=== PATIENT | female | born 1940 | race Caucasian/White ===

== ENCOUNTER 2017-01-02 11:10 | Inpatient (IN) | payer MEDICARE ==
[2017-01-02 11:10] VITALS: BMI 28.3
[2017-01-02 12:59] LABS: BASO # 0.1 K/uL (0.0-0.2); BASO % 0.6 % (0.0-2.0); EOS # 0.1 K/uL (0.0-0.7); EOS % 1.3 % (0.0-4.0); HEMATOCRIT 33.5 % (34.0-47.0); LYMPH # 2.1 K/uL (1.0-4.3); LYMPH % 21.9 % (20.0-40.0); MEAN CORPUSCULAR HEMOGLOBIN 24.6 pg (27.0-31.0); MEAN CORPUSCULAR HGB CONC 31.8 g/dL (33.0-37.0); MEAN PLATELET VOLUME 8.7 fL (7.2-11.7); MONO # 0.9 K/uL (0.0-0.8); MONO % 9.4 % (0.0-10.0); RED CELL DISTRIBUTION WIDTH 16.7 % (11.5-14.5); WHITE BLOOD COUNT 9.8 K/uL (4.8-10.8)
--- NOTE | 2017-01-02 13:10 | RAD ---
HISTORY: chest pain COMPARISON: Chest x-ray performed 04/10/14 TECHNIQUE: Chest PA and lateral FINDINGS: Examination limited by habitus. LUNGS: Mild biapical pleural thickening. Mild bilateral lateral pleural thickening. No focal consolidation. Chronic appearing interstitial markings. Please note that chest x-ray has limited sensitivity for the detection of pulmonary masses. PLEURA: No significant pleural effusion identified. No definite pneumothorax . CARDIOVASCULAR: Heart size appears top normal. Atherosclerotic calcifications. OSSEOUS STRUCTURES: Mildly displaced right lateral 11th rib fracture. Osseous demineralization. Degenerative changes of the spine and shoulders. Acromioclavicular arthropathy. VISUALIZED UPPER ABDOMEN: Unremarkable. OTHER FINDINGS: None. IMPRESSION: Mildly displaced right lateral 11th rib fracture, appears acute. Correlate clinically. Additional findings as above.
[2017-01-02 13:11] LABS: MEAN CELL VOLUME 77.4 fL (81.0-99.0)
[2017-01-02 13:12] LABS: CHLORIDE 93 mmol/L (98-107); POTASSIUM 3.5 mmol/L (3.6-5.2); SODIUM 137 mmol/L (132-148)
[2017-01-02 13:14] LABS: ALKALINE PHOSPHATASE 276 U/L (38-126); AST/SGOT 66 U/L (14-36); BILIRUBIN,TOTAL 0.8 mg/dL (0.2-1.3); CARBON DIOXIDE 31 mmol/L (22-30); GFR AFRICAN-AMERICAN 48; TOTAL PROTEIN 7.8 g/dL (6.3-8.3)
[2017-01-02 13:15] LABS: ALT/SGPT 73 U/L (9-52); BLOOD UREA NITROGEN 23 mg/dL (7-17); CALCIUM 9.3 mg/dl (8.6-10.4); GLUCOSE,RANDOM 91 mg/dL (65-105)
--- NOTE | 2017-01-02 13:29 | C.PDOC ---
History Of Present Illness Patient is a 76 y/o female, whose PMHx includes diabetes, HTN, and chronic ear infections, that is brought to the ED by son for evaluation of multiple syncopal episodes over the last month. Patient was found unconscious on the kitchen floor by neighbor today. It is unclear how long the patient had been unconscious for. Patient complains of occasional chest pain but no chest pain at the moment. Patient also complains of pain to right upper jaw/TMJ, and pain to right ribs below breast s/p fall. Otherwise, denies any shortness of breath, fever, chills, or any other associated symptoms at this time. Time Seen by Provider: 01/02/17 12:17 Chief Complaint (Nursing): Syncope History Per: Patient History/Exam Limitations: no limitations Onset/Duration Of Symptoms: Days Current Symptoms Are (Timing): Still Present Fall Associated With With Symptoms: Yes Recent travel outside of the [place]: No Additional History Per: Family Past Medical History Reviewed: Historical Data, Nursing Documentation, Vital Signs Vital Signs: Last Vital Signs Temp Pulse 74 01/02/17 16:44 Resp 18 01/02/17 16:44 BP 108/75 01/02/17 16:44 Pulse Ox 95 01/02/17 18:56 - Medical History PMH: Arthritis, Asthma, Depression, Diabetes, Fractures (RT ARM), Gastritis, HTN , Kidney Stones (PASSED NO SURGERY), Chronic Kidney Disease, Sleep Apnea (C-PAP) Comment Only: Alzheimer's Disease (MEMORY LOSS) Surgical History: Tonsillectomy - [facility] Procedures CL FX REDUC-RADIUS/ULNA (03/27/14) INJECTION INTO JOINT (04/17/14) OP RED-INT FIX RAD/ULNA (04/17/14) OTHER JOINT MOBILIZATION (04/17/14) Family History: States: Unknown Family Hx, Hypertension - Social History Hx Tobacco Use: No Hx Alcohol Use: No Hx Substance Use: No - Immunization History Hx Tetanus Toxoid Vaccination: No Hx Influenza Vaccination: No Hx Pneumococcal Vaccination: No Review Of Systems Except As Marked, All Systems Reviewed And Found Negative. Constitutional: Negative for: Fever, Chills ENT: Positive for: Other (right jaw pain) Cardiovascular: Positive for: Other (right rib pain). Negative for: Chest Pain , Palpitations, Edema, Light Headedness Respiratory: Negative for: Cough, Shortness of Breath, Sputum, Wheezing Musculoskeletal: Negative for: Back Pain Neurological: Negative for: Weakness, Numbness, Headache, Dizziness Physical Exam - Physical Exam Appears: Non-toxic, Other (mildly uncomfortable) Skin: Normal Color, Warm, Dry Head: Atraumatic, Normacephalic, Other (Pt has difficulty fully opening mouth; tenderness and swelling to right TMJ) Eye(s): bilateral: Normal Inspection, EOMI Oral Mucosa: Moist Neck: Normal ROM, No Midline Cervical Tenderness, No Paracervical Tenderness, Supple Chest: Symmetrical, No Deformity, Tenderness (anterior lateral ribs below breast ) Cardiovascular: Rhythm Regular, No Murmur Respiratory: Other (bilateral basilar crackles, R > L) Gastrointestinal/Abdominal: Soft, No Tenderness Extremity: Normal ROM, No Pedal Edema, No Calf Tenderness, Capillary Refill (< 2 sec.), No Deformity Extremity: Bilateral: Normal Color And Temperature Pulses: Left Dorsalis Pedis: Normal, Right Dorsalis Pedis: Normal Neurological/Psych: Oriented x3 (awake, alert), Normal Speech, Normal Cognition ED Course And Treatment - Laboratory Results Result Diagrams: 01/02/17 12:46 01/02/17 12:46 ECG: Interpreted By Me ECG Rhythm: Sinus Rhythm ECG Interpretation: Abnormal Interpretation Of ECG: nsr, lad, non specific t wave abnormality O2 Sat by Pulse Oximetry: 95 (on RA) Pulse Ox Interpretation: Abnormal (mild hypoxia) - CT Scan/US Head CT Other Rad Studies (CT/US): Read By Radiologist, Radiology Report Reviewed CT/US Interpretation: FINDINGS: HEMORRHAGE: No intracranial hemorrhage. BRAIN : No mass effect or edema. Intracranial atherosclerotic calcifications. Scattered periventricular and subcortical white matter hypodensities, which are nonspecific, but often seen with chronic microvascular ischemic disease. Please note that MRI with diffusion imaging is more sensitive in the detection of acute ischemic event. VENTRICLES: No hydrocephalus. CALVARIUM: Unremarkable. PARANASAL SINUSES: Unremarkable as visualized. No significant inflammatory changes. MASTOID AIR CELLS: Right mastoid air cells appear clear. Status post left mastoidectomy. OTHER FINDINGS: None. IMPRESSION: No acute intracranial pathology identified. Toro status post left mastoidectomy. Please refer to CT orbits for more detailed discussion. Orbits CT Other Rad Studies (CT/US): Read By Radiologist, Radiology Report Reviewed CT/US Interpretation: Findings: The current study reveals no evidence of acute maxillofacial skeletal fractures. . . The visualized bony structures intact. The bony orbits are intact. On the globes are intact. Patient is status post bilateral cataract surgery. Small calcifications seen along the medial and lateral margins of the right and medial margin left globe at the insertion sites of the extraocular musculature. No retrobulbar are collections are hemorrhages. Optic nerves and extraocular musculature unremarkable. The frontal and sphenoid sinuses are slightly underpneumatized however the remaining visualized paranasal sinuses are well-developed. The paranasal sinuses are relatively well aerated with no fluid levels seen to suggest acute sinusitis. Minor mucosal thickening noted in the left chamber sphenoid sinus with minimal mucosal thickening in several ethmoid air cells. . The nasal bones and maxillary intact. The nasal spine of the maxilla also intact. Postoperative changes left middle ear canal and mastoid air complex. There has been partial resection of the the posterior and superior mastoid air cells which were or adjacent and making up the posterior and superior bony wall of the external auditory canal. Several residual left sided superior mastoid air cells are opacified which could be due to some granulation tissue scarring or. There appears to be some scarring/ granulation tissue lining the inner margin of the external auditory canal and covering the residual mastoid defect. . There is soft tissue also noted within the attic likely representing postoperative granulation tissue as well. The definitive bony dehiscence of the tegmen tympani. The drum spur as well as the ossicular chain have been removed. Thickening and presumed scarring of the left tympanic membrane on. Some residual scarring also lines the middle ear canal is well. Impression: No acute maxillofacial skeletal fractures. Stable postoperative resection changes left mastoid air complex as detailed above. Status post bilateral cataract surgery. Progress Note: Head CT, orbits/facial CT, EKG, CXR, and labs ordered and reviewed. Medical Decision Making Medical Decision Makin77 y/o female with htn dmdiscussed with Dr Hinson and Dr Armstrong, and multiple syncopal episodes over last month. will admit. Disposition Discussed With : Bola Hinson Doctor Will See Patient In The: Hospital - Disposition Disposition: HOSPITALIZED Disposition Time: 14:45 Condition: SERIOUS - Clinical Impression Clinical Impression: Syncope - PA / UNDERWATER ROBOTICIST / Resident Statement MD/DO has reviewed & agrees with the documentation as recorded. - Scribe Statement The provider has reviewed the documentation as recorded by the Roibe Reddy Pearson All medical record entries made by the Roibe were at my direction and personally dictated by me. I have reviewed the chart and agree that the record accurately reflects my personal performance of the history, physical exam, medical decision making, and the department course for this patient. I have also personally directed, reviewed, and agree with the discharge instructions and disposition. Decision To Admit - Pt Status Changed To: Hospital Disposition Of: Inpatient - Admit Certification Admit to Inpatient:: After my assessment, the patient will require hospitalization for at least two midnights. This is because of the severity of symptoms shown, intensity of services needed, and/or the medical risk in this patient being treated as an outpatient. - InPatient: Physician Admission Certification: I certify that this patient requires 2 or more midnights of care for the following reason:: pt needs cardiac workup for multiple syncopal episodes - . Bed Request Type: Telemetry Patient Diagnosis: Syncope
--- NOTE | 2017-01-02 13:59 | CT ---
PROCEDURE: CT HEAD WITHOUT CONTRAST. HISTORY: syncope COMPARISON: Noncontrast head CT performed 03/27/14 TECHNIQUE: Axial computed tomography images were obtained through the head/brain without intravenous contrast. Radiation dose: Total exam DLP = 981.84 mGy-cm. This CT exam was performed using one or more of the following dose reduction techniques: Automated exposure control, adjustment of the mA and/or kV according to patient size, and/or use of iterative reconstruction technique. FINDINGS: HEMORRHAGE: No intracranial hemorrhage. BRAIN: No mass effect or edema. Intracranial atherosclerotic calcifications. Scattered periventricular and subcortical white matter hypodensities, which are nonspecific, but often seen with chronic microvascular ischemic disease. Please note that MRI with diffusion imaging is more sensitive in the detection of acute ischemic event. VENTRICLES: No hydrocephalus. CALVARIUM: Unremarkable. PARANASAL SINUSES: Unremarkable as visualized. No significant inflammatory changes. MASTOID AIR CELLS: Right mastoid air cells appear clear. Status post left mastoidectomy. OTHER FINDINGS: None. IMPRESSION: No acute intracranial pathology identified. Toro status post left mastoidectomy. Please refer to CT orbits for more detailed discussion.
--- NOTE | 2017-01-02 14:08 | CT ---
PROCEDURE: CT scan orbits without contrast. . HISTORY: Syncope with right facial pain COMPARISON: Correlation made with concurrent CT scan brain and prior CT scan brain and cervical spine 03/27/2014. TECHNIQUE: Total exam DLP = 834.46 mGy-cm. This CT exam was performed using one or more of the following dose reduction techniques: Automated exposure control, adjustment of the mA and/or kV according to patient size, and/or use of iterative reconstruction technique. Findings: The current study reveals no evidence of acute maxillofacial skeletal fractures. . . The visualized bony structures intact. The bony orbits are intact. On the globes are intact. Patient is status post bilateral cataract surgery. Small calcifications seen along the medial and lateral margins of the right and medial margin left globe at the insertion sites of the extraocular musculature. No retrobulbar are collections are hemorrhages. Optic nerves and extraocular musculature unremarkable. The frontal and sphenoid sinuses are slightly underpneumatized however the remaining visualized paranasal sinuses are well-developed. The paranasal sinuses are relatively well aerated with no fluid levels seen to suggest acute sinusitis. Minor mucosal thickening noted in the left chamber sphenoid sinus with minimal mucosal thickening in several ethmoid air cells. . The nasal bones and maxillary intact. The nasal spine of the maxilla also intact. Postoperative changes left middle ear canal and mastoid air complex. There has been partial resection of the the posterior and superior mastoid air cells which were or adjacent and making up the posterior and superior bony wall of the external auditory canal. Several residual left sided superior mastoid air cells are opacified which could be due to some granulation tissue scarring or. There appears to be some scarring/ granulation tissue lining the inner margin of the external auditory canal and covering the residual mastoid defect. . There is soft tissue also noted within the attic likely representing postoperative granulation tissue as well. The definitive bony dehiscence of the tegmen tympani. The drum spur as well as the ossicular chain have been removed. Thickening and presumed scarring of the left tympanic membrane on. Some residual scarring also lines the middle ear canal is well Impression: No acute maxillofacial skeletal fractures. Stable postoperative resection changes left mastoid air complex as detailed above. Status post bilateral cataract surgery.
[2017-01-02 16:47] LABS: RBC URINE < 1 /hpf (0-3); URINE BILIRUBIN NEGATIVE (NEGATIVE); URINE BLOOD NEGATIVE (NEGATIVE); URINE COLOR Yellow (YELLOW); URINE GLUCOSE (UA) NORMAL (Normal); URINE KETONE NEGATIVE (NEGATIVE); URINE LEUKOCYTE ESTERASE TRACE Leu/uL (Negative); URINE PROTEIN 1+ mg/dL (NEGATIVE); URINE UROBILINOGEN NORMAL mg/dL (0.2-1.0); WBC URINE 10 /hpf (0-5)
--- NOTE | 2017-01-02 16:48 | RAD ---
Indication: s/p fall, hip pain Bilateral hips with pelvis Comparison: Pelvis radiograph performed 03/26/14 Findings: Degenerative changes of the lower lumbar spine. Osseous demineralization limits evaluation for acute fracture lines. Bilateral joint space narrowing of the hip joints. No acute displaced fracture or dislocation identified. Sacroiliac joints appear intact. Mild constipation. Soft tissues appear unremarkable. No evidence of radiopaque foreign body. Pelvic calcifications, likely phleboliths. Impression: Osseous demineralization. Degenerative changes. No acute displaced fracture or dislocation evident. If high clinical index of suspicion, suggest cross-sectional imaging for further evaluation. Otherwise, if symptoms persist or if there is continued clinical concern, x-ray follow-up in 7-10 days should be considered.
--- NOTE | 2017-01-02 17:37 | CP.PCM.HP ---
<Kim Lozada - Last Filed: 01/02/17 18:34> History of Present Illness - History of Present Illness History of Present Illness: CC: Syncope Patient is a 76 year old female with past medical history of hypertension, hyperlipidemia, diabetes mellitus, and recurrent otitis media presenting to the ED with syncope. Patient states she has had 6 syncopal episodes in the past month, with most recent episode last night. Patient states each syncopal episode is preceded by diaphoresis, nausea, and dizziness, having to hold on to chair/counter before falling to ground. Patient can recall dizziness and nausea but does not remember falling to the ground. Patient is unsure if she lost consciousness during episodes and does not know how long she was on the ground. She states no one witnessed her 6 falls, but neighbor and/or brother has found her and awakened her on each occasion. Patient admits her neighbor found her on the floor in vomitus and urine. Patient denies history of seizures. Family reports patient has been forgetful in the past. She commonly misplaces her belongings and has left the stove on. She also notes history of multiple "mini-strokes" which started at age 17. She also admits to potential GI bleed as she had EGD and colonoscopy at [facility] with Dr. Andres Holland last week. Patient reports she underwent procedures to work-up black stools x 1 week prior and has had dysphagia to solids, losing 25 pounds in past month. She also notes a vague history of liver disease and states she could potentially require liver transplant in the future. Patient denies headache, fever, chills, visual changes, chest pain, palpitations, shortness of breath, cough, abdominal pain, nausea/vomiting, diarrhea/constipation, hematuria , lower extremity swelling, numbness, and tingling. 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), depression, cataracts FamHx: Father - prostate ca, DM, HTN, CAD, Mother - unknown, when pt was young; sisters - DM, SLE, brother - esophageal ca Meds: Ursodiol 500mg QID, Metformin 500mg, Januvia 100mg, Clopidogrel 75mg, Rosuvastatin 10mg, Valsartan/HCTZ 80/12.5, Mirtazapine 15mg, Escitalopram 20mg, Donepezil 10mg, Dexilant 30mg Allergies: NKDA PSHx: tonsillectomy, fx reduction radius/ulna (03/27/14), mastoidectomy x 2, bilateral catarct Hospitalizations: denies other than for scheduled surgeries Social: retired, lives alone in [facility] apartment (with elevator) but "leaves door open for neighbor", denies tobacco, alcohol, recreational drug use Present on Admission - Present on Admission Any Indicators Present on Admission: No History of DVT/PE: No History of Uncontrolled Diabetes: No Urinary Catheter: No Decubitus Ulcer Present: No Review of Systems - Constitutional Constitutional: Fatigue, Lethargy, Weight Loss, Weakness. absent: Chills, Fever , Headache - EENT Eyes: absent: Blurred Vision, Change in Vision Ears: Decreased Hearing, Other (decreased hearing to left ear secondary to mastoidectomy ). absent: Tinnitus Nose/Mouth/Throat: Dysphagia (dysphagia to solids ). absent: Nasal Congestion - Cardiovascular Cardiovascular: Syncope. absent: Chest Pain, Diaphoresis, Dyspnea, Pain Radiating to Arm/Neck/Jaw, Leg Edema, Lightheadedness, Orthopnea, Rapid Heart Rate - Respiratory Respiratory: absent: Cough, Dyspnea, Wheezing, Chest Congestion - Gastrointestinal Gastrointestinal: Dysphagia, Hematochezia, Melena. absent: Abdominal Pain, Diarrhea, Fecal Incontinence, Hematemesis, Nausea, Vomiting - Genitourinary Genitourinary: Difficulty Urinating, Urinary Incontinence - Musculoskeletal Additional comments: hip pain and right rib pain - Integumentary Integumentary: absent: Changing Lesions, New Lesions - Neurological Neurological: Dizziness, Frequent Falls, Memory Loss, Syncope. absent: Numbness , Tingling, Weakness - Psychiatric Psychiatric: Anxiety, Depression - Endocrine Additional Comments: history of diabetes Past Patient History - Past Medical History & Family History Past Medical History?: Yes - Past Social History Smoking Status: Light Smoker < 10 Cigarettes Daily - CARDIAC Hx Hypertension: Yes - PULMONARY Hx Asthma: Yes Hx Sleep Apnea: Yes (C-PAP) - NEUROLOGICAL Hx Alzheimer's Disease: (MEMORY LOSS) - HEENT Hx HEENT Problems: Yes Hx Cataracts: Yes - RENAL Hx Chronic Kidney Disease: Yes Hx Kidney Stones: Yes (PASSED NO SURGERY) - ENDOCRINE/METABOLIC Hx Endocrine Disorders: Yes Hx Diabetes Mellitus Type 2: Yes - MUSCULOSKELETAL/RHEUMATOLOGICAL Hx Arthritis: Yes Hx Fractures: Yes (RT ARM) - GASTROINTESTINAL Hx Gastritis: Yes - GENITOURINARY/GYNECOLOGICAL Hx Genitourinary Disorders: Yes (HX.STONES) Hx Bladder Stone: Yes - PSYCHIATRIC Hx Depression: Yes Hx Substance Use: No - SURGICAL HISTORY Hx Tonsillectomy: Yes - ANESTHESIA Hx Anesthesia: Yes Hx Anesthesia Reactions: No Hx Malignant Hyperthermia: No Meds Allergies/Adverse Reactions: Allergies Allergy/AdvReac Type Severity Reaction Status Date / Time No Known Allergies Allergy Verified 01/02/17 11:34 Physical Exam - Constitutional Appears: Non-toxic, No Acute Distress - Head Exam Head Exam: NORMAL INSPECTION, NORMOCEPHALIC. absent: ATRAUMATIC Additional comments: no contusions or ecchymosis noted to right cheek - Eye Exam Eye Exam: EOMI, PERRL - ENT Exam ENT Exam: Mucous Membranes Moist - Neck Exam Neck exam: Positive for: Full Rom, Normal Inspection - Respiratory Exam Respiratory Exam: Clear to Auscultation Bilateral, NORMAL BREATHING PATTERN. absent: Rales, Rhonchi, Wheezes - Cardiovascular Exam Cardiovascular Exam: +S1, +S2. absent: Bradycardia, Tachycardia, Diastolic murmur, Systolic Murmur - GI/Abdominal Exam GI & Abdominal Exam: Normal Bowel Sounds, Soft, Tenderness. absent: Distended, Firm, Guarding, Mass Additional comments: right upper quadrant abdominal pain to palpation - Rectal Exam Rectal Exam: absent: Bloody Stool - Extremities Exam Extremities exam: Positive for: normal inspection, pedal pulses present. Negative for: pedal edema, tenderness - Back Exam Additional comments: tenderness to right 11th rib - Neurological Exam Neurological exam: Alert, Oriented x3 Additional comments: Stength 5/5 to upper and lower extremity cranial nerves grossly intact sensation intact EOMI, Pupils equal and reactive to light bilaterally negative Babinksi sign finger to nose test intact - Psychiatric Exam Psychiatric exam: Normal Affect, Normal Mood - Skin Skin Exam: Intact, Normal Color Results - Vital Signs Recent Vital Signs: Last Vital Signs Temp Pulse 74 01/02/17 16:44 Resp 18 01/02/17 16:44 BP 108/75 01/02/17 16:44 Pulse Ox 95 01/02/17 16:56 - Labs Result Diagrams: 01/02/17 12:46 01/02/17 12:46 Labs: Laboratory Results - last 24 hr 01/02/17 01/02/17 01/02/17 16:38 16:38 16:44 Magnesium 2.0 Ammonia Urine Color Yellow Urine Clarity Clear Urine pH 6.0 Ur Specific Golden 1.008 Urine Protein 1+ H Urine Glucose (UA) Normal Urine Ketones Negative Urine Blood Negative Urine Nitrate Negative Urine Bilirubin Negative Urine Urobilinogen Normal Ur Leukocyte Esterase Trace Urine WBC (Auto) 10 H Urine RBC (Auto) < 1 Ur Squamous Epith Cells 5 Urine Opiates Screen Negative Urine Methadone Screen Negative Ur Barbiturates Screen Negative Ur Phencyclidine Scrn Negative Ur Amphetamines Screen Negative U Benzodiazepines Scrn Negative U Oth Cocaine Metabols Negative U Cannabinoids Screen Negative 01/02/17 16:44 Magnesium Ammonia < 9 L Urine Color Urine Clarity Urine pH Ur Specific Golden Urine Protein Urine Glucose (UA) Urine Ketones Urine Blood Urine Nitrate Urine Bilirubin Urine Urobilinogen Ur Leukocyte Esterase Urine WBC (Auto) Urine RBC (Auto) Ur Squamous Epith Cells Urine Opiates Screen Urine Methadone Screen Ur Barbiturates Screen Ur Phencyclidine Scrn Ur Amphetamines Screen U Benzodiazepines Scrn U Oth Cocaine Metabols U Cannabinoids Screen Assessment & Plan - Assessment and Plan (Free Text) Assessment: Syncope Cardiogenic vs. Neurogenic vs. Polypharmacy vs. Anemia vs. Hypoglycemia vs. Infection Cardiogenic Troponin I <0.0120 f/u MAG panel and serial EKGs Patient had Shira Scan stress test in [address] Lopez which appears to have been normal Negative for orthostatics Blood pressure stable at 108/75 Hold home anti-hypertensive agent and diuretic - Valsartan 80 mg po daily and Hydrochlorothiazide 12.5 mg po daily f/u Echocardiogram f/u Carotid Doppler Consider Cardiology Consult, Dr. Lopez, pending results Neurogenic Head CT: No acute intracranial pathology identified Consider seizure as patient had loss of urine and vomitus -procalcitonin ordered stat f/u HIV, B12, Folate, RPR Neurology Consulted, Dr. Lopez, help appreciated Seizure precautions, Aspiration precautions, Fall precautions Polypharmacy Hold antihypertensive agents as above Hold hypoglycemic agents - Metformin 500 mg po daily and Januvia 100 mg po daily Hold Mirtazapine 15 mg po HS Microcytic Anemia Hemoglobin/Hematocrit 10.7/33.5 MCV 77.4 Admits to dark stools f/u Iron studies - Iron, TIBC, % Saturation, Ferritin, Haptoglobin, Reticulocyte count f/u FOBT GI consulted, Dr. Peña, help appreciated Recent colonoscopy for colonic polyps but needs repeat as patient could not tolerate prep due to emesis Patient had recent EGD. Will reach out to Dr. Andres Holland at [place] for report. Hypoglycemia currently not hypoglycemic Hold hypoglycemic agents Accuchecks f/u hemoglobin a1c Possible Infection No leukocytosis CXR: no acute pulmonary disease UA: negative, follow-up culture f/u Procalcitonin Right Rib Fracture Pain medications limited as we are not aware of what type of liver disease patient has Ice packs to rib On Normal Saline IV @75cc CXR: Mildly displaced lateral 11th rib fracture, appears acute. f/u Hip X-ray Consult Orthopedic Surgeon, Dr. Awad, help appreciated. Liver Disease Patient follows with GI, Dr. Holland. Transaminitis - AST/ALT: 66/73 Alkaline Phosphatase 276 Ammonia <9L f/u Hepatitis Panel f/u HIV Monitor PAULA BUN/CR 23/1.3 GFR 40 On normal saline IV @75cc Monitor Dysphagia patient not tolerating solids bedside swallow evaluation Clear Liquid Diet History of Dementia Continue on home medication Aricept 10 mg po HS Prophylaxis VTE CI due to GI bleed GI: continue home medication Dexilant 30 mg po daily SCDs PT/OT evaluation - Date & Time Date: 01/02/17 Time: 17:48 <Zoila Ruby V - Last Filed: 01/02/17 23:33> Results - Vital Signs Recent Vital Signs: Last Vital Signs Temp 98.1 F 01/02/17 22:08 Pulse 80 01/02/17 22:08 Resp 17 01/02/17 22:08 BP 96/52 L 01/02/17 22:08 Pulse Ox 96 01/02/17 22:08 - Labs Result Diagrams: 01/02/17 12:46 01/02/17 12:46 Labs: Laboratory Results - last 24 hr 01/02/17 01/02/17 01/02/17 16:38 16:38 16:44 Magnesium 2.0 Iron TIBC % Saturation Ammonia Total Creatine Kinase CK-MB (Mass) Troponin I, Quant NT-Pro-B Natriuret Pep Triglycerides Cholesterol LDL Cholesterol Direct HDL Cholesterol Lipase Prolactin 17.7 Urine Color Yellow Urine Clarity Clear Urine pH 6.0 Ur Specific Golden 1.008 Urine Protein 1+ H Urine Glucose (UA) Normal Urine Ketones Negative Urine Blood Negative Urine Nitrate Negative Urine Bilirubin Negative Urine Urobilinogen Normal Ur Leukocyte Esterase Trace Urine WBC (Auto) 10 H Urine RBC (Auto) < 1 Ur Squamous Epith Cells 5 Urine Opiates Screen Negative Urine Methadone Screen Negative Ur Barbiturates Screen Negative Ur Phencyclidine Scrn Negative Ur Amphetamines Screen Negative U Benzodiazepines Scrn Negative U Oth Cocaine Metabols Negative U Cannabinoids Screen Negative RPR 01/02/17 01/02/17 01/02/17 16:44 19:11 19:11 Magnesium Iron 67 TIBC 308 % Saturation 22 Ammonia < 9 L Total Creatine Kinase 49 CK-MB (Mass) 0.30 Troponin I, Quant < 0.0120 NT-Pro-B Natriuret Pep 105 Triglycerides 132 Cholesterol 146 LDL Cholesterol Direct 69 HDL Cholesterol 35 Lipase 118 Prolactin Urine Color Urine Clarity Urine pH Ur Specific Golden Urine Protein Urine Glucose (UA) Urine Ketones Urine Blood Urine Nitrate Urine Bilirubin Urine Urobilinogen Ur Leukocyte Esterase Urine WBC (Auto) Urine RBC (Auto) Ur Squamous Epith Cells Urine Opiates Screen Urine Methadone Screen Ur Barbiturates Screen Ur Phencyclidine Scrn Ur Amphetamines Screen U Benzodiazepines Scrn U Oth Cocaine Metabols U Cannabinoids Screen RPR 01/02/17 19:11 Magnesium Iron TIBC % Saturation Ammonia Total Creatine Kinase CK-MB (Mass) Troponin I, Quant NT-Pro-B Natriuret Pep Triglycerides Cholesterol LDL Cholesterol Direct HDL Cholesterol Lipase Prolactin Urine Color Urine Clarity Urine pH Ur Specific Golden Urine Protein Urine Glucose (UA) Urine Ketones Urine Blood Urine Nitrate Urine Bilirubin Urine Urobilinogen Ur Leukocyte Esterase Urine WBC (Auto) Urine RBC (Auto) Ur Squamous Epith Cells Urine Opiates Screen Urine Methadone Screen Ur Barbiturates Screen Ur Phencyclidine Scrn Ur Amphetamines Screen U Benzodiazepines Scrn U Oth Cocaine Metabols U Cannabinoids Screen RPR Nonreactive Attending/Attestation - Attestation I have personally seen and examined this patient.: Yes I have fully participated in the care of the patient.: Yes I have reviewed all pertinent clinical information: Yes Notes (Text): Patient seen, examined and case discussed with day-time resident. Patient seen on 01/02/17 in [facility] 6 in the ED with patient's son and daughter-in law at bedside. Patient is awake, alert, and pleasant gentle lady. Patient comes in to ED follow-ing syncopal episode wherein a neigbhor found her in her vomit and associated urinary incontinence. This is not witnessed. Patient reports prior to episode autonomic symptoms of dizziness and nausea. Patient also reports this is her 6th episode over the course of the home, but what brought her to come in was the associated rib pain. Patient reports she has had similar syncopal episodes at home, but are unwitnessed, unknown time of LOC, but she is arousable when found by neighbors and relatives. Patient lives in apartment on 7th floor, elevator, and is considered independent and at times forgetful per discussion with family. Patient takes medications including arb/ thiazide diuretic, metformin/januvia, remeron/lexapro, plavix, donezpil around 10am in the morning everyday all the medications at the the same, and not spaced apart and she gives herself her medications, and utlizes a pill box. Patient reports she has had a history of ministroke when she was 17 but none since. 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 Patient is also undergoing a GI workup. Patient is seen by [facility], located at [facility]. Patient reports a unintentional weight loss 25lbs (175-->150lbs) wherein she reports preference for liquids and reports when she tries solids she feels like it gets stuck in her mouth. Patient reports she has had an EGD recently but cannot recall the findings. Patient also completed suboptimial colonoscopy last week for history of colonic polyp requiring surviellance and also rectal bleeding. Patient was due for repeat colonoscopy since she did not adequate take the bowel prep due to nausea. Patient also reports a history of cirrhosis, wherein she was told she is recommended for a liver transplant but not any time soon. Denies hx of alcohol, medications, etc Per review of EMR, patient has been on this medication regimen was at least two years, and has had a lexiscan stress with Dr. Lopez in 2014 which was normal. Family at bedside is surprised at many of the details presented at bedside. Patient is full code at this time. No prior documented history pertaining to end of life care. Will need to follow-up with patient's primary Dr. Armstrong regarding 1) recent changes to medications, 2) recent findings given GI workup. Assessment/Plan 1) Syncope * Multiple to consider: polypharmacy, hypotension, neurocardiogenic, possible seizure, dehydration/malnutrition, gi bleed? * Ct head and CT orbits completed by ED; reviewed * Reviewed medication list: held blood pressure medication given alkalosis likely secondary to diuretic, held metformin/januvia given questionable hx of cirrhosis, continue donezpil and continue lexapro, and continue plavix * Fluid loss: patient has diarrhea symptoms associated with bowel prep recent due to colonscopy last week * Rectal bleeding: patient has hx of rectal bleeding this past week and being monitor for colonic polyp outpatient workup with Dr. Andres Holland, GI-->will need to follow-up and consulted GI help appreciated; anemia workup including iron studies, ferritin, occult blood, HIV, Hepatitis * possible seizure? consult neurology help appreciated; prolactin normal * Malnutrition: patient dependent on solids--f/u dietary referral and calorie counts * hx of cirrhosis?: ordered for ammonia which is normal, anemia workup including iron studies, ferritin, occult bood, HIV, Hepatitis * PT/OT eval * Fall risk protocol * Seizure precautions * pending cpk for consideration of rhabdomylosis * will follow-up ROMIs, EKG, and echo prior to consulting cardiology * Accuechecks given history of diabetes 2) Rib fracture * orthopedics consult 3) Prophylactic care * hold VTE ppx given GI bleed * Protonix 40mg IV daily * Fall risk * Seizure precautions * Dietary referral * PT/OT eval
[2017-01-02] MEDS ORDERED: Potassium Chloride 20 mEq ER Tab PO ONE (19:00)
[2017-01-02 19:32] LABS: CHOLESTEROL 146 mg/dL (0-199)
[2017-01-02 19:34] LABS: IRON 67 ug/dL (37-170)
--- NOTE | 2017-01-02 20:01 | CP.PCM.CON ---
History of Present Illness - History of Present Illness History of Present Illness: Mrs. Barbour is a 76-year-old woman with a past medical history of cirrhosis, hypertension, dyslipidemia, diabetes and previous stroke (many years ago), who has been having frequent episodes of loss of consciousness after becoming diaphoretic, dizzy and nauseous. The most recent episode was yesterday and resulted in a fractured rib. She had an episode about 1 year ago that had led to right arm fracture. The patient was found yesterday with urinary incontinence of vomiting after she had possibly syncopized. She denies visual changes, headache, nausea, abdominal pain, weakness, sensory changes or other associated symptoms. She denies having palpitations or fluttering heart beats. She did not have any other complaints. Review of Systems - Review of Systems All systems: reviewed and no additional remarkable complaints except Past Patient History - Past Medical History & Family History Past Medical History?: Yes - Past Social History Smoking Status: Light Smoker < 10 Cigarettes Daily - CARDIAC Hx Hypertension: Yes - PULMONARY Hx Asthma: Yes Hx Sleep Apnea: Yes (C-PAP) - NEUROLOGICAL Hx Alzheimer's Disease: (MEMORY LOSS) - HEENT Hx HEENT Problems: Yes Hx Cataracts: Yes - RENAL Hx Chronic Kidney Disease: Yes Hx Kidney Stones: Yes (PASSED NO SURGERY) - ENDOCRINE/METABOLIC Hx Endocrine Disorders: Yes Hx Diabetes Mellitus Type 2: Yes - MUSCULOSKELETAL/RHEUMATOLOGICAL Hx Arthritis: Yes Hx Fractures: Yes (RT ARM) - GASTROINTESTINAL Hx Gastritis: Yes - GENITOURINARY/GYNECOLOGICAL Hx Genitourinary Disorders: Yes (HX.STONES) Hx Bladder Stone: Yes - PSYCHIATRIC Hx Depression: Yes Hx Substance Use: No - SURGICAL HISTORY Hx Tonsillectomy: Yes - ANESTHESIA Hx Anesthesia: Yes Hx Anesthesia Reactions: No Hx Malignant Hyperthermia: No Meds Allergies/Adverse Reactions: Allergies Allergy/AdvReac Type Severity Reaction Status Date / Time No Known Allergies Allergy Verified 01/02/17 11:34 - Medications Medications: Current Medications Clopidogrel Bisulfate (Plavix) 75 mg PO DAILY [facility] Donepezil HCl (Aricept) 10 mg PO HS [facility] Escitalopram Oxalate (Lexapro) 20 mg PO DAILY [facility] Home Med (Dexlansoprazole [Dexilant]) 30 mg PO DAILY [facility] Home Med (Ursodiol [[place]]) 500 mg PO QID [facility] Sodium Chloride (Sodium Chloride 0.9%) 1,000 mls @ 75 mls/hr IV .[id number] [facility] Physical Exam - Constitutional Appears: Well - Head Exam Head Exam: ATRAUMATIC, NORMAL INSPECTION, NORMOCEPHALIC - Eye Exam Eye Exam: EOMI, Normal appearance, PERRL - ENT Exam ENT Exam: Mucous Membranes Moist, Normal Exam - Respiratory Exam Respiratory Exam: Clear to Auscultation Bilateral, NORMAL BREATHING PATTERN - Cardiovascular Exam Cardiovascular Exam: REGULAR RHYTHM, +S1, +S2 - GI/Abdominal Exam GI & Abdominal Exam: Normal Bowel Sounds, Soft. absent: Tenderness - Neurological Exam Neurological exam: Alert, CN II-XII Intact, Normal Gait, Oriented x3, Reflexes Normal - Expanded Neurological Exam Expanded Patient oriented to: person, place, time Cranial nerves: EOM's Intact: Normal, Facial Palsey w/Forehead Movement: Abnormal Left, Facial Sensation: Normal, Gag Reflex: Normal Ataxia: No Cerebellar Function: Finger to Nose: Normal, Heel to Toro: Normal, Romberg: Normal Upper motor neuron: Babinski Sign: Normal, Flo Neglect: Normal, Pronator Drift : Normal, Sensory Extinction: Normal Sensory exam: Lower Extremity 2 Point Discrimination: Normal, Lower Extremity Light Touch: Normal, Lower Extremity Pin Prick: Normal, Lower Extremity Temperature: Normal, Upper Extremity 2 Point Discrimination: Normal, Upper Extremity Light Touch: Normal, Upper Extremity Pin Prick: Normal, Upper Extremity Temperature: Normal Neuro motor strength exam: Left Upper Extremity: 5, Right Upper Extremity: 5, Left Lower Extremity: 5, Right Lower Extremity: 5 DTR: Achilles Tendon Left: 2+, Achilles Tendon Right: 2+, Bicep Left: 2+, Bicep Right: 2+, Brachioradialis Left: 2+, Brachioradialis Right: 2+, Patellar Left: 2 +, Patellar Right: 2+, Tricep Left: 2+, Tricep Right: 2+ - Psychiatric Exam Psychiatric exam: Normal Affect, Normal Mood - Skin Skin Exam: Dry, Intact, Normal Color, Warm Results - Vital Signs Recent Vital Signs: Last Vital Signs Temp Pulse 74 01/02/17 16:44 Resp 18 01/02/17 16:44 BP 108/75 01/02/17 16:44 Pulse Ox 95 01/02/17 18:57 - Labs Result Diagrams: 01/02/17 12:46 01/02/17 12:46 Labs: Laboratory Results - last 24 hr 01/02/17 01/02/17 01/02/17 16:38 16:38 16:44 Magnesium 2.0 Iron TIBC % Saturation Ammonia Total Creatine Kinase CK-MB (Mass) Troponin I, Quant NT-Pro-B Natriuret Pep Triglycerides Cholesterol LDL Cholesterol Direct HDL Cholesterol Lipase Prolactin 17.7 Urine Color Yellow Urine Clarity Clear Urine pH 6.0 Ur Specific [place] 1.008 Urine Protein 1+ H Urine Glucose (UA) Normal Urine Ketones Negative Urine Blood Negative Urine Nitrate Negative Urine Bilirubin Negative Urine Urobilinogen Normal Ur Leukocyte Esterase Trace Urine WBC (Auto) 10 H Urine RBC (Auto) < 1 Ur Squamous Epith Cells 5 Urine Opiates Screen Negative Urine Methadone Screen Negative Ur Barbiturates Screen Negative Ur Phencyclidine Scrn Negative Ur Amphetamines Screen Negative U Benzodiazepines Scrn Negative U Oth Cocaine Metabols Negative U Cannabinoids Screen Negative 01/02/17 01/02/17 01/02/17 16:44 19:11 19:11 Magnesium Iron 67 TIBC 308 % Saturation 22 Ammonia < 9 L Total Creatine Kinase 49 CK-MB (Mass) 0.30 Troponin I, Quant < 0.0120 NT-Pro-B Natriuret Pep 105 Triglycerides 132 Cholesterol 146 LDL Cholesterol Direct 69 HDL Cholesterol 35 Lipase 118 Prolactin Urine Color Urine Clarity Urine pH Ur Specific [place] Urine Protein Urine Glucose (UA) Urine Ketones Urine Blood Urine Nitrate Urine Bilirubin Urine Urobilinogen Ur Leukocyte Esterase Urine WBC (Auto) Urine RBC (Auto) Ur Squamous Epith Cells Urine Opiates Screen Urine Methadone Screen Ur Barbiturates Screen Ur Phencyclidine Scrn Ur Amphetamines Screen U Benzodiazepines Scrn U Oth Cocaine Metabols U Cannabinoids Screen - Imaging and Cardiology CT scan - head Status: Image reviewed by me, Report reviewed by me (No acute findings on CT head.) Assessment & Plan (1) Syncope Assessment and Plan: In this case, the differential includes neurocardiogenic syncope, seizure, hypoperfusion due to polypharmacy and hypotension. I recommend obtaining an MRI of the brain and MRA of the head/neck without contrast. An EEG would also be recommended (awake and drowsy). Echocardiogram with bubble study should be done. May start aspirin 81 mg daily, obtain a lipid panel and check hemoglobin A1C. PT/OT eval and treatment if needed. Thank you for this consultation. Status: Acute Priority: High
[2017-01-02] MEDS ORDERED: Potassium Chloride 20 mEq/15 ml LIQ UD ONE (20:26)
[2017-01-02] MEDS ORDERED: Sodium Chloride 0.9% 1,000 ML ONE (20:26)
[2017-01-02] MEDS: Sodium Chloride 0.9% 1,000 ML IV SCH (20:31)
[2017-01-03 07:43] LABS: INR 1.1
[2017-01-03 07:44] LABS: BASO # 0.1 K/uL (0.0-0.2); BASO % 0.5 % (0.0-2.0); EOS # 0.2 K/uL (0.0-0.7); EOS % 1.9 % (0.0-4.0); HEMATOCRIT 32.2 % (34.0-47.0); LYMPH # 2.4 K/uL (1.0-4.3); LYMPH % 25.7 % (20.0-40.0); MEAN CELL VOLUME 77.4 fL (81.0-99.0); MEAN CORPUSCULAR HGB CONC 32.3 g/dL (33.0-37.0); MEAN PLATELET VOLUME 8.5 fL (7.2-11.7); MONO # 0.9 K/uL (0.0-0.8); MONO % 9.7 % (0.0-10.0); RED CELL DISTRIBUTION WIDTH 16.5 % (11.5-14.5); WHITE BLOOD COUNT 9.4 K/uL (4.8-10.8)
[2017-01-03 07:56] LABS: CHLORIDE 98 mmol/L (98-107); SODIUM 139 mmol/L (132-148)
[2017-01-03 07:58] LABS: GFR AFRICAN-AMERICAN > 60
[2017-01-03 07:59] LABS: ALKALINE PHOSPHATASE 250 U/L (38-126); ALT/SGPT 51 U/L (9-52); AST/SGOT 50 U/L (14-36); BILIRUBIN,TOTAL 0.7 mg/dL (0.2-1.3); BLOOD UREA NITROGEN 15 mg/dL (7-17); CALCIUM 8.7 mg/dl (8.6-10.4); CARBON DIOXIDE 30 mmol/L (22-30); GLUCOSE,RANDOM 91 mg/dL (65-105); TOTAL PROTEIN 6.9 g/dL (6.3-8.3)
[2017-01-03 09:07] LABS: FOLATE 9.3 ng/mL
--- NOTE | 2017-01-03 11:52 | CP.PCM.PN ---
<Kim Lozada - Last Filed: 01/03/17 19:36> Subjective - Date & Time of Evaluation Date of Evaluation: 01/03/17 Time of Evaluation: 11:51 - Subjective Subjective: Patient seen and examined at bedside. Patient states she feels well and denies shortness of breath, palpitations, abdominal pain, nausea, vomiting, diarrhea and constipation. She reports pain to her right ribcage exacerbated with deep breathing. She was encouraged to continue using inspiratory spirometer. Objective - Vital Signs/Intake and Output Vital Signs (last 24 hours): Temp Pulse Resp BP Pulse Ox 98.6 F 69 18 101/63 94 L 01/03/17 01:05 01/03/17 01:30 01/03/17 01:05 01/03/17 01:01/03/17 01:05 - Medications Medications: Current Medications Clopidogrel Bisulfate (Plavix) 75 mg PO DAILY [facility] Last Admin: 01/03/17 11:20 Dose: 75 mg Donepezil HCl (Aricept) 10 mg PO HS [facility] Last Admin: 01/02/17 22:08 Dose: 10 mg Escitalopram Oxalate (Lexapro) 20 mg PO DAILY [facility] Last Admin: 01/03/17 11:20 Dose: 20 mg Famotidine (Pepcid) 20 mg PO DAILY [facility] Last Admin: 01/03/17 11:20 Dose: 20 mg Sodium Chloride (Sodium Chloride 0.9%) 1,000 mls @ 75 mls/hr IV .[id number] [facility] Last Admin: 01/02/17 20:31 Dose: 75 mls/hr Ursodiol (Actigall) 300 mg PO BID [facility] Last Admin: 01/03/17 11:20 Dose: 300 mg - Labs Labs: 01/03/17 07:24 01/03/17 07:24 PT 12.3 SECONDS (9.7-12.2) H 01/03/17 07:24 INR 1.1 01/03/17 07:24 APTT 30 SECONDS (21-34) 01/03/17 07:24 - Constitutional Appears: Non-toxic, No Acute Distress - Head Exam Head Exam: ATRAUMATIC, NORMAL INSPECTION, NORMOCEPHALIC - Eye Exam Eye Exam: EOMI, Normal appearance, PERRL - ENT Exam ENT Exam: Mucous Membranes Moist - Neck Exam Neck Exam: Full ROM, Normal Inspection - Respiratory Exam Respiratory Exam: Clear to Ausculation Bilateral, NORMAL BREATHING PATTERN. absent: Rales, Rhonchi, Wheezes - Cardiovascular Exam Cardiovascular Exam: +S1, +S2. absent: Tachycardia - GI/Abdominal Exam GI & Abdominal Exam: Soft, Normal Bowel Sounds - Extremities Exam Extremities Exam: Full ROM, Normal Inspection - Neurological Exam Neurological Exam: Alert, Awake, Oriented x3 Neuro motor strength exam: Left Upper Extremity: 5, Right Upper Extremity: 5, Left Lower Extremity: 5, Right Lower Extremity: 5 - Psychiatric Exam Psychiatric exam: Normal Affect, Normal Mood - Skin Skin Exam: Intact, Normal Color Assessment and Plan - Assessment and Plan (Free Text) Assessment: Syncope Cardiogenic vs. Neurogenic vs. Polypharmacy vs. Anemia vs. Hypoglycemia vs. Infection Cardiogenic Troponin I <0.0120, MAG Panel negative x 3 EKG: NSR at rate of 74, left axis deviation Patient had Shira Scan stress test in [address] Lopez which appears to have been normal. Dr. Lopez to examine patient tomorrow. Negative for orthostatics Blood pressure stable at 120/76 Hold home anti-hypertensive agent and diuretic - Valsartan 80 mg po daily and Hydrochlorothiazide 12.5 mg po daily f/u Echocardiogram f/u Carotid Doppler Neurogenic Head CT: No acute intracranial pathology identified Consider seizure as patient had loss of urine and vomitus prolactin 17.7 HIV - negative, B12 419, Folate 9.3, RPR - nonreactive Neurology Consulted, Dr. Lopez, help appreciated Seizure precautions, Aspiration precautions, Fall precautions Polypharmacy Hold antihypertensive agents as above Hold hypoglycemic agents - Metformin 500 mg po daily and Januvia 100 mg po daily Hold Mirtazapine 15 mg po HS Microcytic Anemia Hemoglobin/Hematocrit 10.4/32.2 MCV 77.4 Admits to dark stools f/u Iron studies - Iron 67, TIBC 308, % Saturation 22, Ferritin 85.7, Haptoglobin, Reticulocyte count 1.3 FOBT - negative GI consulted, Dr. Peña, help appreciated -No overt GI bleed. Patient to follow- up as outpatient on 01/16. Recommend continuing PPI. Recent colonoscopy for colonic polyps but needs repeat as patient could not tolerate prep due to emesis Patient had recent EGD. Will reach out to Dr. Andres Holland at [facility] for report. Hypoglycemia Sugar 96 with hypoglycemic agents held currently not hypoglycemic Hold hypoglycemic agents Accuchecks f/u hemoglobin a1c Possible Infection No leukocytosis CXR: no acute pulmonary disease UA: negative, follow-up culture f/u Procalcitonin Right Rib Fracture Pain medications limited as we are not aware of what type of liver disease patient has Ice packs to rib Encouraged to use incentive spirometer On Normal Saline IV @75cc CXR: Mildly displaced lateral 11th rib fracture, appears acute. Hip X-ray: No acute displaced fracture or dislocation evident. Ribs with Chest X-Ray: Displaced rib fracture at the lateral right lower chest, possibly the right lateral 9th rib. No evidence of pneumothorax. Consult Orthopedic Surgeon, Dr. Awad, help appreciated. Liver Disease Patient follows with GI, Dr. Holland. Transaminitis - AST/ALT: 50/51 , improving Alkaline Phosphatase 276 Ammonia <9L f/u GGT and Abdominal US Hepatitis Panel - negative HIV negative Monitor PAULA Improving BUN/CR 15/1.0 On normal saline IV @75cc Monitor Dysphagia patient not tolerating solids bedside swallow evaluation Clear Liquid Diet History of Dementia Continue on home medication Aricept 10 mg po HS Prophylaxis VTE CI due to GI bleed GI: continue home medication Dexilant 30 mg po daily SCDs PT/OT evaluation <Zoila Ruby V - Last Filed: 04/14/17 01:02> Objective - Vital Signs/Intake and Output Vital Signs (last 24 hours): Temp Pulse Resp BP Pulse Ox 98.9 F 78 20 130/76 100 01/08/17 13:42 01/08/17 13:42 01/08/17 13:42 01/08/17 13:42 01/08/17 13:42 - Labs Labs: 01/08/17 07:16 01/08/17 07:16 PT 12.3 SECONDS (9.7-12.2) H 01/03/17 07:24 INR 1.1 01/03/17 07:24 APTT 30 SECONDS (21-34) 01/03/17 07:24 Attending/Attestation - Attestation I have personally seen and examined this patient.: Yes I have fully participated in the care of the patient.: Yes I have reviewed all pertinent clinical information, including history, physical exam and plan: Yes
--- NOTE | 2017-01-03 13:39 | CP.PCM.CON ---
<Graciela Gonzales - Last Filed: 01/03/17 13:50> History of Present Illness - History of Present Illness History of Present Illness: Gastroenterology Fellow/PGY4 Consult Note 76 year old female with history of Hypertension, Hyperlipidemia, Diabetes, TIA/ CVA, recurrent syncopal episodes and falls presenting after fall. Patient describes blackouts with falling nine times in the last month. She describes having blurry vision and funny feeling in her head followed by blacking out. She awoke on the floor with note of urine incontinence and food vomitus. Denies lightheadedness, dizziness, chest pain, shortness of breath, headache, nausea, vomiting, hematemesis, coffee ground emesis, abdominal pain, hematochezia, melena. One month ago, she notes resolution of dark stools and dysphagia to solids with associated 17 pound unintentional weight loss managed by her Social Psychologist, Dr. Holland.Endorsed incomplete colonoscopy 12/21/16 due to poor prep and EGD 12/31/16. She has a follow up appointment 01/16/17 to reschedule colonoscopy. [id number] cancer; denies colon cancer, stomach cancer Social-denies tobacco, alcohol, illicit drug use Surgery-ulna/radius reduction, tonsillectomy, mastoidectomy, B/L cataract removal Review of Systems - Review of Systems Review of Systems: a 12-point review of systems negative except for as above Past Patient History - Past Medical History & Family History Past Medical History?: Yes - Past Social History Smoking Status: Former Smoker - CARDIAC Hx Cardiac Disorders: Yes Hx Hypercholesterolemia: Yes Hx Hypertension: Yes - PULMONARY Hx Respiratory Disorders: Yes Hx Asthma: Yes Hx Sleep Apnea: Yes (C-PAP) Other/Comment: Claimed she does not use C-PAP anymore "I don't need it anymore" - NEUROLOGICAL Hx Neurological Disorder: Yes Hx Alzheimer's Disease: (MEMORY LOSS) Other/Comment: Claimed mind is clear now "I was given medication"my mind is clear now" - HEENT Hx HEENT Problems: Yes Hx Cataracts: Yes - RENAL Hx Chronic Kidney Disease: Yes Hx Kidney Stones: Yes (PASSED NO SURGERY) - ENDOCRINE/METABOLIC Hx Endocrine Disorders: Yes Hx Diabetes Mellitus Type 2: Yes - HEMATOLOGICAL/ONCOLOGICAL Hx Blood Disorders: Yes Hx Anemia: Yes - INTEGUMENTARY Hx Dermatological Problems: No - MUSCULOSKELETAL/RHEUMATOLOGICAL Hx Musculoskeletal Disorders: Yes Hx Arthritis: Yes Hx Falls: Yes Hx Fractures: Yes (RT ARM/L arm) - GASTROINTESTINAL Hx Gastritis: Yes - GENITOURINARY/GYNECOLOGICAL Hx Genitourinary Disorders: Yes (HX.STONES) Hx Bladder Stone: Yes - PSYCHIATRIC Hx Psychophysiologic Disorder: Yes Hx Depression: Yes Hx Substance Use: No - SURGICAL HISTORY Hx Surgeries: Yes Hx Orthopedic Surgery: Yes (Both arms -after the fall around 2 years ago) Hx Tonsillectomy: Yes - ANESTHESIA Hx Anesthesia: Yes Hx Anesthesia Reactions: No Hx Malignant Hyperthermia: No Has any member of the family had a problem w/ anesthesia?: No Meds Allergies/Adverse Reactions: Allergies Allergy/AdvReac Type Severity Reaction Status Date / Time No Known Allergies Allergy Verified 01/02/17 11:34 - Medications Medications: Current Medications Clopidogrel Bisulfate (Plavix) 75 mg PO DAILY [facility] Last Admin: 01/03/17 11:20 Dose: 75 mg Donepezil HCl (Aricept) 10 mg PO HS [facility] Last Admin: 01/02/17 22:08 Dose: 10 mg Escitalopram Oxalate (Lexapro) 20 mg PO DAILY [facility] Last Admin: 01/03/17 11:20 Dose: 20 mg Famotidine (Pepcid) 20 mg PO DAILY [facility] Last Admin: 01/03/17 11:20 Dose: 20 mg Sodium Chloride (Sodium Chloride 0.9%) 1,000 mls @ 75 mls/hr IV .[id number] [facility] Last Admin: 01/02/17 20:31 Dose: 75 mls/hr Ursodiol (Actigall) 300 mg PO BID [facility] Last Admin: 01/03/17 11:20 Dose: 300 mg Physical Exam - Constitutional Appears: Non-toxic, No Acute Distress - Head Exam Head Exam: ATRAUMATIC, NORMOCEPHALIC - Eye Exam Eye Exam: EOMI, PERRL Pupil Exam: PERRL. absent: Miosis, Mydriatic - ENT Exam ENT Exam: Mucous Membranes Moist, Normal Oropharynx - Neck Exam Neck exam: Positive for: Full Rom, Normal Inspection - Respiratory Exam Respiratory Exam: Clear to Auscultation Bilateral. absent: Rales, Rhonchi, Wheezes - Cardiovascular Exam Cardiovascular Exam: RRR, +S1, +S2. absent: Gallop, Rubs - GI/Abdominal Exam GI & Abdominal Exam: Normal Bowel Sounds, Soft. absent: Distended, Firm, Guarding, Organomegaly, Rebound, Rigid, Tenderness - Extremities Exam Extremities exam: Positive for: full ROM, normal inspection. Negative for: pedal edema - Neurological Exam Neurological exam: Alert, Oriented x3 - Psychiatric Exam Psychiatric exam: Normal Affect, Normal Mood - Skin Skin Exam: Dry, Intact, Normal Color, Warm Results - Vital Signs Recent Vital Signs: Last Vital Signs Temp 98.6 F 01/03/17 01:05 Pulse 69 01/03/17 01:30 Resp 18 01/03/17 01:05 BP 101/63 01/03/17 01:05 Pulse Ox 94 L 01/03/17 01:05 - Labs Result Diagrams: 01/03/17 07:24 01/03/17 07:24 Labs: Laboratory Results - last 24 hr 01/02/17 01/02/17 01/02/17 16:38 16:38 16:44 WBC RBC Hgb Hct MCV MCH MCHC RDW Plt Count MPV Neut % (Auto) Lymph % (Auto) Nicholas % (Auto) Eos % (Auto) Baso % (Auto) Neut # Lymph # Nicholas # Eos # Baso # Retic Count PT INR APTT Sodium Potassium Chloride Carbon Dioxide Anion Gap BUN Creatinine Est GFR ( Amer) Est GFR (Non-Af Amer) POC Glucose (mg/dL) Random Glucose Hemoglobin A1c Calcium Magnesium 2.0 Iron TIBC % Saturation Ferritin Total Bilirubin AST ALT Alkaline Phosphatase Ammonia Total Creatine Kinase CK-MB (Mass) Troponin I, Quant NT-Pro-B Natriuret Pep Total Protein Albumin Globulin Albumin/Globulin Ratio Triglycerides Cholesterol LDL Cholesterol Direct HDL Cholesterol Lipase Vitamin B12 Folate Prolactin 17.7 Urine Color Yellow Urine Clarity Clear Urine pH 6.0 Ur Specific Dawes 1.008 Urine Protein 1+ H Urine Glucose (UA) Normal Urine Ketones Negative Urine Blood Negative Urine Nitrate Negative Urine Bilirubin Negative Urine Urobilinogen Normal Ur Leukocyte Esterase Trace Urine WBC (Auto) 10 H Urine RBC (Auto) < 1 Ur Squamous Epith Cells 5 Urine Opiates Screen Negative Urine Methadone Screen Negative Ur Barbiturates Screen Negative Ur Phencyclidine Scrn Negative Ur Amphetamines Screen Negative U Benzodiazepines Scrn Negative U Oth Cocaine Metabols Negative U Cannabinoids Screen Negative RPR Hepatitis A IgM Ab Hep Bs Antigen Hep B Core IgM Ab Hepatitis C Antibody HIV 1&2 Antibody Screen 01/02/17 01/02/17 01/02/17 16:44 19:11 19:11 WBC RBC Hgb Hct MCV MCH MCHC RDW Plt Count MPV Neut % (Auto) Lymph % (Auto) Nicholas % (Auto) Eos % (Auto) Baso % (Auto) Neut # Lymph # Nicholas # Eos # Baso # Retic Count PT INR APTT Sodium Potassium Chloride Carbon Dioxide Anion Gap BUN Creatinine Est GFR ( Amer) Est GFR (Non-Af Amer) POC Glucose (mg/dL) Random Glucose Hemoglobin A1c Calcium Magnesium Iron 67 TIBC 308 % Saturation 22 Ferritin Total Bilirubin AST ALT Alkaline Phosphatase Ammonia < 9 L Total Creatine Kinase 49 CK-MB (Mass) 0.30 Troponin I, Quant < 0.0120 NT-Pro-B Natriuret Pep 105 Total Protein Albumin Globulin Albumin/Globulin Ratio Triglycerides 132 Cholesterol 146 LDL Cholesterol Direct 69 HDL Cholesterol 35 Lipase 118 Vitamin B12 Folate Prolactin Urine Color Urine Clarity Urine pH Ur Specific Dawes Urine Protein Urine Glucose (UA) Urine Ketones Urine Blood Urine Nitrate Urine Bilirubin Urine Urobilinogen Ur Leukocyte Esterase Urine WBC (Auto) Urine RBC (Auto) Ur Squamous Epith Cells Urine Opiates Screen Urine Methadone Screen Ur Barbiturates Screen Ur Phencyclidine Scrn Ur Amphetamines Screen U Benzodiazepines Scrn U Oth Cocaine Metabols U Cannabinoids Screen RPR Hepatitis A IgM Ab Hep Bs Antigen Hep B Core IgM Ab Hepatitis C Antibody HIV 1&2 Antibody Screen 01/02/17 01/02/17 01/02/17 19:11 19:11 19:11 WBC RBC Hgb Hct MCV MCH MCHC RDW Plt Count MPV Neut % (Auto) Lymph % (Auto) Nicholas % (Auto) Eos % (Auto) Baso % (Auto) Neut # Lymph # Nicholas # Eos # Baso # Retic Count PT INR APTT Sodium Potassium Chloride Carbon Dioxide Anion Gap BUN Creatinine Est GFR ( Amer) Est GFR (Non-Af Amer) POC Glucose (mg/dL) Random Glucose Hemoglobin A1c Calcium Magnesium Iron TIBC % Saturation Ferritin Total Bilirubin AST ALT Alkaline Phosphatase Ammonia Total Creatine Kinase CK-MB (Mass) Troponin I, Quant NT-Pro-B Natriuret Pep Total Protein Albumin Globulin Albumin/Globulin Ratio Triglycerides Cholesterol LDL Cholesterol Direct HDL Cholesterol Lipase Vitamin B12 Folate Prolactin Urine Color Urine Clarity Urine pH Ur Specific Dawes Urine Protein Urine Glucose (UA) Urine Ketones Urine Blood Urine Nitrate Urine Bilirubin Urine Urobilinogen Ur Leukocyte Esterase Urine WBC (Auto) Urine RBC (Auto) Ur Squamous Epith Cells Urine Opiates Screen Urine Methadone Screen Ur Barbiturates Screen Ur Phencyclidine Scrn Ur Amphetamines Screen U Benzodiazepines Scrn U Oth Cocaine Metabols U Cannabinoids Screen RPR Nonreactive Hepatitis A IgM Ab Negative Hep Bs Antigen Negative Hep B Core IgM Ab Negative Hepatitis C Antibody Negative HIV 1&2 Antibody Screen Negative 01/02/17 01/03/17 01/03/17 19:24 00:25 06:06 WBC RBC Hgb Hct MCV MCH MCHC RDW Plt Count MPV Neut % (Auto) Lymph % (Auto) Nicholas % (Auto) Eos % (Auto) Baso % (Auto) Neut # Lymph # Nicholas # Eos # Baso # Retic Count PT INR APTT Sodium Potassium Chloride Carbon Dioxide Anion Gap BUN Creatinine Est GFR ( Amer) Est GFR (Non-Af Amer) POC Glucose (mg/dL) 93 Random Glucose Hemoglobin A1c 6.1 Calcium Magnesium Iron TIBC % Saturation Ferritin Total Bilirubin AST ALT Alkaline Phosphatase Ammonia Total Creatine Kinase 35 CK-MB (Mass) < 0.22 Troponin I, Quant < 0.0120 NT-Pro-B Natriuret Pep Total Protein Albumin Globulin Albumin/Globulin Ratio Triglycerides Cholesterol LDL Cholesterol Direct HDL Cholesterol Lipase Vitamin B12 Folate Prolactin Urine Color Urine Clarity Urine pH Ur Specific Dawes Urine Protein Urine Glucose (UA) Urine Ketones Urine Blood Urine Nitrate Urine Bilirubin Urine Urobilinogen Ur Leukocyte Esterase Urine WBC (Auto) Urine RBC (Auto) Ur Squamous Epith Cells Urine Opiates Screen Urine Methadone Screen Ur Barbiturates Screen Ur Phencyclidine Scrn Ur Amphetamines Screen U Benzodiazepines Scrn U Oth Cocaine Metabols U Cannabinoids Screen RPR Hepatitis A IgM Ab Hep Bs Antigen Hep B Core IgM Ab Hepatitis C Antibody HIV 1&2 Antibody Screen 01/03/17 01/03/17 01/03/17 07:24 07:24 07:24 WBC 9.4 RBC 4.16 Hgb 10.4 L Hct 32.2 L MCV 77.4 L MCH 25.0 L MCHC 32.3 L RDW 16.5 H Plt Count 343 MPV 8.5 Neut % (Auto) 62.2 Lymph % (Auto) 25.7 Nicholas % (Auto) 9.7 Eos % (Auto) 1.9 Baso % (Auto) 0.5 Neut # 5.9 Lymph # 2.4 Nicholas # 0.9 H Eos # 0.2 Baso # 0.1 Retic Count PT 12.3 H INR 1.1 APTT 30 Sodium 139 Potassium 4.0 Chloride 98 Carbon Dioxide 30 Anion Gap 15 BUN 15 Creatinine 1.0 Est GFR ( Amer) > 60 Est GFR (Non-Af Amer) 54 POC Glucose (mg/dL) Random Glucose 91 Hemoglobin A1c Calcium 8.7 Magnesium 2.0 Iron TIBC % Saturation Ferritin 85.7 Total Bilirubin 0.7 AST 50 H D ALT 51 Alkaline Phosphatase 250 H Ammonia Total Creatine Kinase CK-MB (Mass) Troponin I, Quant NT-Pro-B Natriuret Pep Total Protein 6.9 Albumin 3.3 L Globulin 3.5 Albumin/Globulin Ratio 1.0 Triglycerides Cholesterol LDL Cholesterol Direct HDL Cholesterol Lipase Vitamin B12 419 Folate 9.3 Prolactin Urine Color Urine Clarity Urine pH Ur Specific Dawes Urine Protein Urine Glucose (UA) Urine Ketones Urine Blood Urine Nitrate Urine Bilirubin Urine Urobilinogen Ur Leukocyte Esterase Urine WBC (Auto) Urine RBC (Auto) Ur Squamous Epith Cells Urine Opiates Screen Urine Methadone Screen Ur Barbiturates Screen Ur Phencyclidine Scrn Ur Amphetamines Screen U Benzodiazepines Scrn U Oth Cocaine Metabols U Cannabinoids Screen RPR Hepatitis A IgM Ab Hep Bs Antigen Hep B Core IgM Ab Hepatitis C Antibody HIV 1&2 Antibody Screen 01/03/17 01/03/17 01/03/17 07:24 07:24 11:51 WBC RBC Hgb Hct MCV MCH MCHC RDW Plt Count MPV Neut % (Auto) Lymph % (Auto) Nicholas % (Auto) Eos % (Auto) Baso % (Auto) Neut # Lymph # Nicholas # Eos # Baso # Retic Count 1.3 PT INR APTT Sodium Potassium Chloride Carbon Dioxide Anion Gap BUN Creatinine Est GFR ( Amer) Est GFR (Non-Af Amer) POC Glucose (mg/dL) 91 Random Glucose Hemoglobin A1c Calcium Magnesium Iron TIBC 285 % Saturation 12 L Ferritin Total Bilirubin AST ALT Alkaline Phosphatase Ammonia Total Creatine Kinase CK-MB (Mass) Troponin I, Quant NT-Pro-B Natriuret Pep Total Protein Albumin Globulin Albumin/Globulin Ratio Triglycerides Cholesterol LDL Cholesterol Direct HDL Cholesterol Lipase Vitamin B12 Folate Prolactin Urine Color Urine Clarity Urine pH Ur Specific Dawes Urine Protein Urine Glucose (UA) Urine Ketones Urine Blood Urine Nitrate Urine Bilirubin Urine Urobilinogen Ur Leukocyte Esterase Urine WBC (Auto) Urine RBC (Auto) Ur Squamous Epith Cells Urine Opiates Screen Urine Methadone Screen Ur Barbiturates Screen Ur Phencyclidine Scrn Ur Amphetamines Screen U Benzodiazepines Scrn U Oth Cocaine Metabols U Cannabinoids Screen RPR Hepatitis A IgM Ab Hep Bs Antigen Hep B Core IgM Ab Hepatitis C Antibody HIV 1&2 Antibody Screen Assessment & Plan - Assessment and Plan (Free Text) Assessment: 76 year old female with history of Hypertension, Hyperlipidemia, Diabetes, TIA/ CVA, recurrent syncopal episodes and falls presenting after fall. GI consultation for GI bleed and microcytic anemia. Endorsed incomplete colonoscopy 12/21/16 due to poor prep and EGD 12/31/16. She has a follow up appointment 01/16/17 to reschedule colonoscopy. Plan: >one month ago-dark stools, dysphagia to solids,17 pound unintentional weight loss -outpatient EGD/colonoscopy 12/2016 >managed by her Social Psychologist, Dr. Holland >no present dysphagia or dark stools >H/H stable >continue PPI >neurology managing syncope >no signs of cirrhosis- normal Platelets, albumin, INR >likely history of steatosis >LFTs improving- in setting of syncope, hypotension, rib fracture >pending Ultrasound, GGT >keep established follow up appointment 01/16/17 with established Social Psychologist, Dr. Holland to reschedule colonoscopy and further care <[facility] - Last Filed: 01/03/17 15:25> Meds - Medications Medications: Current Medications Clopidogrel Bisulfate (Plavix) 75 mg PO DAILY [facility] Last Admin: 01/03/17 11:20 Dose: 75 mg Donepezil HCl (Aricept) 10 mg PO HS [facility] Last Admin: 01/02/17 22:08 Dose: 10 mg Escitalopram Oxalate (Lexapro) 20 mg PO DAILY [facility] Last Admin: 01/03/17 11:20 Dose: 20 mg Famotidine (Pepcid) 20 mg PO DAILY [facility] Last Admin: 01/03/17 11:20 Dose: 20 mg Sodium Chloride (Sodium Chloride 0.9%) 1,000 mls @ 75 mls/hr IV .[id number] [facility] Last Admin: 01/02/17 20:31 Dose: 75 mls/hr Ursodiol (Actigall) 300 mg PO BID [facility] Last Admin: 01/03/17 11:20 Dose: 300 mg Results - Vital Signs Recent Vital Signs: Last Vital Signs Temp 98.6 F 01/03/17 01:05 Pulse 69 01/03/17 01:30 Resp 18 01/03/17 01:05 BP 101/63 01/03/17 01:05 Pulse Ox 94 L 01/03/17 01:05 - Labs Result Diagrams: 01/03/17 07:24 01/03/17 07:24 Labs: Laboratory Results - last 24 hr 01/02/17 01/02/17 01/02/17 16:38 16:38 16:44 WBC RBC Hgb Hct MCV MCH MCHC RDW Plt Count MPV Neut % (Auto) Lymph % (Auto) Nicholas % (Auto) Eos % (Auto) Baso % (Auto) Neut # Lymph # Nicholas # Eos # Baso # Retic Count PT INR APTT Sodium Potassium Chloride Carbon Dioxide Anion Gap BUN Creatinine Est GFR ( Amer) Est GFR (Non-Af Amer) POC Glucose (mg/dL) Random Glucose Hemoglobin A1c Calcium Magnesium 2.0 Iron TIBC % Saturation Ferritin Total Bilirubin AST ALT Alkaline Phosphatase Ammonia Total Creatine Kinase CK-MB (Mass) Troponin I, Quant NT-Pro-B Natriuret Pep Total Protein Albumin Globulin Albumin/Globulin Ratio Triglycerides Cholesterol LDL Cholesterol Direct HDL Cholesterol Lipase Vitamin B12 Folate Prolactin 17.7 Urine Color Yellow Urine Clarity Clear Urine pH 6.0 Ur Specific Dawes 1.008 Urine Protein 1+ H Urine Glucose (UA) Normal Urine Ketones Negative Urine Blood Negative Urine Nitrate Negative Urine Bilirubin Negative Urine Urobilinogen Normal Ur Leukocyte Esterase Trace Urine WBC (Auto) 10 H Urine RBC (Auto) < 1 Ur Squamous Epith Cells 5 Urine Opiates Screen Negative Urine Methadone Screen Negative Ur Barbiturates Screen Negative Ur Phencyclidine Scrn Negative Ur Amphetamines Screen Negative U Benzodiazepines Scrn Negative U Oth Cocaine Metabols Negative U Cannabinoids Screen Negative RPR Hepatitis A IgM Ab Hep Bs Antigen Hep B Core IgM Ab Hepatitis C Antibody HIV 1&2 Antibody Screen 01/02/17 01/02/17 01/02/17 16:44 19:11 19:11 WBC RBC Hgb Hct MCV MCH MCHC RDW Plt Count MPV Neut % (Auto) Lymph % (Auto) Nicholas % (Auto) Eos % (Auto) Baso % (Auto) Neut # Lymph # Nicholas # Eos # Baso # Retic Count PT INR APTT Sodium Potassium Chloride Carbon Dioxide Anion Gap BUN Creatinine Est GFR ( Amer) Est GFR (Non-Af Amer) POC Glucose (mg/dL) Random Glucose Hemoglobin A1c Calcium Magnesium Iron 67 TIBC 308 % Saturation 22 Ferritin Total Bilirubin AST ALT Alkaline Phosphatase Ammonia < 9 L Total Creatine Kinase 49 CK-MB (Mass) 0.30 Troponin I, Quant < 0.0120 NT-Pro-B Natriuret Pep 105 Total Protein Albumin Globulin Albumin/Globulin Ratio Triglycerides 132 Cholesterol 146 LDL Cholesterol Direct 69 HDL Cholesterol 35 Lipase 118 Vitamin B12 Folate Prolactin Urine Color Urine Clarity Urine pH Ur Specific Dawes Urine Protein Urine Glucose (UA) Urine Ketones Urine Blood Urine Nitrate Urine Bilirubin Urine Urobilinogen Ur Leukocyte Esterase Urine WBC (Auto) Urine RBC (Auto) Ur Squamous Epith Cells Urine Opiates Screen Urine Methadone Screen Ur Barbiturates Screen Ur Phencyclidine Scrn Ur Amphetamines Screen U Benzodiazepines Scrn U Oth Cocaine Metabols U Cannabinoids Screen RPR Hepatitis A IgM Ab Hep Bs Antigen Hep B Core IgM Ab Hepatitis C Antibody HIV 1&2 Antibody Screen 01/02/17 01/02/17 01/02/17 19:11 19:11 19:11 WBC RBC Hgb Hct MCV MCH MCHC RDW Plt Count MPV Neut % (Auto) Lymph % (Auto) Nicholas % (Auto) Eos % (Auto) Baso % (Auto) Neut # Lymph # Nicholas # Eos # Baso # Retic Count PT INR APTT Sodium Potassium Chloride Carbon Dioxide Anion Gap BUN Creatinine Est GFR ( Amer) Est GFR (Non-Af Amer) POC Glucose (mg/dL) Random Glucose Hemoglobin A1c Calcium Magnesium Iron TIBC % Saturation Ferritin Total Bilirubin AST ALT Alkaline Phosphatase Ammonia Total Creatine Kinase CK-MB (Mass) Troponin I, Quant NT-Pro-B Natriuret Pep Total Protein Albumin Globulin Albumin/Globulin Ratio Triglycerides Cholesterol LDL Cholesterol Direct HDL Cholesterol Lipase Vitamin B12 Folate Prolactin Urine Color Urine Clarity Urine pH Ur Specific Dawes Urine Protein Urine Glucose (UA) Urine Ketones Urine Blood Urine Nitrate Urine Bilirubin Urine Urobilinogen Ur Leukocyte Esterase Urine WBC (Auto) Urine RBC (Auto) Ur Squamous Epith Cells Urine Opiates Screen Urine Methadone Screen Ur Barbiturates Screen Ur Phencyclidine Scrn Ur Amphetamines Screen U Benzodiazepines Scrn U Oth Cocaine Metabols U Cannabinoids Screen RPR Nonreactive Hepatitis A IgM Ab Negative Hep Bs Antigen Negative Hep B Core IgM Ab Negative Hepatitis C Antibody Negative HIV 1&2 Antibody Screen Negative 01/02/17 01/03/17 01/03/17 19:24 00:25 06:06 WBC RBC Hgb Hct MCV MCH MCHC RDW Plt Count MPV Neut % (Auto) Lymph % (Auto) Nicholas % (Auto) Eos % (Auto) Baso % (Auto) Neut # Lymph # Nicholas # Eos # Baso # Retic Count PT INR APTT Sodium Potassium Chloride Carbon Dioxide Anion Gap BUN Creatinine Est GFR ( Amer) Est GFR (Non-Af Amer) POC Glucose (mg/dL) 93 Random Glucose Hemoglobin A1c 6.1 Calcium Magnesium Iron TIBC % Saturation Ferritin Total Bilirubin AST ALT Alkaline Phosphatase Ammonia Total Creatine Kinase 35 CK-MB (Mass) < 0.22 Troponin I, Quant < 0.0120 NT-Pro-B Natriuret Pep Total Protein Albumin Globulin Albumin/Globulin Ratio Triglycerides Cholesterol LDL Cholesterol Direct HDL Cholesterol Lipase Vitamin B12 Folate Prolactin Urine Color Urine Clarity Urine pH Ur Specific Dawes Urine Protein Urine Glucose (UA) Urine Ketones Urine Blood Urine Nitrate Urine Bilirubin Urine Urobilinogen Ur Leukocyte Esterase Urine WBC (Auto) Urine RBC (Auto) Ur Squamous Epith Cells Urine Opiates Screen Urine Methadone Screen Ur Barbiturates Screen Ur Phencyclidine Scrn Ur Amphetamines Screen U Benzodiazepines Scrn U Oth Cocaine Metabols U Cannabinoids Screen RPR Hepatitis A IgM Ab Hep Bs Antigen Hep B Core IgM Ab Hepatitis C Antibody HIV 1&2 Antibody Screen 01/03/17 01/03/17 01/03/17 07:24 07:24 07:24 WBC 9.4 RBC 4.16 Hgb 10.4 L Hct 32.2 L MCV 77.4 L MCH 25.0 L MCHC 32.3 L RDW 16.5 H Plt Count 343 MPV 8.5 Neut % (Auto) 62.2 Lymph % (Auto) 25.7 Nicholas % (Auto) 9.7 Eos % (Auto) 1.9 Baso % (Auto) 0.5 Neut # 5.9 Lymph # 2.4 Nicholas # 0.9 H Eos # 0.2 Baso # 0.1 Retic Count PT 12.3 H INR 1.1 APTT 30 Sodium 139 Potassium 4.0 Chloride 98 Carbon Dioxide 30 Anion Gap 15 BUN 15 Creatinine 1.0 Est GFR ( Amer) > 60 Est GFR (Non-Af Amer) 54 POC Glucose (mg/dL) Random Glucose 91 Hemoglobin A1c Calcium 8.7 Magnesium 2.0 Iron TIBC % Saturation Ferritin 85.7 Total Bilirubin 0.7 AST 50 H D ALT 51 Alkaline Phosphatase 250 H Ammonia Total Creatine Kinase CK-MB (Mass) Troponin I, Quant NT-Pro-B Natriuret Pep Total Protein 6.9 Albumin 3.3 L Globulin 3.5 Albumin/Globulin Ratio 1.0 Triglycerides Cholesterol LDL Cholesterol Direct HDL Cholesterol Lipase Vitamin B12 419 Folate 9.3 Prolactin Urine Color Urine Clarity Urine pH Ur Specific Dawes Urine Protein Urine Glucose (UA) Urine Ketones Urine Blood Urine Nitrate Urine Bilirubin Urine Urobilinogen Ur Leukocyte Esterase Urine WBC (Auto) Urine RBC (Auto) Ur Squamous Epith Cells Urine Opiates Screen Urine Methadone Screen Ur Barbiturates Screen Ur Phencyclidine Scrn Ur Amphetamines Screen U Benzodiazepines Scrn U Oth Cocaine Metabols U Cannabinoids Screen RPR Hepatitis A IgM Ab Hep Bs Antigen Hep B Core IgM Ab Hepatitis C Antibody HIV 1&2 Antibody Screen 01/03/17 01/03/17 01/03/17 07:24 07:24 11:51 WBC RBC Hgb Hct MCV MCH MCHC RDW Plt Count MPV Neut % (Auto) Lymph % (Auto) Nicholas % (Auto) Eos % (Auto) Baso % (Auto) Neut # Lymph # Nicholas # Eos # Baso # Retic Count 1.3 PT INR APTT Sodium Potassium Chloride Carbon Dioxide Anion Gap BUN Creatinine Est GFR ( Amer) Est GFR (Non-Af Amer) POC Glucose (mg/dL) 91 Random Glucose Hemoglobin A1c Calcium Magnesium Iron TIBC 285 % Saturation 12 L Ferritin Total Bilirubin AST ALT Alkaline Phosphatase Ammonia Total Creatine Kinase CK-MB (Mass) Troponin I, Quant NT-Pro-B Natriuret Pep Total Protein Albumin Globulin Albumin/Globulin Ratio Triglycerides Cholesterol LDL Cholesterol Direct HDL Cholesterol Lipase Vitamin B12 Folate Prolactin Urine Color Urine Clarity Urine pH Ur Specific Dawes Urine Protein Urine Glucose (UA) Urine Ketones Urine Blood Urine Nitrate Urine Bilirubin Urine Urobilinogen Ur Leukocyte Esterase Urine WBC (Auto) Urine RBC (Auto) Ur Squamous Epith Cells Urine Opiates Screen Urine Methadone Screen Ur Barbiturates Screen Ur Phencyclidine Scrn Ur Amphetamines Screen U Benzodiazepines Scrn U Oth Cocaine Metabols U Cannabinoids Screen RPR Hepatitis A IgM Ab Hep Bs Antigen Hep B Core IgM Ab Hepatitis C Antibody HIV 1&2 Antibody Screen Attending/Attestation - Attestation I have personally seen and examined this patient.: Yes I have fully participated in the care of the patient.: Yes I have reviewed all pertinent clinical information: Yes Notes (Text): 01/03/17 15:17 Patient seen and examined at bedside with GI fellow. This is a 76 year old female with history of Hypertension, Hyperlipidemia, Diabetes, TIA/CVA, with recurrent falls admitted with microcytic anemia with recent EGD/ colonoscopy in December with outside GI. No overt GI bleeding. Can follow with outside physician as scheduled on 01/16. Continue PPI. Neurology and cardiology work up as primary team
--- NOTE | 2017-01-03 14:27 | CP.PCM.CON ---
History of Present Illness - History of Present Illness History of Present Illness: 76F complains of right sided rib/chest wall pain after falling yesterday. She complains of severe pain with coughing. She says that she has "passed out" 6 times in the last month, last time with loss of bowel and bladder. She also admits to pain on the outside of her left thigh after she woke up. She denies any pain on the right leg, and no pain on either arm. Denies numbness/tingling. Denies any shortness of breath, cough, or sputum. Denies any shoulder pain. Denies numbness/tingling. Denies pain with ambulation. Denies bruising or discoloration. Review of Systems - Review of Systems All systems: reviewed and no additional remarkable complaints except - Constitutional Constitutional: Weight Loss - Respiratory Respiratory: As Per HPI - Gastrointestinal Additional comments: denies n/v - Musculoskeletal Musculoskeletal: As Per HPI - Integumentary Integumentary: As Per HPI - Hematologic/Lymphatic Hematologic: absent: As Per HPI, Easy Bleeding, Easy Bruising, Lymphadenopathy, Other Past Patient History - Past Medical History & Family History Past Medical History?: Yes Past Family History: Reviewed and not pertinent - Past Social History Smoking Status: Former Smoker - CARDIAC Hx Cardiac Disorders: Yes Hx Hypercholesterolemia: Yes Hx Hypertension: Yes - PULMONARY Hx Respiratory Disorders: Yes Hx Asthma: Yes Hx Sleep Apnea: Yes (C-PAP) Other/Comment: Claimed she does not use C-PAP anymore "I don't need it anymore" - NEUROLOGICAL Hx Neurological Disorder: Yes Hx Alzheimer's Disease: (MEMORY LOSS) Other/Comment: Claimed mind is clear now "I was given medication"my mind is clear now" - HEENT Hx HEENT Problems: Yes Hx Cataracts: Yes - RENAL Hx Chronic Kidney Disease: Yes Hx Kidney Stones: Yes (PASSED NO SURGERY) - ENDOCRINE/METABOLIC Hx Endocrine Disorders: Yes Hx Diabetes Mellitus Type 2: Yes - HEMATOLOGICAL/ONCOLOGICAL Hx Blood Disorders: Yes Hx Anemia: Yes - INTEGUMENTARY Hx Dermatological Problems: No - MUSCULOSKELETAL/RHEUMATOLOGICAL Hx Musculoskeletal Disorders: Yes Hx Arthritis: Yes Hx Falls: Yes Hx Fractures: Yes (RT ARM/L arm) - GASTROINTESTINAL Hx Gastritis: Yes - GENITOURINARY/GYNECOLOGICAL Hx Genitourinary Disorders: Yes (HX.STONES) Hx Bladder Stone: Yes - PSYCHIATRIC Hx Psychophysiologic Disorder: Yes Hx Depression: Yes Hx Substance Use: No - SURGICAL HISTORY Hx Surgeries: Yes Hx Orthopedic Surgery: Yes (Both arms -after the fall around 2 years ago) Hx Tonsillectomy: Yes - ANESTHESIA Hx Anesthesia: Yes Hx Anesthesia Reactions: No Hx Malignant Hyperthermia: No Has any member of the family had a problem w/ anesthesia?: No Meds Allergies/Adverse Reactions: Allergies Allergy/AdvReac Type Severity Reaction Status Date / Time No Known Allergies Allergy Verified 01/02/17 11:34 - Medications Medications: Current Medications Clopidogrel Bisulfate (Plavix) 75 mg PO DAILY [facility] Last Admin: 01/03/17 11:20 Dose: 75 mg Donepezil HCl (Aricept) 10 mg PO HS [facility] Last Admin: 01/02/17 22:08 Dose: 10 mg Escitalopram Oxalate (Lexapro) 20 mg PO DAILY [facility] Last Admin: 01/03/17 11:20 Dose: 20 mg Famotidine (Pepcid) 20 mg PO DAILY [facility] Last Admin: 01/03/17 11:20 Dose: 20 mg Sodium Chloride (Sodium Chloride 0.9%) 1,000 mls @ 75 mls/hr IV .[id number] [facility] Last Admin: 01/02/17 20:31 Dose: 75 mls/hr Ursodiol (Actigall) 300 mg PO BID [facility] Last Admin: 01/03/17 11:20 Dose: 300 mg Physical Exam - Constitutional Appears: Well, No Acute Distress - Head Exam Head Exam: ATRAUMATIC - ENT Exam ENT Exam: Mucous Membranes Moist - Respiratory Exam Respiratory Exam: NORMAL BREATHING PATTERN Additional comments: TTP to anterior right lower ribs, continues laterally no swelling/discoloration noted no tenderness to left side of ribs no sternal tenderness no thoracic spine tenderness - Extremities Exam Additional comments: LLE: +DP/PT pulses minimal tenderness to mid lateral thigh Full ROM hip actively without pain calves sfot NT neg homans sensation intact no swelling/deformity/discoloration BUE/RLE: no swelling/deformity/discoloration full active ROM without pain NVID sensation intact +radial pulse - Expanded Lower Extremities Exam Left Hip exam: full ROM, tenderness, normal inspection Knee exam: full ROM, normal inspection Ankle exam: FULL ROM, NORMAL INSPECTION Neuro vacular tendon exam: no vascular compromise - Neurological Exam Neurological exam: Alert, Oriented x3 - Psychiatric Exam Psychiatric exam: Normal Affect, Normal Mood - Skin Skin Exam: Dry, Intact, Normal Color, Warm Results - Vital Signs Recent Vital Signs: Last Vital Signs Temp 98.6 F 01/03/17 01:05 Pulse 69 01/03/17 01:30 Resp 18 01/03/17 01:05 BP 101/63 01/03/17 01:05 Pulse Ox 94 L 01/03/17 01:05 - Labs Result Diagrams: 01/03/17 07:24 01/03/17 07:24 Labs: Laboratory Results - last 24 hr 01/02/17 01/02/17 01/02/17 16:38 16:38 16:44 WBC RBC Hgb Hct MCV MCH MCHC RDW Plt Count MPV Neut % (Auto) Lymph % (Auto) [place] % (Auto) Eos % (Auto) Baso % (Auto) Neut # Lymph # Noble # Eos # Baso # Retic Count PT INR APTT Sodium Potassium Chloride Carbon Dioxide Anion Gap BUN Creatinine Est GFR ( Amer) Est GFR (Non-Af Amer) POC Glucose (mg/dL) Random Glucose Hemoglobin A1c Calcium Magnesium 2.0 Iron TIBC % Saturation Ferritin Total Bilirubin AST ALT Alkaline Phosphatase Ammonia Total Creatine Kinase CK-MB (Mass) Troponin I, Quant NT-Pro-B Natriuret Pep Total Protein Albumin Globulin Albumin/Globulin Ratio Triglycerides Cholesterol LDL Cholesterol Direct HDL Cholesterol Lipase Vitamin B12 Folate Prolactin 17.7 Urine Color Yellow Urine Clarity Clear Urine pH 6.0 Ur Specific [place] 1.008 Urine Protein 1+ H Urine Glucose (UA) Normal Urine Ketones Negative Urine Blood Negative Urine Nitrate Negative Urine Bilirubin Negative Urine Urobilinogen Normal Ur Leukocyte Esterase Trace Urine WBC (Auto) 10 H Urine RBC (Auto) < 1 Ur Squamous Epith Cells 5 Urine Opiates Screen Negative Urine Methadone Screen Negative Ur Barbiturates Screen Negative Ur Phencyclidine Scrn Negative Ur Amphetamines Screen Negative U Benzodiazepines Scrn Negative U Oth Cocaine Metabols Negative U Cannabinoids Screen Negative RPR Hepatitis A IgM Ab Hep Bs Antigen Hep B Core IgM Ab Hepatitis C Antibody HIV 1&2 Antibody Screen 01/02/17 01/02/17 01/02/17 16:44 19:11 19:11 WBC RBC Hgb Hct MCV MCH MCHC RDW Plt Count MPV Neut % (Auto) Lymph % (Auto) Noble % (Auto) Eos % (Auto) Baso % (Auto) Neut # Lymph # Noble # Eos # Baso # Retic Count PT INR APTT Sodium Potassium Chloride Carbon Dioxide Anion Gap BUN Creatinine Est GFR ( Amer) Est GFR (Non-Af Amer) POC Glucose (mg/dL) Random Glucose Hemoglobin A1c Calcium Magnesium Iron 67 TIBC 308 % Saturation 22 Ferritin Total Bilirubin AST ALT Alkaline Phosphatase Ammonia < 9 L Total Creatine Kinase 49 CK-MB (Mass) 0.30 Troponin I, Quant < 0.0120 NT-Pro-B Natriuret Pep 105 Total Protein Albumin Globulin Albumin/Globulin Ratio Triglycerides 132 Cholesterol 146 LDL Cholesterol Direct 69 HDL Cholesterol 35 Lipase 118 Vitamin B12 Folate Prolactin Urine Color Urine Clarity Urine pH Ur Specific [place] Urine Protein Urine Glucose (UA) Urine Ketones Urine Blood Urine Nitrate Urine Bilirubin Urine Urobilinogen Ur Leukocyte Esterase Urine WBC (Auto) Urine RBC (Auto) Ur Squamous Epith Cells Urine Opiates Screen Urine Methadone Screen Ur Barbiturates Screen Ur Phencyclidine Scrn Ur Amphetamines Screen U Benzodiazepines Scrn U Oth Cocaine Metabols U Cannabinoids Screen RPR Hepatitis A IgM Ab Hep Bs Antigen Hep B Core IgM Ab Hepatitis C Antibody HIV 1&2 Antibody Screen 01/02/17 01/02/17 01/02/17 19:11 19:11 19:11 WBC RBC Hgb Hct MCV MCH MCHC RDW Plt Count MPV Neut % (Auto) Lymph % (Auto) Noble % (Auto) Eos % (Auto) Baso % (Auto) Neut # Lymph # [place] # Eos # Baso # Retic Count PT INR APTT Sodium Potassium Chloride Carbon Dioxide Anion Gap BUN Creatinine Est GFR ( Amer) Est GFR (Non-Af Amer) POC Glucose (mg/dL) Random Glucose Hemoglobin A1c Calcium Magnesium Iron TIBC % Saturation Ferritin Total Bilirubin AST ALT Alkaline Phosphatase Ammonia Total Creatine Kinase CK-MB (Mass) Troponin I, Quant NT-Pro-B Natriuret Pep Total Protein Albumin Globulin Albumin/Globulin Ratio Triglycerides Cholesterol LDL Cholesterol Direct HDL Cholesterol Lipase Vitamin B12 Folate Prolactin Urine Color Urine Clarity Urine pH Ur Specific [place] Urine Protein Urine Glucose (UA) Urine Ketones Urine Blood Urine Nitrate Urine Bilirubin Urine Urobilinogen Ur Leukocyte Esterase Urine WBC (Auto) Urine RBC (Auto) Ur Squamous Epith Cells Urine Opiates Screen Urine Methadone Screen Ur Barbiturates Screen Ur Phencyclidine Scrn Ur Amphetamines Screen U Benzodiazepines Scrn U Oth Cocaine Metabols U Cannabinoids Screen RPR Nonreactive Hepatitis A IgM Ab Negative Hep Bs Antigen Negative Hep B Core IgM Ab Negative Hepatitis C Antibody Negative HIV 1&2 Antibody Screen Negative 01/02/17 01/03/17 01/03/17 19:24 00:25 06:06 WBC RBC Hgb Hct MCV MCH MCHC RDW Plt Count MPV Neut % (Auto) Lymph % (Auto) [place] % (Auto) Eos % (Auto) Baso % (Auto) Neut # Lymph # [place] # Eos # Baso # Retic Count PT INR APTT Sodium Potassium Chloride Carbon Dioxide Anion Gap BUN Creatinine Est GFR ( Amer) Est GFR (Non-Af Amer) POC Glucose (mg/dL) 93 Random Glucose Hemoglobin A1c 6.1 Calcium Magnesium Iron TIBC % Saturation Ferritin Total Bilirubin AST ALT Alkaline Phosphatase Ammonia Total Creatine Kinase 35 CK-MB (Mass) < 0.22 Troponin I, Quant < 0.0120 NT-Pro-B Natriuret Pep Total Protein Albumin Globulin Albumin/Globulin Ratio Triglycerides Cholesterol LDL Cholesterol Direct HDL Cholesterol Lipase Vitamin B12 Folate Prolactin Urine Color Urine Clarity Urine pH Ur Specific [place] Urine Protein Urine Glucose (UA) Urine Ketones Urine Blood Urine Nitrate Urine Bilirubin Urine Urobilinogen Ur Leukocyte Esterase Urine WBC (Auto) Urine RBC (Auto) Ur Squamous Epith Cells Urine Opiates Screen Urine Methadone Screen Ur Barbiturates Screen Ur Phencyclidine Scrn Ur Amphetamines Screen U Benzodiazepines Scrn U Oth Cocaine Metabols U Cannabinoids Screen RPR Hepatitis A IgM Ab Hep Bs Antigen Hep B Core IgM Ab Hepatitis C Antibody HIV 1&2 Antibody Screen 01/03/17 01/03/17 01/03/17 07:24 07:24 07:24 WBC 9.4 RBC 4.16 Hgb 10.4 L Hct 32.2 L MCV 77.4 L MCH 25.0 L MCHC 32.3 L RDW 16.5 H Plt Count 343 MPV 8.5 Neut % (Auto) 62.2 Lymph % (Auto) 25.7 Noble % (Auto) 9.7 Eos % (Auto) 1.9 Baso % (Auto) 0.5 Neut # 5.9 Lymph # 2.4 Noble # 0.9 H Eos # 0.2 Baso # 0.1 Retic Count PT 12.3 H INR 1.1 APTT 30 Sodium 139 Potassium 4.0 Chloride 98 Carbon Dioxide 30 Anion Gap 15 BUN 15 Creatinine 1.0 Est GFR ( Amer) > 60 Est GFR (Non-Af Amer) 54 POC Glucose (mg/dL) Random Glucose 91 Hemoglobin A1c Calcium 8.7 Magnesium 2.0 Iron TIBC % Saturation Ferritin 85.7 Total Bilirubin 0.7 AST 50 H D ALT 51 Alkaline Phosphatase 250 H Ammonia Total Creatine Kinase CK-MB (Mass) Troponin I, Quant NT-Pro-B Natriuret Pep Total Protein 6.9 Albumin 3.3 L Globulin 3.5 Albumin/Globulin Ratio 1.0 Triglycerides Cholesterol LDL Cholesterol Direct HDL Cholesterol Lipase Vitamin B12 419 Folate 9.3 Prolactin Urine Color Urine Clarity Urine pH Ur Specific [place] Urine Protein Urine Glucose (UA) Urine Ketones Urine Blood Urine Nitrate Urine Bilirubin Urine Urobilinogen Ur Leukocyte Esterase Urine WBC (Auto) Urine RBC (Auto) Ur Squamous Epith Cells Urine Opiates Screen Urine Methadone Screen Ur Barbiturates Screen Ur Phencyclidine Scrn Ur Amphetamines Screen U Benzodiazepines Scrn U Oth Cocaine Metabols U Cannabinoids Screen RPR Hepatitis A IgM Ab Hep Bs Antigen Hep B Core IgM Ab Hepatitis C Antibody HIV 1&2 Antibody Screen 01/03/17 01/03/17 01/03/17 07:24 07:24 11:51 WBC RBC Hgb Hct MCV MCH MCHC RDW Plt Count MPV Neut % (Auto) Lymph % (Auto) [place] % (Auto) Eos % (Auto) Baso % (Auto) Neut # Lymph # [place] # Eos # Baso # Retic Count 1.3 PT INR APTT Sodium Potassium Chloride Carbon Dioxide Anion Gap BUN Creatinine Est GFR ( Amer) Est GFR (Non-Af Amer) POC Glucose (mg/dL) 91 Random Glucose Hemoglobin A1c Calcium Magnesium Iron TIBC 285 % Saturation 12 L Ferritin Total Bilirubin AST ALT Alkaline Phosphatase Ammonia Total Creatine Kinase CK-MB (Mass) Troponin I, Quant NT-Pro-B Natriuret Pep Total Protein Albumin Globulin Albumin/Globulin Ratio Triglycerides Cholesterol LDL Cholesterol Direct HDL Cholesterol Lipase Vitamin B12 Folate Prolactin Urine Color Urine Clarity Urine pH Ur Specific [place] Urine Protein Urine Glucose (UA) Urine Ketones Urine Blood Urine Nitrate Urine Bilirubin Urine Urobilinogen Ur Leukocyte Esterase Urine WBC (Auto) Urine RBC (Auto) Ur Squamous Epith Cells Urine Opiates Screen Urine Methadone Screen Ur Barbiturates Screen Ur Phencyclidine Scrn Ur Amphetamines Screen U Benzodiazepines Scrn U Oth Cocaine Metabols U Cannabinoids Screen RPR Hepatitis A IgM Ab Hep Bs Antigen Hep B Core IgM Ab Hepatitis C Antibody HIV 1&2 Antibody Screen - Impressions Impression: atient Name / ID : SERENA RICHMOND / [id number] Exam Date : 01/02/2017 16:13:35 ( Approved ) Study Comment : Sex / Age : F Y Creator : Naty Reagan MD Dictator : Naty Reagan MD Junior Accounting Clerk : Material Handling Technician : Naty Reagan MD Approver2 : Report Date : 01/02/2017 16:46:55 My Comment : Indication: s/p fall, hip pain Bilateral hips with pelvis Comparison: Pelvis radiograph performed 03/26/14 Findings: Degenerative changes of the lower lumbar spine. Osseous demineralization limits evaluation for acute fracture lines. Bilateral joint space narrowing of the hip joints. No acute displaced fracture or dislocation identified. Sacroiliac joints appear intact. Mild constipation. Soft tissues appear unremarkable. No evidence of radiopaque foreign body. Pelvic calcifications, likely phleboliths. Impression: Osseous demineralization. Degenerative changes. No acute displaced fracture or dislocation evident. If high clinical index of suspicion, suggest cross-sectional imaging for further evaluation. Otherwise, if symptoms persist or if there is continued clinical concern, x-ray follow-up in 7-10 days should be considered. Patient Name / ID : SERENA RICHMOND / [id number] Exam Date : 01/02/2017 12:45:53 ( Approved ) Study Comment : Sex / Age : F Y Creator : Naty Reagan MD Dictator : Naty Reagan MD Junior Accounting Clerk : Material Handling Technician : Naty Reagan MD Approver2 : Report Date : 01/02/2017 13:08:44 My Comment : HISTORY: chest pain COMPARISON: Chest x-ray performed 04/10/14 TECHNIQUE: Chest PA and lateral FINDINGS: Examination limited by habitus. LUNGS: Mild biapical pleural thickening. Mild bilateral lateral pleural thickening. No focal consolidation. Chronic appearing interstitial markings. Please note that chest x-ray has limited sensitivity for the detection of pulmonary masses. PLEURA: No significant pleural effusion identified. No definite pneumothorax . CARDIOVASCULAR: Heart size appears top normal. Atherosclerotic calcifications. OSSEOUS STRUCTURES: Mildly displaced right lateral 11th rib fracture. Osseous demineralization. Degenerative changes of the spine and shoulders. Acromioclavicular arthropathy. VISUALIZED UPPER ABDOMEN: Unremarkable. OTHER FINDINGS: None. IMPRESSION: Mildly displaced right lateral 11th rib fracture, appears acute. Correlate clinically. Additional findings as above. Assessment & Plan (1) Fracture of rib of right side Assessment and Plan: designated rib series ordered, awaiting official reading CXR reviewed, lower right sided rib fracture CXR no obvious pneumothorax per radiology patient instructed on IS, tolerated well lidoderm patch recommend out of bed/PT for ambulation when medically stable rib fracture treatment is outside of scope of orthopedics, as the potential complications are better suited to thoracic surgeon. If pain continues, or patient has any respiratory symptoms, recommend thoracic consultation above d/w lui Harrison with above Status: Acute
--- NOTE | 2017-01-03 15:51 | RAD ---
Chest x-ray and right ribs four views History: Rib fracture. Comparison: None available. Findings: Moderate venous congestion. Right hilar prominence. Cardiomegaly. Degenerative changes in the spine with paravertebral osteophytes. Transverse displaced fracture of a lower right lateral rib, possibly the 9th rib. Scoliotic curvature in the spine. Impression: Displaced rib fracture at the lateral right lower chest, possibly the right lateral 9th rib. No evidence of pneumothorax. Additional findings as above.
[2017-01-03] MEDS: Sodium Chloride 0.9% 1,000 ML IV SCH ×2 (19:25→21:55)
--- NOTE | 2017-01-04 07:03 | CARD ---
APPROVED REPORT EXAM: Two-dimensional and M-mode echocardiogram with Doppler and color Doppler. Other Information Quality : GoodRhythm : NSR INDICATION CVA/TIA RISK FACTORS Hypertension Hyperlipidemia Diabetes M-Mode DIMENSIONS RVDd2.64 (2.1-3.2cm)Left Atrium (MM)2.49 (2.5-4.0cm) IVSd0.79 (0.7-1.1cm)Aortic Root3.13 (2.2-3.7cm) LVDd3.34 (4.0-5.6cm)Aortic Cusp Exc.2.00 (1.5-2.0cm) PWd0.94 (0.7-1.1cm)FS (%) 44 % LVDs1.88 (2.0-3.8cm)LVEF (%)76 (>50%) Mitral Valve MV E Yzuxrjzx72.4cm/sMV A Oucanrvl73.1cm/sE/A ratio1.0 TDI E/Lateral E'0.0E/Medial E'0.0 Tricuspid Valve TR Peak [id number]/sTR Peak [id number] LEFT VENTRICLE The left ventricle is normal size. There is normal left ventricular wall thickness. Left ventricle systolic function is normal. The Ejection Fraction is >70%. There is normal LV segmental wall motion. The left ventricular diastolic function is normal. RIGHT VENTRICLE The right ventricle is normal size. There is normal right ventricular wall thickness. The right ventricular systolic function is normal. ATRIA The left atrium size is normal. The right atrium size is normal. The interatrial septum is intact with no evidence for an atrial septal defect. AORTIC VALVE The aortic valve is normal in structure. No aortic regurgitation is present. There is no aortic valvular stenosis. There is no aortic valvular vegetation. MITRAL VALVE The mitral valve is normal in structure. There is no evidence of mitral valve prolapse. There is no mitral valve stenosis. There is no mitral valve regurgitation noted. TRICUSPID VALVE The tricuspid valve is normal in structure. There is mild tricuspid regurgitation. Right ventricular systolic pressure is estimated at 30-40 mmHg. There is mild pulmonary hypertension. PULMONIC VALVE The pulmonic valve is not well visualized. There is no pulmonic valvular regurgitation. GREAT VESSELS The aortic root is normal in size. PERICARDIAL EFFUSION There is no significant pericardial effusion. <Conclusion> Left ventricle systolic function is normal. The Ejection Fraction is >70%. No aortic regurgitation is present. There is no mitral valve regurgitation noted. There is mild tricuspid regurgitation. There is mild pulmonary hypertension. There is no pulmonic valvular regurgitation.
--- NOTE | 2017-01-04 07:56 | CP.PCM.PN ---
<Kim Lozada - Last Filed: 01/04/17 13:08> Subjective - Date & Time of Evaluation Date of Evaluation: 01/04/17 Time of Evaluation: 07:51 - Subjective Subjective: Patient seen and examined at bedside. Patient complains of pain to her right ribcage. She admits to increased pain with deep inspiration. Patient is otherwise comfortable and has no complaints. She denies chest pain, palpitations , abdominal pain, nausea, vomiting, constipation, diarrhea and hematochezia. Objective - Vital Signs/Intake and Output Vital Signs (last 24 hours): Temp Pulse Resp BP Pulse Ox 98.2 F 69 18 111/68 94 L 01/04/17 07:00 01/04/17 07:00 01/04/17 07:00 01/04/17 07:00 01/04/17 07:00 Intake and Output: 01/04/17 01/04/17 06:59 18:59 Intake Total 1080 Balance 1080 - Medications Medications: Current Medications Clopidogrel Bisulfate (Plavix) 75 mg PO DAILY [facility] Last Admin: 01/03/17 11:20 Dose: 75 mg Donepezil HCl (Aricept) 10 mg PO HS [facility] Last Admin: 01/03/17 21:54 Dose: 10 mg Escitalopram Oxalate (Lexapro) 20 mg PO DAILY [facility] Last Admin: 01/03/17 11:20 Dose: 20 mg Famotidine (Pepcid) 20 mg PO DAILY [facility] Last Admin: 01/03/17 11:20 Dose: 20 mg Sodium Chloride (Sodium Chloride 0.9%) 1,000 mls @ 75 mls/hr IV .[id number] [facility] Last Admin: 01/03/17 21:55 Dose: 75 mls/hr Ursodiol (Actigall) 300 mg PO BID [facility] Last Admin: 01/03/17 18:57 Dose: 300 mg - Labs Labs: 01/03/17 07:24 01/03/17 07:24 PT 12.3 SECONDS (9.7-12.2) H 01/03/17 07:24 INR 1.1 01/03/17 07:24 APTT 30 SECONDS (21-34) 01/03/17 07:24 - Constitutional Appears: Non-toxic, No Acute Distress - Head Exam Head Exam: ATRAUMATIC, NORMAL INSPECTION, NORMOCEPHALIC - Eye Exam Eye Exam: EOMI, Normal appearance, PERRL - ENT Exam ENT Exam: Mucous Membranes Moist, Normal Exam - Respiratory Exam Respiratory Exam: Clear to Ausculation Bilateral, NORMAL BREATHING PATTERN. absent: Rales, Rhonchi, Wheezes Additional comments: pain to right ribcage - Cardiovascular Exam Cardiovascular Exam: +S1, +S2 - GI/Abdominal Exam GI & Abdominal Exam: Soft, Normal Bowel Sounds. absent: Firm, Guarding - Extremities Exam Extremities Exam: Normal Inspection. absent: Pedal Edema, Tenderness - Back Exam Back Exam: NORMAL INSPECTION - Neurological Exam Neurological Exam: Alert, Awake, Oriented x3 - Psychiatric Exam Psychiatric exam: Normal Affect, Normal Mood - Skin Skin Exam: Intact, Normal Color, Warm Assessment and Plan - Assessment and Plan (Free Text) Assessment: Syncope Cardiogenic vs. Neurogenic vs. Polypharmacy vs. Anemia vs. Hypoglycemia vs. Infection Cardiogenic Troponin I <0.0120, MAG Panel negative x 3 EKG: NSR at rate of 74, left axis deviation Patient had Shira Scan stress test in [address] Lopez which appears to have been normal. Dr. Lopez to examine patient tomorrow. Negative for orthostatics Blood pressure stable at 120/76 Hold home anti-hypertensive agent and diuretic - Valsartan 80 mg po daily and Hydrochlorothiazide 12.5 mg po daily Echocardiogram - The left ventricle systolic function is normal. The EF is >70% . No aortic regurgitation is present. There is no mitral valve regurgitation noted. There is mild tricuspid regurgitation and pulmonary hypertension. There is no pulmonic valvular regurgitation. Carotid Doppler - negative Neurogenic Head CT: No acute intracranial pathology identified Consider seizure as patient had loss of urine and vomitus prolactin 17.7 HIV - negative, B12 419, Folate 9.3, RPR - nonreactive Neurology Consulted, Dr. Lopez, help appreciated MRA Head: Normal Head/Brain MRA MRA Neck: No evidence of hemodynamically significant stenosis in the carotid arteries at the neck. Brain MRI: age-related atrophy and chronic white matter ischemic changes. No evidence of acute intracranial abnormality. Small benign-appearing right parotid gland cyst seen measuring 11 mm. 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 Seizure precautions, Aspiration precautions, Fall precautions Polypharmacy Hold antihypertensive agents as above Hold hypoglycemic agents - Metformin 500 mg po daily and Januvia 100 mg po daily Hold Mirtazapine 15 mg po HS Microcytic Anemia Hemoglobin/Hematocrit 10.4/32.2 MCV 77.4 Admits to dark stools f/u Iron studies - Iron 67, TIBC 308, % Saturation 22, Ferritin 85.7, Haptoglobin elevated 286, Reticulocyte count 1.3 FOBT - negative GI consulted, Dr. Peña, help appreciated -No overt GI bleed. Patient to follow- up as outpatient on 01/16. Recommend continuing PPI. Recent colonoscopy for colonic polyps but needs repeat as patient could not tolerate prep due to emesis Patient had recent EGD. Will reach out to Dr. Andres Holland at [place] for report. Hypoglycemia Sugar 96 with hypoglycemic agents held currently not hypoglycemic Hold hypoglycemic agents Accuchecks f/u hemoglobin a1c Possible Infection No leukocytosis CXR: no acute pulmonary disease UA: negative, follow-up culture f/u Procalcitonin Right Rib Fracture Pain medications limited as we are not aware of what type of liver disease patient has Ice packs to rib Encouraged to use incentive spirometer q1h Start Duoneb inhaler BID MARCIAL On Normal Saline IV @75cc CXR: Mildly displaced lateral 11th rib fracture, appears acute. Hip X-ray: No acute displaced fracture or dislocation evident. Ribs with Chest X-Ray: Displaced rib fracture at the lateral right lower chest, possibly the right lateral 9th rib. No evidence of pneumothorax. Consult Orthopedic Surgeon, Dr. Awad, help appreciated. Liver Disease Patient follows with GI, Dr. Holland. Dr. Peña consulted. Follow-up recommendations. Transaminitis - AST/ALT: 50/51 , improving Alkaline Phosphatase 276 Ammonia <9L GGT 147 Hepatitis Panel - negative HIV negative Abdominal US: Two solid echogenic masses within the liver measuring up to 3.8 centimeters in the right hepatic lobe. These are of uncertain clinical etiology and correlation with a multiphasic CT or MR scan is recommended to better evaluate these lesions and exclude underlying neoplasm. Fatty infiltration of the liver. Cholelithiasis.Prominent common bile duct measuring 9 millimeters. Limited visualization of the pancreas and spleen. 2.5 centimeter upper pole left renal cyst. Incidentally noted is a prominent lymph node seen adjacent to the pancreas measuring up to 1.9 centimeters. Will need outpatient follow-up for Abdominal Ultrasound findings. PAULA Improving BUN/CR 15/1.0 On normal saline IV @75cc Monitor Dysphagia patient not tolerating solids bedside swallow evaluation Clear Liquid Diet History of Dementia Continue on home medication Aricept 10 mg po HS Prophylaxis VTE CI due to GI bleed GI: continue home medication Dexilant 30 mg po daily SCDs PT/OT evaluation <Skip Saldivar - Last Filed: 02/04/17 10:17> Objective - Vital Signs/Intake and Output Vital Signs (last 24 hours): Temp Pulse Resp BP Pulse Ox 98.9 F 78 20 130/76 100 01/08/17 13:42 01/08/17 13:42 01/08/17 13:42 01/08/17 13:42 01/08/17 13:42 - Labs Labs: 01/08/17 07:16 01/08/17 07:16 PT 12.3 SECONDS (9.7-12.2) H 01/03/17 07:24 INR 1.1 01/03/17 07:24 APTT 30 SECONDS (21-34) 01/03/17 07:24 Attending/Attestation - Attestation I have personally seen and examined this patient.: Yes I have fully participated in the care of the patient.: Yes I have reviewed all pertinent clinical information, including history, physical exam and plan: Yes Notes (Text): Patient seen and examined with the resident. Agree with the resident's evaluation, assessment and plan. Syncope workup in progress
--- NOTE | 2017-01-04 08:14 | US ---
HISTORY: elevated liver enzymes COMPARISON: None. TECHNIQUE: Sonographic evaluation of the abdomen. FINDINGS: LIVER: Measures 14.7 cm. Increased echogenicity of the liver parenchyma. Echogenic solid lesions in the left hepatic lobe measuring 1.0 x 0.7 x 1.0 centimeters and in the right hepatic lobe measuring 3.5 x 2.8 x 3.8 centimeters. . GALLBLADDER: Cholelithiasis with prominent gallbladder calculus measuring up to 1.4 centimeters. Normal wall thickness of 2 millimeters. Negative sonographic Dunlap sign. COMMON BILE DUCT: Measures 9 millimeters. Prominent. PANCREAS: Visualized portions preserved. Pancreatic tail not well visualized. Mild prominence of the pancreatic duct measuring 3.5 millimeters. RIGHT KIDNEY: Measures 9.9 x 5.1 x 5.0cm. Normal echogenicity. No calculus, mass, or hydronephrosis. LEFT KIDNEY: Measures 10.1 x 5.2 x 5.3cm. Upper pole hypoechoic cyst measuring 2.2 x 2.1 x 2.5 centimeters. No calculi or hydronephrosis. SPLEEN: Not well visualized. AORTA: No aneurysmal dilatation. IVC: Unremarkable. OTHER FINDINGS: Incidentally noted is a prominent lymph node seen adjacent to the pancreas measuring up to 1.9 centimeters. IMPRESSION: Two solid echogenic masses within the liver measuring up to 3.8 centimeters in the right hepatic lobe. These are of uncertain clinical etiology and correlation with a multiphasic CT or MR scan is recommended to better evaluate these lesions and exclude underlying neoplasm. Fatty infiltration of the liver. Cholelithiasis. Prominent common bile duct measuring 9 millimeters. Limited visualization of the pancreas and spleen. 2.5 centimeter upper pole left renal cyst. Incidentally noted is a prominent lymph node seen adjacent to the pancreas measuring up to 1.9 centimeters.
--- NOTE | 2017-01-04 10:20 | VASCLAB ---
PROCEDURE: HISTORY: syncope COMPARISON: None available. TECHNIQUE: Grayscale and duplex Doppler evaluation of the cervical carotid and vertebral arteries were performed. The common carotid, carotid bifurcations and cervical Internal Carotid Artery (ICA) and proximal External Carotid Artery (ECA) were evaluated. The vertebral arteries were evaluated for gross patency and flow direction. Report prepared by Jona Sarmiento, BS, RVT FINDINGS: RIGHT CAROTID ARTERIES: 1. Common Carotid Artery: No significant focal plaque formation of the right common carotid artery. Maximum Peak Systolic velocity: 82 cm/sec: End-diastolic velocity 22 cm/sec. 2. Carotid Bifurcation: Heterogeneous plaque formation. Maximum Peak Systolic velocity: 63 cm/sec: End-diastolic velocity 21 cm/sec. 3. Internal Carotid Artery: Minimal plaque formation of the right proximal ICA which does not result in hemodynamically significant stenosis. Plaque description: 3.1. Proximal Segment: Peak systolic velocity 80 cm/sec: End-diastolic velocity 22 cm/sec - % stenosis 0-15% 3.2. Middle Segment: Peak systolic velocity 63 cm/sec: End-diastolic velocity 19 cm/sec - % stenosis 0-15% 3.3. Distal Segment: Peak systolic velocity 104 cm/sec: End-diastolic velocity 32 cm/sec - % stenosis 0-15% 4. External Carotid Artery: No significant focal plaque formation. Peak systolic velocity 102 cm/sec 5. ICA/CCA Ratio: 1.3 LEFT CAROTID ARTERIES: 1. Common Carotid Artery: No significant focal plaque formation of the left common carotid artery. Maximum Peak Systolic velocity: 93 cm/sec: End-diastolic velocity 26 cm/sec. 2. Carotid Bifurcation: plaque formation. Maximum Peak Systolic velocity: 81 cm/sec: End-diastolic velocity 18 cm/sec. 3. Internal Carotid Artery: Plaque description: 3.1. Proximal Segment: Peak systolic velocity 89 cm/sec: End-diastolic velocity 27 cm/sec - % stenosis 0-15% 3.2. Middle Segment: Peak systolic velocity 89 cm/sec: End-diastolic velocity 30 cm/sec - % stenosis 0-15% 3.3. Distal Segment: Peak systolic velocity 99 cm/sec: End-diastolic velocity 27 cm/sec - % stenosis 0-15% 4. External Carotid Artery: No significant focal plaque formation. Peak systolic velocity 92 cm/sec 5. ICA/CCA Ratio: 1.1 VERTEBRAL ARTERIES: 1. Right Vertebral Artery: The right vertebral artery flow direction is antegrade. 2. Left Vertebral Artery: The left vertebral artery flow direction is antegrade. OTHER FINDINGS: 1. Right Brachial Blood pressure: 120 mmHg. 2. Left Brachial Blood pressure: 120 mmHg. IMPRESSION: RIGHT: Duplex scan does not suggest hemodynamically significant stenosis of the right extracranial carotid arteries. LEFT: Duplex scan does not suggest hemodynamically significant stenosis of the left extracranial carotid arteries.
--- NOTE | 2017-01-04 10:33 | MRI ---
PROCEDURE: MRI BRAIN WITHOUT CONTRAST HISTORY: syncope COMPARISON: Comparison is made to the previous CT dated 01/02/2017 TECHNIQUE: Multiplanar, multisequence MR images of the brain were obtained without intravenous contrast enhancement. FINDINGS: HEMORRHAGE: None DWI: No evidence of an acute or early subacute infarction. BRAIN PARENCHYMA: No mass effect or edema. Mild atrophy is noted. Vbys-ki-[id number] white matter changes are also seen suggestive but nonspecific for chronic microvascular ischemic disease. VENTRICLES: There is suspicious for soft tissue nodule at the medial aspect of the left lateral ventricle adjacent to the midline measures 8.6 x 12 millimeter. CRANIUM: Unremarkable. ORBITS: There is opacification/effusion seen at the left mastoid. PARANASAL SINUSES/MASTOIDS: Mucosal thickening and small air-fluid level seen at the left sphenoid sinus. VASCULAR SYSTEM: Skull base flow voids intact. OTHER FINDINGS: None. IMPRESSION: No evidence of acute or subacute infarct. Mild atrophy and white matter ischemic chronic changes. Suspicious for small soft tissue nodule at the medial aspect of the left lateral ventricle. The differential diagnosis includes but not limited to ependymoma. If clinically warranted dedicated enhancing MRI of the brain may be obtained. No evidence of significant hydrocephalus. Preliminary report was submitted by [facility].
--- NOTE | 2017-01-04 10:39 | MRI ---
PROCEDURE: Magnetic Resonance Angiography Brain HISTORY: syncope COMPARISON: None available. TECHNIQUE: 3D time of flight MR angiography of the intracranial arteries was performed. Rotating maximum intensity projection images were generated. FINDINGS: INTERNAL CEREBRAL ARTERIES: Unremarkable. The skull base, petrous, cavernous and supraclinoid segments are bilaterally widely patient. ANTERIOR CEREBRAL ARTERIES: Unremarkable. A1 and A2 segments are widely patent. Smaller distal branches unremarkable, as visualized. MIDDLE CEREBRAL ARTERIES: Unremarkable. M1 and M2 segments are widely patent. Perisylvian branches grossly symmetric. POSTERIOR CIRCULATION: Basilar Artery: Unremarkable. Distal Vertebral Arteries: Unremarkable. Posterior Cerebral Arteries: Unremarkable. Posterior Inferior Cerebellar Arteries: Unremarkable. ANEURYSM/ VASCULAR MALFORMATIONS: None. OTHER FINDINGS: None. IMPRESSION: No evidence of significant stenosis or occlusion in the visualized intracranial arteries. Preliminary report was submitted by [facility].
--- NOTE | 2017-01-04 10:45 | MRI ---
PROCEDURE: MR Angiography of the neck without contrast HISTORY: syncope COMPARISON: None available. TECHNIQUE: 3D [id number] angiography of the neck was performed. Rotating maximum intensity projection images of the cervical carotid and vertebral arteries were generated. The origins of the common carotid arteries were not visualized, which is a limitation inherent to the non-contrast time of flight technique. FINDINGS: RIGHT CAROTID ARTERIES: Common Carotid Artery: Normal. Carotid Bifurcation: Normal. Internal Carotid Artery:Normal. External Carotid Artery (proximal branches): Normal. LEFT CAROTID ARTERIES: Common Carotid Artery: Normal. Carotid Bifurcation: Normal. Internal Carotid Artery:Normal. External Carotid Artery (proximal branches): Normal. VERTEBRAL ARTERIES: Right Vertebral Artery: Normal. Left Vertebral Artery: Normal. OTHER FINDINGS: None. IMPRESSION: No evidence of hemodynamically significant stenosis in the carotid arteries at the neck. Preliminary report was submitted by [facility].
--- NOTE | 2017-01-04 14:03 | CARD ---
APPROVED REPORT EKG Measurement Heart [id number] ME [id number] <Conclusion> Normal sinus rhythm Left axis deviation Nonspecific ST and T wave abnormality Abnormal ECG
--- NOTE | 2017-01-04 14:04 | CARD ---
APPROVED REPORT EKG Measurement Heart [id number] OR [id number] <Conclusion> Normal sinus rhythm Left axis deviation Nonspecific T wave abnormality Abnormal ECG
[2017-01-04] MEDS: Sodium Chloride 0.9% 1,000 ML IV SCH (16:47)
[2017-01-04 16:54] LABS: BASO % 0.4 % (0.0-2.0); EOS # 0.1 K/uL (0.0-0.7); EOS % 1.5 % (0.0-4.0); HEMATOCRIT 31.9 % (34.0-47.0); LYMPH # 2.2 K/uL (1.0-4.3); LYMPH % 21.9 % (20.0-40.0); MEAN CELL VOLUME 77.4 fL (81.0-99.0); MEAN CORPUSCULAR HEMOGLOBIN 25.3 pg (27.0-31.0); MEAN CORPUSCULAR HGB CONC 32.7 g/dL (33.0-37.0); MEAN PLATELET VOLUME 8.5 fL (7.2-11.7); MONO % 10.2 % (0.0-10.0); RED CELL DISTRIBUTION WIDTH 16.6 % (11.5-14.5)
[2017-01-04 17:04] LABS: CHLORIDE 100 mmol/L (98-107)
[2017-01-04 17:05] LABS: POTASSIUM 4.1 mmol/L (3.6-5.2); SODIUM 135 mmol/L (132-148)
[2017-01-04 17:07] LABS: AST/SGOT 43 U/L (14-36); BILIRUBIN,TOTAL 0.9 mg/dL (0.2-1.3); CARBON DIOXIDE 27 mmol/L (22-30); GFR AFRICAN-AMERICAN > 60; TOTAL PROTEIN 7.1 g/dL (6.3-8.3)
[2017-01-04 17:08] LABS: ALKALINE PHOSPHATASE 271 U/L (38-126); ALT/SGPT 48 U/L (9-52); BLOOD UREA NITROGEN 10 mg/dL (7-17); CALCIUM 9.1 mg/dl (8.6-10.4); GLUCOSE,RANDOM 97 mg/dL (65-105); MAGNESIUM 1.9 mg/dL (1.6-2.3)
[2017-01-04] MEDS: Albuterol-Ipratrop 3 mg / 0.5 (3 ml) UD INH SCH (19:51)
[2017-01-05] MEDS: Albuterol-Ipratrop 3 mg / 0.5 (3 ml) UD INH SCH ×2 (07:43→19:41)
--- NOTE | 2017-01-05 07:48 | CP.PCM.CON ---
History of Present Illness - History of Present Illness History of Present Illness: I was asked to evalaute patient for dyspnea and syncope. Patient is a 76 year old male with PMH HTN, hypercholesterolemia, CAD who presents with syncopeal event. The patient has complaints of dyspnea on exertion which is worse after walking one block. She has to stop in order for dyspnea to improve. The patient was found to have a syncopal event, and was found on the floor. The patient has history of CAD with stent placement. Review of Systems - Constitutional Constitutional: absent: As Per HPI, Anorexia, Chills, Daytime Sleepiness, Excessive Sweating, Fatigue, Fever, Frequent Falls, Headache, Increased Appetite , Lethargy, Malaise, Night Sweats, Snoring, Sleep Apnea, Weight Gain, Weight Loss, Weakness, Other - EENT Eyes: absent: As Per HPI, Blind Spots, Blurred Vision, Change in Vision, Decreased Night Vision, Diplopia, Discharge, Dry Eye, Exophthalmos, Floaters, Irritation, Itchy Eyes, Loss of Peripheral Vision, Pain, Photophobia, Requires Corrective Lenses, Sees Flashes, Spots in Vision, Tunnel Vision, Other Visual Disturbances, Loss of Vision, Other Ears: absent: As Per HPI, Decreased Hearing, Ear Discharge, Ear Pain, Tinnitus, Abnormal Hearing, Disequilibrium, Dizziness, Other Nose/Mouth/Throat: absent: As Per HPI, Epistaxis, Nasal Congestion, Nasal Discharge, Nasal Obstruction, Nasal Trauma, Nose Pain, Post Nasal Drip, Sinus Pain, Sinus Pressure, Bleeding Gums, Change in Voice, Dental Pain, Dry Mouth, Dysphagia, Halitosis, Hoarsness, Lip Swelling, Mouth Lesions, Mouth Pain, Odynophagia, Sore Throat, Throat Swelling, Tongue Swelling, Facial Pain, Neck Pain, Neck Mass, Other - Cardiovascular Cardiovascular: Dyspnea, Syncope - Respiratory Respiratory: absent: As Per HPI, Cough, Dyspnea, Hemoptysis, Dyspnea on Exertion , Wheezing, Snoring, Stridor, Pain on Inspiration, Chest Congestion, Excessive Mucous Production, Change in Mucous Color, Pain with Coughing, Other - Gastrointestinal Gastrointestinal: absent: As Per HPI, Abdominal Pain, Belching, Bloating, Change in Bowel Habits, Change in Stool Character, Coffee Ground Emesis, Constipation, Cramping, Diarrhea, Dyspepsia, Dysphagia, Early Satiety, Excessive Flatus, Fecal Incontinence, Heartburn, Hematemesis, Hematochezia, Loose Stools, Melena, Nausea, Odynophagia, Temesmus, Vomiting, Other - Genitourinary Genitourinary: absent: As Per HPI, Change in Urinary Stream, Difficulty Urinating, Dysuria, Flank Pain, Hematuria, Pyuria, Nocturia, Urinary Incontinence, Urinary Frequency, Urinary Hesitance, Urinary Urgency, Voiding Freq/Small Amts, Freq UTI, Hx Renal/Bladder Calculi, Hx /Renal Surgery, Bladder Distension, Other - Musculoskeletal Musculoskeletal: absent: As Per HPI, Abnormal Gait, Arthralgias, Atrophy, Back Pain, Deformity, Joint Swelling, Limited Range of Motion, Loss of Height, Muscle Cramps, Muscle Weakness, Myalgias, Neck Pain, Numbness, Radiating Pain into Limb, Stiffness, Tingling, Other - Integumentary Integumentary: absent: As Per HPI, Acne, Alopecia, Bleeding Lesions, Change in Hair, Change in Nails, Change in Pigmentation, Changing Lesions, Dry Skin, Erythema, Furuncle, Hirsutism, Lesions, New Lesions, Non-Healing Lesions, Photosensitivity, Pruritus, Rash, Skin Pain, Skin Ulcer, Sores, Striae, Swelling , Unusual Bruising, Wounds, Jaundice, Other - Neurological Neurological: absent: As Per HPI, Abnormal Gait, Abnormal Hearing, Abnormal Movements, Abnormal Speech, Behavioral Changes, Burning Sensations, Confusion, Convulsions, Disequilibrium, Dizziness, Numbness, Focal Weakness, Frequent Falls , Headaches, Lack of Coordination, Loss of Vision, Memory Loss, Paresthesias, Radicular Pain, Restless Legs, Sensory Deficit, Syncope, Tingling, Tremor, Vertigo, Weakness, Other Visual Disturbances, Other - Psychiatric Psychiatric: absent: As Per HPI, Abnormal Sleep Pattern, Anhedonia, Anxiety, Auditory Hallucinations, Behavioral Changes, Change in Appetite, Change in Libido, Confusion, Depression, Difficulty Concentrating, Hallucinations, Homicidal Ideation, Hopelessness, Irritability, Memory Loss, Mood Swings, Panic Attacks, Paranoia, Suicidal Ideation, Visual Hallucinations, Tactile Hallucinations, Other - Endocrine Endocrine: absent: As Per HPI, Change in Body Appearance, Change in Libido, Cold Intolorance, Deepening of Voice, Excessive Sweating, Fatigue, Flushing, Heat Intolorance, Increase in Ring/Shoe/Hat Size, Palpitations, Polydipsia, Polyphagia, Polyuria, Other - Hematologic/Lymphatic Hematologic: absent: As Per HPI, Easy Bleeding, Easy Bruising, Lymphadenopathy, Other Past Patient History - Past Medical History & Family History Past Medical History?: Yes Past Family History: Reviewed and not pertinent - Past Social History Smoking Status: Former Smoker - CARDIAC Hx Hypertension: Yes - PULMONARY Hx Respiratory Disorders: Yes Hx Asthma: Yes Hx Sleep Apnea: Yes (C-PAP) Other/Comment: Claimed she does not use C-PAP anymore "I don't need it anymore" - NEUROLOGICAL Hx Neurological Disorder: Yes Hx Alzheimer's Disease: (MEMORY LOSS) Other/Comment: Claimed mind is clear now "I was given medication"my mind is clear now" - HEENT Hx HEENT Problems: Yes Hx Cataracts: Yes - RENAL Hx Chronic Kidney Disease: Yes Hx Kidney Stones: Yes (PASSED NO SURGERY) - ENDOCRINE/METABOLIC Hx Endocrine Disorders: Yes Hx Diabetes Mellitus Type 2: Yes - HEMATOLOGICAL/ONCOLOGICAL Hx Blood Disorders: Yes Hx Anemia: Yes - INTEGUMENTARY Hx Dermatological Problems: No - MUSCULOSKELETAL/RHEUMATOLOGICAL Hx Arthritis: Yes - GASTROINTESTINAL Hx Gastritis: Yes - GENITOURINARY/GYNECOLOGICAL Hx Genitourinary Disorders: Yes (HX.STONES) Hx Bladder Stone: Yes - PSYCHIATRIC Hx Psychophysiologic Disorder: Yes Hx Depression: Yes Hx Substance Use: No - SURGICAL HISTORY Hx Surgeries: Yes Hx Orthopedic Surgery: Yes (Both arms -after the fall around 2 years ago) Hx Tonsillectomy: Yes - ANESTHESIA Hx Anesthesia: Yes Hx Anesthesia Reactions: No Hx Malignant Hyperthermia: No Has any member of the family had a problem w/ anesthesia?: No Meds Allergies/Adverse Reactions: Allergies Allergy/AdvReac Type Severity Reaction Status Date / Time No Known Allergies Allergy Verified 01/02/17 11:34 - Medications Medications: Current Medications Albuterol/Ipratropium (Duoneb 3 Mg/0.5 Mg (3 Ml) Ud) 3 ml INH RBID [facility] Last Admin: 01/05/17 07:43 Dose: 3 ml Clopidogrel Bisulfate (Plavix) 75 mg PO DAILY [facility] Last Admin: 01/04/17 09:19 Dose: 75 mg Donepezil HCl (Aricept) 10 mg PO HS [facility] Last Admin: 01/04/17 21:36 Dose: 10 mg Escitalopram Oxalate (Lexapro) 20 mg PO DAILY [facility] Last Admin: 01/04/17 09:19 Dose: 20 mg Famotidine (Pepcid) 20 mg PO DAILY [facility] Last Admin: 01/04/17 09:18 Dose: 20 mg Sodium Chloride (Sodium Chloride 0.9%) 1,000 mls @ 75 mls/hr IV .[id number] [facility] Last Admin: 01/04/17 16:47 Dose: 75 mls/hr Ursodiol (Actigall) 300 mg PO BID [facility] Last Admin: 01/04/17 17:19 Dose: 300 mg Physical Exam - Constitutional Appears: Non-toxic - Head Exam Head Exam: NORMAL INSPECTION - Eye Exam Eye Exam: Normal appearance - ENT Exam ENT Exam: Mucous Membranes Moist - Neck Exam Neck exam: Positive for: Full Rom - Respiratory Exam Respiratory Exam: NORMAL BREATHING PATTERN - Cardiovascular Exam Cardiovascular Exam: REGULAR RHYTHM - GI/Abdominal Exam GI & Abdominal Exam: Normal Bowel Sounds - Rectal Exam Rectal Exam: Deferred - Extremities Exam Extremities exam: Positive for: pedal edema - Back Exam Back exam: NORMAL INSPECTION - Neurological Exam Neurological exam: Alert, Oriented x3 - Psychiatric Exam Psychiatric exam: Normal Affect - Skin Skin Exam: Normal Color Results - Vital Signs Recent Vital Signs: Last Vital Signs Temp 98 F 01/04/17 23:25 Pulse 76 01/04/17 23:25 Resp 20 01/04/17 23:25 BP 110/68 01/04/17 23:25 Pulse Ox 96 01/04/17 23:25 - Labs Result Diagrams: 01/06/17 07:23 01/06/17 07:23 Labs: Laboratory Results - last 24 hr 01/03/17 01/04/17 01/04/17 07:24 11:18 16:32 WBC RBC Hgb Hct MCV MCH MCHC RDW Plt Count MPV Neut % (Auto) Lymph % (Auto) [place] % (Auto) Eos % (Auto) Baso % (Auto) Neut # Lymph # [place] # Eos # Baso # Haptoglobin 286 H Sodium Potassium Chloride Carbon Dioxide Anion Gap BUN Creatinine Est GFR ( Amer) Est GFR (Non-Af Amer) POC Glucose (mg/dL) 95 123 H Random Glucose Calcium Magnesium Total Bilirubin AST ALT Alkaline Phosphatase Total Protein Albumin Globulin Albumin/Globulin Ratio 01/04/17 01/04/17 01/04/17 16:43 16:43 21:54 WBC 10.0 RBC 4.11 Hgb 10.4 L Hct 31.9 L MCV 77.4 L MCH 25.3 L MCHC 32.7 L RDW 16.6 H Plt Count 384 MPV 8.5 Neut % (Auto) 66.0 Lymph % (Auto) 21.9 [place] % (Auto) 10.2 H Eos % (Auto) 1.5 Baso % (Auto) 0.4 Neut # 6.6 Lymph # 2.2 [place] # 1.0 H Eos # 0.1 Baso # 0.0 Haptoglobin Sodium 135 Potassium 4.1 Chloride 100 Carbon Dioxide 27 Anion Gap 13 BUN 10 Creatinine 0.8 Est GFR ( Amer) > 60 Est GFR (Non-Af Amer) > 60 POC Glucose (mg/dL) 95 Random Glucose 97 Calcium 9.1 Magnesium 1.9 Total Bilirubin 0.9 AST 43 H ALT 48 Alkaline Phosphatase 271 H Total Protein 7.1 Albumin 3.5 Globulin 3.6 Albumin/Globulin Ratio 1.0 01/05/17 06:24 WBC RBC Hgb Hct MCV MCH MCHC RDW Plt Count MPV Neut % (Auto) Lymph % (Auto) [place] % (Auto) Eos % (Auto) Baso % (Auto) Neut # Lymph # [place] # Eos # Baso # Haptoglobin Sodium Potassium Chloride Carbon Dioxide Anion Gap BUN Creatinine Est GFR ( Amer) Est GFR (Non-Af Amer) POC Glucose (mg/dL) 96 Random Glucose Calcium Magnesium Total Bilirubin AST ALT Alkaline Phosphatase Total Protein Albumin Globulin Albumin/Globulin Ratio - EKG Data EKG Interpreted by: Myself EKG shows normal: Sinus rhythm Assessment & Plan (1) Dyspnea Assessment and Plan: will need evaluation for CAD as a cause of her symptoms. givne progressive nature will schedule cardiac cath Status: Acute (2) HTN (hypertension) Assessment and Plan: blood pressure control Status: Acute (3) CAD (coronary artery disease) Assessment and Plan: antiplatelet therapy Status: Acute (4) Syncope Assessment and Plan: will monitor on telemetry Status: Acute Priority: High - Date & Time Date: 01/05/17 Time: 08:00
--- NOTE | 2017-01-05 07:48 | CP.PCM.CON ---
History of Present Illness - History of Present Illness History of Present Illness: patient seen/examined. full consult to follow. progressive dyspnea on exertion, worse after walking a flight of stairs. multiple syncopal events, last resulting in rib fracture. recommend cardiac cath to assess for coronarystenosis. May need implantable loop recorder if no significant CAD. I will discuss with Dr. Hernandez after cardiac catheterization. Past Patient History - Past Medical History & Family History Past Medical History?: Yes Past Family History: Reviewed and not pertinent - Past Social History Smoking Status: Former Smoker - CARDIAC Hx Hypertension: Yes - PULMONARY Hx Respiratory Disorders: Yes Hx Asthma: Yes Hx Sleep Apnea: Yes (C-PAP) Other/Comment: Claimed she does not use C-PAP anymore "I don't need it anymore" - NEUROLOGICAL Hx Neurological Disorder: Yes Hx Alzheimer's Disease: (MEMORY LOSS) Other/Comment: Claimed mind is clear now "I was given medication"my mind is clear now" - HEENT Hx HEENT Problems: Yes Hx Cataracts: Yes - RENAL Hx Chronic Kidney Disease: Yes Hx Kidney Stones: Yes (PASSED NO SURGERY) - ENDOCRINE/METABOLIC Hx Endocrine Disorders: Yes Hx Diabetes Mellitus Type 2: Yes - HEMATOLOGICAL/ONCOLOGICAL Hx Blood Disorders: Yes Hx Anemia: Yes - INTEGUMENTARY Hx Dermatological Problems: No - MUSCULOSKELETAL/RHEUMATOLOGICAL Hx Arthritis: Yes - GASTROINTESTINAL Hx Gastritis: Yes - GENITOURINARY/GYNECOLOGICAL Hx Genitourinary Disorders: Yes (HX.STONES) Hx Bladder Stone: Yes - PSYCHIATRIC Hx Psychophysiologic Disorder: Yes Hx Depression: Yes Hx Substance Use: No - SURGICAL HISTORY Hx Surgeries: Yes Hx Orthopedic Surgery: Yes (Both arms -after the fall around 2 years ago) Hx Tonsillectomy: Yes - ANESTHESIA Hx Anesthesia: Yes Hx Anesthesia Reactions: No Hx Malignant Hyperthermia: No Has any member of the family had a problem w/ anesthesia?: No Meds Allergies/Adverse Reactions: Allergies Allergy/AdvReac Type Severity Reaction Status Date / Time No Known Allergies Allergy Verified 01/02/17 11:34 - Medications Medications: Current Medications Albuterol/Ipratropium (Duoneb 3 Mg/0.5 Mg (3 Ml) Ud) 3 ml INH RBID [facility] Last Admin: 01/05/17 07:43 Dose: 3 ml Clopidogrel Bisulfate (Plavix) 75 mg PO DAILY [facility] Last Admin: 01/04/17 09:19 Dose: 75 mg Donepezil HCl (Aricept) 10 mg PO [facility] Last Admin: 01/04/17 21:36 Dose: 10 mg Escitalopram Oxalate (Lexapro) 20 mg PO DAILY [facility] Last Admin: 01/04/17 09:19 Dose: 20 mg Famotidine (Pepcid) 20 mg PO DAILY [facility] Last Admin: 01/04/17 09:18 Dose: 20 mg Sodium Chloride (Sodium Chloride 0.9%) 1,000 mls @ 75 mls/hr IV .[id number] [facility] Last Admin: 01/04/17 16:47 Dose: 75 mls/hr Ursodiol (Actigall) 300 mg PO BID [facility] Last Admin: 01/04/17 17:19 Dose: 300 mg Results - Vital Signs Recent Vital Signs: Last Vital Signs Temp 98 F 01/04/17 23:25 Pulse 76 01/04/17 23:25 Resp 20 01/04/17 23:25 BP 110/68 01/04/17 23:25 Pulse Ox 96 01/04/17 23:25 - Labs Result Diagrams: 01/04/17 16:43 01/04/17 16:43 Labs: Laboratory Results - last 24 hr 01/03/17 01/04/17 01/04/17 07:24 11:18 16:32 WBC RBC Hgb Hct MCV MCH MCHC RDW Plt Count MPV Neut % (Auto) Lymph % (Auto) [place] % (Auto) Eos % (Auto) Baso % (Auto) Neut # Lymph # [place] # Eos # Baso # Haptoglobin 286 H Sodium Potassium Chloride Carbon Dioxide Anion Gap BUN Creatinine Est GFR ( Amer) Est GFR (Non-Af Amer) POC Glucose (mg/dL) 95 123 H Random Glucose Calcium Magnesium Total Bilirubin AST ALT Alkaline Phosphatase Total Protein Albumin Globulin Albumin/Globulin Ratio 01/04/17 01/04/17 01/04/17 16:43 16:43 21:54 WBC 10.0 RBC 4.11 Hgb 10.4 L Hct 31.9 L MCV 77.4 L MCH 25.3 L MCHC 32.7 L RDW 16.6 H Plt Count 384 MPV 8.5 Neut % (Auto) 66.0 Lymph % (Auto) 21.9 [place] % (Auto) 10.2 H Eos % (Auto) 1.5 Baso % (Auto) 0.4 Neut # 6.6 Lymph # 2.2 [place] # 1.0 H Eos # 0.1 Baso # 0.0 Haptoglobin Sodium 135 Potassium 4.1 Chloride 100 Carbon Dioxide 27 Anion Gap 13 BUN 10 Creatinine 0.8 Est GFR ( Amer) > 60 Est GFR (Non-Af Amer) > 60 POC Glucose (mg/dL) 95 Random Glucose 97 Calcium 9.1 Magnesium 1.9 Total Bilirubin 0.9 AST 43 H ALT 48 Alkaline Phosphatase 271 H Total Protein 7.1 Albumin 3.5 Globulin 3.6 Albumin/Globulin Ratio 1.0 01/05/17 06:24 WBC RBC Hgb Hct MCV MCH MCHC RDW Plt Count MPV Neut % (Auto) Lymph % (Auto) [place] % (Auto) Eos % (Auto) Baso % (Auto) Neut # Lymph # [place] # Eos # Baso # Haptoglobin Sodium Potassium Chloride Carbon Dioxide Anion Gap BUN Creatinine Est GFR ( Amer) Est GFR (Non-Af Amer) POC Glucose (mg/dL) 96 Random Glucose Calcium Magnesium Total Bilirubin AST ALT Alkaline Phosphatase Total Protein Albumin Globulin Albumin/Globulin Ratio
--- NOTE | 2017-01-05 09:05 | CP.PCM.PN ---
<Kim Lozada - Last Filed: 01/05/17 18:03> Subjective - Date & Time of Evaluation Date of Evaluation: 01/05/17 Time of Evaluation: 09:02 - Subjective Subjective: Patient seen and examined at bedside. Patient is comfortable. She admits to pain to right ribcage. She states she is using her incentive spirometer every hour and continues to work with physical therapy. Patient was evaluated by Dr. Lopez (cardiology) and is for cardiac catheterization tomorrow to evaluate for possible coronary stenosis. Patient denies chest pain, shortness of breath, fever, chills, nausea, vomiting, lower extremity swelling. She is tolerating diet well and having normal bowel movements. Objective - Vital Signs/Intake and Output Vital Signs (last 24 hours): Temp Pulse Resp BP Pulse Ox 98.2 F 72 20 120/66 96 01/05/17 07:02 01/05/17 07:02 01/05/17 07:02 01/05/17 07:02 01/05/17 07:02 Intake and Output: 01/05/17 01/05/17 06:59 18:59 Intake Total 950 Balance 950 - Medications Medications: Current Medications Albuterol/Ipratropium (Duoneb 3 Mg/0.5 Mg (3 Ml) Ud) 3 ml INH RBID [facility] Last Admin: 01/05/17 07:43 Dose: 3 ml Clopidogrel Bisulfate (Plavix) 75 mg PO DAILY [facility] Last Admin: 01/04/17 09:19 Dose: 75 mg Donepezil HCl (Aricept) 10 mg PO HS [facility] Last Admin: 01/04/17 21:36 Dose: 10 mg Escitalopram Oxalate (Lexapro) 20 mg PO DAILY [facility] Last Admin: 01/04/17 09:19 Dose: 20 mg Famotidine (Pepcid) 20 mg PO DAILY [facility] Last Admin: 01/04/17 09:18 Dose: 20 mg Sodium Chloride (Sodium Chloride 0.9%) 1,000 mls @ 75 mls/hr IV .[id number] [facility] Last Admin: 01/04/17 16:47 Dose: 75 mls/hr Ursodiol (Actigall) 300 mg PO BID [facility] Last Admin: 01/04/17 17:19 Dose: 300 mg - Labs Labs: 01/04/17 16:43 01/04/17 16:43 PT 12.3 SECONDS (9.7-12.2) H 01/03/17 07:24 INR 1.1 01/03/17 07:24 APTT 30 SECONDS (21-34) 01/03/17 07:24 - Constitutional Appears: Non-toxic, No Acute Distress - Head Exam Head Exam: ATRAUMATIC, NORMAL INSPECTION, NORMOCEPHALIC - Eye Exam Eye Exam: EOMI, Normal appearance, PERRL - ENT Exam ENT Exam: Mucous Membranes Moist - Neck Exam Neck Exam: Full ROM, Normal Inspection - Respiratory Exam Respiratory Exam: Clear to Ausculation Bilateral, NORMAL BREATHING PATTERN. absent: Rales, Rhonchi, Wheezes - Cardiovascular Exam Cardiovascular Exam: +S1, +S2. absent: Tachycardia - GI/Abdominal Exam GI & Abdominal Exam: Soft, Normal Bowel Sounds. absent: Tenderness - Extremities Exam Extremities Exam: Normal Inspection. absent: Pedal Edema, Tenderness - Neurological Exam Neurological Exam: Alert, Awake, Oriented x3 - Psychiatric Exam Psychiatric exam: Normal Affect, Normal Mood - Skin Skin Exam: Intact, Normal Color Assessment and Plan - Assessment and Plan (Free Text) Assessment: Syncope Cardiogenic vs. Neurogenic vs. Polypharmacy vs. Anemia vs. Hypoglycemia vs. Infection Cardiogenic Troponin I <0.0120, MAG Panel negative x 3 EKG: NSR at rate of 74, left axis deviation Heavy Equipment Mechanic, Dr. Lopez, evaluated patient. For cardiac catheterization tomorrow to evaluate for possible coronary artery stenosis. NPO in AM. If stenosis not detected, patient may need implantable loop recorder. Patient had Shira Scan stress test in [address] Lopez which appears to have been normal. Dr. Lopez to examine patient tomorrow. Negative for orthostatics Blood pressure stable at 120/76 Hold home anti-hypertensive agent and diuretic - Valsartan 80 mg po daily and Hydrochlorothiazide 12.5 mg po daily Echocardiogram - The left ventricle systolic function is normal. The EF is >70% . No aortic regurgitation is present. There is no mitral valve regurgitation noted. There is mild tricuspid regurgitation and pulmonary hypertension. There is no pulmonic valvular regurgitation. Carotid Doppler - negative Neurogenic Head CT: No acute intracranial pathology identified Consider seizure as patient had loss of urine and vomitus prolactin 17.7 HIV - negative, B12 419, Folate 9.3, RPR - nonreactive Neurology Consulted, Dr. Lopez, help appreciated MRA Head: Normal Head/Brain MRA MRA Neck: No evidence of hemodynamically significant stenosis in the carotid arteries at the neck. Brain MRI: age-related atrophy and chronic white matter ischemic changes. No evidence of acute intracranial abnormality. Small benign-appearing right parotid gland cyst seen measuring 11 mm. 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 Will follow-up with Dr. Lopez in regards to further inpatient evaluation with MRI with contrast. Seizure precautions, Aspiration precautions, Fall precautions Polypharmacy Hold antihypertensive agents as above Hold hypoglycemic agents - Metformin 500 mg po daily and Januvia 100 mg po daily Hold Mirtazapine 15 mg po HS Microcytic Anemia Hemoglobin/Hematocrit 10.4/32.2 MCV 77.4 Admits to dark stools f/u Iron studies - Iron 67, TIBC 308, % Saturation 22, Ferritin 85.7, Haptoglobin elevated 286, Reticulocyte count 1.3 FOBT - negative GI consulted, Dr. Peña, help appreciated -No overt GI bleed. Patient to follow- up as outpatient on 01/16. Recommend continuing PPI. Recent colonoscopy for colonic polyps but needs repeat as patient could not tolerate prep due to emesis Patient had recent EGD. Requested EGD/Colonoscopy report from GI, Dr. Andres Holland: Per faxed medical records: Colonoscopy (11/29/16): preparation of colon non-satisfactory. Patient will require repeat colonoscopy as outpatient with Dr. Holland to evaluate for GI bleed. EGD bx: stomach antrum (11/22/16): gastric mucosa with mild chronic inflammation and reactive change. Negative for intestinal metaplasia. Immunostain for H. pylori negative. Gastritis. Patient will require outpatient referral to [employer] for further characterization of microcytic anemia. Hypoglycemia Sugar 96 with hypoglycemic agents held currently not hypoglycemic Hold hypoglycemic agents Accuchecks hemoglobin a1c 6.1 Possible Infection No leukocytosis CXR: no acute pulmonary disease UA: negative, follow-up culture f/u Procalcitonin Right Rib Fracture Pain medications limited as we are not aware of what type of liver disease patient has Ice packs to rib Encouraged to use incentive spirometer q1h Continue Duoneb inhaler BID MARCIAL On Normal Saline IV @75cc CXR: Mildly displaced lateral 11th rib fracture, appears acute. Hip X-ray: No acute displaced fracture or dislocation evident. Ribs with Chest X-Ray: Displaced rib fracture at the lateral right lower chest, possibly the right lateral 9th rib. No evidence of pneumothorax. Consult Orthopedic Surgeon, Dr. Awad, help appreciated. Liver Disease Patient follows with GI, Dr. Holland. Dr. Peña consulted. Follow-up recommendations. Transaminitis - AST/ALT: 50/51 , improving Alkaline Phosphatase 276 Ammonia <9L GGT 147 Hepatitis Panel - negative HIV negative Abdominal US: Two solid echogenic masses within the liver measuring up to 3.8 centimeters in the right hepatic lobe. These are of uncertain clinical etiology and correlation with a multiphasic CT or MR scan is recommended to better evaluate these lesions and exclude underlying neoplasm. Fatty infiltration of the liver. Cholelithiasis.Prominent common bile duct measuring 9 millimeters. Limited visualization of the pancreas and spleen. 2.5 centimeter upper pole left renal cyst. Incidentally noted is a prominent lymph node seen adjacent to the pancreas measuring up to 1.9 centimeters. Will need outpatient follow-up for Abdominal Ultrasound findings. Requested reports from Dr. Holland (GI) from [facility] Improved Discontinue normal saline IV @75cc Monitor Dysphagia bedside swallow evaluation performed Patient tolerating solids Heart Healthy Diet - Mod Consistent Carbs History of Dementia Continue on home medication Aricept 10 mg po HS Prophylaxis VTE CI due to GI bleed GI: continue home medication Dexilant 30 mg po daily SCDs PT/OT evaluation <Asael Pearson - Last Filed: 01/06/17 07:38> Objective - Vital Signs/Intake and Output Vital Signs (last 24 hours): Temp Pulse Resp BP Pulse Ox 98.8 F 68 20 115/60 95 01/05/17 23:30 01/05/17 23:30 01/05/17 23:30 01/05/17 23:30 01/05/17 23:30 Intake and Output: 01/06/17 01/06/17 06:59 18:59 Intake Total 520 Balance 520 - Medications Medications: Current Medications Albuterol/Ipratropium (Duoneb 3 Mg/0.5 Mg (3 Ml) Ud) 3 ml INH RBID [facility] Last Admin: 01/05/17 19:41 Dose: 3 ml Clopidogrel Bisulfate (Plavix) 75 mg PO DAILY [facility] Last Admin: 01/05/17 09:44 Dose: 75 mg Donepezil HCl (Aricept) 10 mg PO HS [facility] Last Admin: 01/05/17 21:15 Dose: 10 mg Escitalopram Oxalate (Lexapro) 20 mg PO DAILY [facility] Last Admin: 01/05/17 09:44 Dose: 20 mg Famotidine (Pepcid) 20 mg PO DAILY [facility] Last Admin: 01/05/17 09:44 Dose: 20 mg Ursodiol (Actigall) 300 mg PO BID [facility] Last Admin: 01/05/17 17:51 Dose: 300 mg - Labs Labs: 01/05/17 09:26 01/05/17 09:26 PT 12.3 SECONDS (9.7-12.2) H 01/03/17 07:24 INR 1.1 01/03/17 07:24 APTT 30 SECONDS (21-34) 01/03/17 07:24 Attending/Attestation - Attestation I have personally seen and examined this patient.: Yes I have fully participated in the care of the patient.: Yes I have reviewed all pertinent clinical information, including history, physical exam and plan: Yes Notes (Text): 01/06/17 07:37 This patient was seen by me at 11:30 AM 01/05/17 The history, physical, and assessment and plan were thoroughly gone over with the Coding Consultant. Asael Pearson D.O.
[2017-01-05 09:32] LABS: BASO % 0.6 % (0.0-2.0); EOS # 0.2 K/uL (0.0-0.7); EOS % 2.3 % (0.0-4.0); HEMATOCRIT 31.7 % (34.0-47.0); LYMPH # 2.2 K/uL (1.0-4.3); MEAN CORPUSCULAR HEMOGLOBIN 25.3 pg (27.0-31.0); MEAN CORPUSCULAR HGB CONC 32.4 g/dL (33.0-37.0); MEAN PLATELET VOLUME 8.2 fL (7.2-11.7); MONO # 0.6 K/uL (0.0-0.8); MONO % 8.5 % (0.0-10.0); RED CELL DISTRIBUTION WIDTH 16.5 % (11.5-14.5); WHITE BLOOD COUNT 7.4 K/uL (4.8-10.8)
[2017-01-05 09:41] LABS: CHLORIDE 103 mmol/L (98-107); SODIUM 139 mmol/L (132-148)
[2017-01-05 09:42] LABS: POTASSIUM 3.4 mmol/L (3.6-5.2)
[2017-01-05 09:44] LABS: ALB/GLOB RATIO 0.9 (1.0-2.1); ALKALINE PHOSPHATASE 259 U/L (38-126); ALT/SGPT 32 U/L (9-52); AST/SGOT 41 U/L (14-36); BILIRUBIN,TOTAL 0.6 mg/dL (0.2-1.3); BLOOD UREA NITROGEN 10 mg/dL (7-17); CALCIUM 8.9 mg/dl (8.6-10.4); CARBON DIOXIDE 24 mmol/L (22-30); GFR AFRICAN-AMERICAN > 60; GLUCOSE,RANDOM 165 mg/dL (65-105); TOTAL PROTEIN 6.8 g/dL (6.3-8.3)
[2017-01-05 09:45] LABS: MAGNESIUM 1.7 mg/dL (1.6-2.3)
[2017-01-05] MEDS ORDERED: Potassium Chloride 20 mEq ER Tab PO STA (10:51)
[2017-01-05] MEDS: Magnesium Sulfate 1 gm in D5W 1 GM/100 ML BAG IVPB SCH ×2 (11:12→13:27)
--- NOTE | 2017-01-06 07:34 | CP.PCM.PN ---
Addendum entered and electronically signed by Kim Lozada DO 01/06/17 17: 59: Crestor held due to elevated LFTs on admission. LFTs trending down. Will restart Crestor tomorrow. Original Note: <Kim Lozada - Last Filed: 01/06/17 14:09> Subjective - Date & Time of Evaluation Date of Evaluation: 01/06/17 Time of Evaluation: 07:33 - Subjective Subjective: Patient seen and examined at bedside. No acute events overnight per nursing. Patient for cardiac catheterization today. Patient's daughter is present at bedside. She notes patient had prior cardiac catheterization several years ago. Informed daughter that patient will need a repeat colonoscopy with Dr. Holland. Patient continues to have pain to right rib cage. She denies difficulty breathing and is compliant with using incentive spirometry. She denies chest pain, palpitations, dizziness, abdominal pain, nausea, vomiting, diarrhea, constipation, and dysuria. Objective - Vital Signs/Intake and Output Vital Signs (last 24 hours): Temp Pulse Resp BP Pulse Ox 98.8 F 68 20 115/60 95 01/05/17 23:30 01/05/17 23:30 01/05/17 23:30 01/05/17 23:30 01/05/17 23:30 Intake and Output: 01/06/17 01/06/17 06:59 18:59 Intake Total 520 Balance 520 - Medications Medications: Current Medications Albuterol/Ipratropium (Duoneb 3 Mg/0.5 Mg (3 Ml) Ud) 3 ml INH RBID [facility] Last Admin: 01/05/17 19:41 Dose: 3 ml Clopidogrel Bisulfate (Plavix) 75 mg PO DAILY [facility] Last Admin: 01/05/17 09:44 Dose: 75 mg Donepezil HCl (Aricept) 10 mg PO HS [facility] Last Admin: 01/05/17 21:15 Dose: 10 mg Escitalopram Oxalate (Lexapro) 20 mg PO DAILY [facility] Last Admin: 01/05/17 09:44 Dose: 20 mg Famotidine (Pepcid) 20 mg PO DAILY [facility] Last Admin: 01/05/17 09:44 Dose: 20 mg Ursodiol (Actigall) 300 mg PO BID [facility] Last Admin: 01/05/17 17:51 Dose: 300 mg - Labs Labs: 01/05/17 09:26 05/03/17 09:26 PT 12.3 SECONDS (9.7-12.2) H 01/03/17 07:24 INR 1.1 01/03/17 07:24 APTT 30 SECONDS (21-34) 01/03/17 07:24 - Constitutional Appears: Non-toxic, No Acute Distress - Head Exam Head Exam: ATRAUMATIC, NORMAL INSPECTION, NORMOCEPHALIC - Eye Exam Eye Exam: EOMI, Normal appearance, PERRL - ENT Exam ENT Exam: Mucous Membranes Moist - Neck Exam Neck Exam: Full ROM, Normal Inspection - Respiratory Exam Respiratory Exam: Clear to Ausculation Bilateral, NORMAL BREATHING PATTERN. absent: Rales, Rhonchi, Wheezes - Cardiovascular Exam Cardiovascular Exam: +S1, +S2. absent: Bradycardia, Tachycardia - GI/Abdominal Exam GI & Abdominal Exam: Soft, Normal Bowel Sounds. absent: Distended, Firm, Tenderness - Extremities Exam Extremities Exam: Normal Inspection. absent: Pedal Edema, Tenderness - Back Exam Back Exam: NORMAL INSPECTION - Neurological Exam Neurological Exam: Alert, Awake, Oriented x3 - Psychiatric Exam Psychiatric exam: Normal Affect, Normal Mood - Skin Skin Exam: Intact, Normal Color Assessment and Plan - Assessment and Plan (Free Text) Assessment: Syncope Cardiogenic vs. Neurogenic vs. Polypharmacy vs. Anemia vs. Hypoglycemia vs. Infection Cardiogenic For cardiac catheterization to evaluate for possible coronary artery stenosis. Troponin I <0.0120, MAG Panel negative x 3 EKG: NSR at rate of 74, left axis deviation Track Manager, Dr. Lopez, evaluated patient. If stenosis not detected on cardiac cath, patient may need implantable loop recorder. Patient had Shira Scan stress test in [address] Lopez which appears to have been normal. Dr. Lopez to examine patient tomorrow. Negative for orthostatics Blood pressure stable at 120/76 Hold home anti-hypertensive agent and diuretic - Valsartan 80 mg po daily and Hydrochlorothiazide 12.5 mg po daily Echocardiogram - The left ventricle systolic function is normal. The EF is >70% . No aortic regurgitation is present. There is no mitral valve regurgitation noted. There is mild tricuspid regurgitation and pulmonary hypertension. There is no pulmonic valvular regurgitation. Carotid Doppler - negative Neurogenic Plan for MRI with and without contrast to further evaluate possible ependymoma Head CT: No acute intracranial pathology identified Consider seizure as patient had loss of urine and vomitus prolactin 17.7 HIV - negative, B12 419, Folate 9.3, RPR - nonreactive Neurology Consulted, Dr. Lopez, help appreciated MRA Head: Normal Head/Brain MRA MRA Neck: No evidence of hemodynamically significant stenosis in the carotid arteries at the neck. Brain MRI: age-related atrophy and chronic white matter ischemic changes. No evidence of acute intracranial abnormality. Small benign-appearing right parotid gland cyst seen measuring 11 mm. 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 Will follow-up with Dr. Lopez in regards to further inpatient evaluation with MRI with contrast. Seizure precautions, Aspiration precautions, Fall precautions Polypharmacy Pressure 157/71. Consider restarting anti-hypertensive agents Hold antihypertensive agents as above Hold hypoglycemic agents - Metformin 500 mg po daily and Januvia 100 mg po daily Hold Mirtazapine 15 mg po HS Microcytic Anemia Stable Hemoglobin/Hematocrit 10.4/32.2 MCV 77.4 Admits to dark stools f/u Iron studies - Iron 67, TIBC 308, % Saturation 22, Ferritin 85.7, Haptoglobin elevated 286, Reticulocyte count 1.3 FOBT - negative GI consulted, Dr. Peña, help appreciated -No overt GI bleed. Patient to follow- up as outpatient on 01/16. Recommend continuing PPI. Recent colonoscopy for colonic polyps but needs repeat as patient could not tolerate prep due to emesis Patient had recent EGD. Requested EGD/Colonoscopy report from GI, Dr. Andres Holland: Per faxed medical records: Colonoscopy (11/29/16): preparation of colon non-satisfactory. Patient will require repeat colonoscopy as outpatient with Dr. Holland to evaluate for GI bleed. EGD bx: stomach antrum (11/22/16): gastric mucosa with mild chronic inflammation and reactive change. Negative for intestinal metaplasia. Immunostain for H. pylori negative. Gastritis. Patient will require outpatient referral to [employer] for further characterization of microcytic anemia. Hypoglycemia Sugar well controlled with hypoglycemic agents held currently not hypoglycemic Hold hypoglycemic agents Accuchecks hemoglobin a1c 6.1 Possible Infection No leukocytosis CXR: no acute pulmonary disease UA: negative, follow-up culture Right Rib Fracture Ice packs to rib Encouraged to use incentive spirometer q1h, out of bed and into chair Continue Duoneb inhaler BID MARCIAL Discontinued Normal Saline IV @75cc CXR: Mildly displaced lateral 11th rib fracture, appears acute. Hip X-ray: No acute displaced fracture or dislocation evident. Ribs with Chest X-Ray: Displaced rib fracture at the lateral right lower chest, possibly the right lateral 9th rib. No evidence of pneumothorax. Consult Orthopedic Surgeon, Dr. Awad, help appreciated. Liver Disease Patient follows with GI, Dr. Holland. Dr. Peña consulted. Follow-up recommendations. Transaminitis - AST/ALT: 50/51 , improving Alkaline Phosphatase 276 Ammonia <9L GGT 147 Hepatitis Panel - negative HIV negative Abdominal US: Two solid echogenic masses within the liver measuring up to 3.8 centimeters in the right hepatic lobe. These are of uncertain clinical etiology and correlation with a multiphasic CT or MR scan is recommended to better evaluate these lesions and exclude underlying neoplasm. Fatty infiltration of the liver. Cholelithiasis.Prominent common bile duct measuring 9 millimeters. Limited visualization of the pancreas and spleen. 2.5 centimeter upper pole left renal cyst. Incidentally noted is a prominent lymph node seen adjacent to the pancreas measuring up to 1.9 centimeters. Ordered MRI with contrast of Abdomen/Pelvis to better evaluate liver masses. Requested reports from Dr. Holland (GI) from [facility] Improved Monitor Dysphagia bedside swallow evaluation performed Patient tolerating solids Heart Healthy Diet - Mod Consistent Carbs History of Dementia Continue on home medication Aricept 10 mg po HS Prophylaxis VTE CI due to GI bleed GI: continue home medication Dexilant 30 mg po daily SCDs PT/OT evaluation <Asael Pearson - Last Filed: 01/07/17 08:46> Objective - Vital Signs/Intake and Output Vital Signs (last 24 hours): Temp Pulse Resp BP Pulse Ox 98.1 F 82 20 122/71 95 01/07/17 07:00 01/07/17 07:00 01/07/17 07:00 01/07/17 07:00 01/07/17 07:00 Intake and Output: 01/07/17 01/07/17 06:59 18:59 Intake Total 840 Balance 840 - Medications Medications: Current Medications Albuterol/Ipratropium (Duoneb 3 Mg/0.5 Mg (3 Ml) Ud) 3 ml INH RBID [facility] Last Admin: 01/07/17 07:28 Dose: 3 ml Clopidogrel Bisulfate (Plavix) 75 mg PO DAILY [facility] Last Admin: 01/06/17 09:59 Dose: 75 mg Donepezil HCl (Aricept) 10 mg PO HS [facility] Last Admin: 01/06/17 20:59 Dose: 10 mg Escitalopram Oxalate (Lexapro) 20 mg PO DAILY [facility] Last Admin: 01/06/17 09:55 Dose: 20 mg Famotidine (Pepcid) 20 mg PO DAILY [facility] Last Admin: 01/06/17 09:55 Dose: 20 mg Ursodiol (Actigall) 300 mg PO BID [facility] Last Admin: 01/06/17 17:48 Dose: 300 mg - Labs Labs: 01/06/17 07:23 01/06/17 07:23 PT 12.3 SECONDS (9.7-12.2) H 01/03/17 07:24 INR 1.1 01/03/17 07:24 APTT 30 SECONDS (21-34) 01/03/17 07:24 Attending/Attestation - Attestation I have personally seen and examined this patient.: Yes I have fully participated in the care of the patient.: Yes I have reviewed all pertinent clinical information, including history, physical exam and plan: Yes Notes (Text): 01/07/17 08:43 This patient was seen and examined at 1 PM with Daughter present. History, Physical, Assessment and Plan were thoroughly gone over with the Medication Coordinator. If blood pressure continues to have higher readings, then restart patient's Valsartan. I do not recommend continuation of the HCTZ. If the LFTs normalize then start Crestor on 01/07/17. Switch to Simvastatin upon discharge. Asael Pearson D.O.
[2017-01-06 07:35] LABS: BASO # 0.1 K/uL (0.0-0.2); BASO % 0.7 % (0.0-2.0); EOS # 0.2 K/uL (0.0-0.7); EOS % 2.9 % (0.0-4.0); HEMATOCRIT 32.5 % (34.0-47.0); LYMPH # 2.1 K/uL (1.0-4.3); LYMPH % 28.9 % (20.0-40.0); MEAN CELL VOLUME 77.7 fL (81.0-99.0); MEAN CORPUSCULAR HEMOGLOBIN 24.7 pg (27.0-31.0); MEAN CORPUSCULAR HGB CONC 31.7 g/dL (33.0-37.0); MEAN PLATELET VOLUME 8.3 fL (7.2-11.7); MONO # 0.6 K/uL (0.0-0.8); MONO % 8.8 % (0.0-10.0); RED CELL DISTRIBUTION WIDTH 16.7 % (11.5-14.5); WHITE BLOOD COUNT 7.4 K/uL (4.8-10.8)
[2017-01-06] MEDS: Albuterol-Ipratrop 3 mg / 0.5 (3 ml) UD INH SCH ×2 (07:37→19:40)
[2017-01-06 07:55] LABS: CHLORIDE 103 mmol/L (98-107); SODIUM 140 mmol/L (132-148)
[2017-01-06 07:56] LABS: POTASSIUM 4.3 mmol/L (3.6-5.2)
[2017-01-06 07:58] LABS: AST/SGOT 41 U/L (14-36); BILIRUBIN,TOTAL 0.6 mg/dL (0.2-1.3); CARBON DIOXIDE 26 mmol/L (22-30); GFR AFRICAN-AMERICAN > 60
[2017-01-06 07:59] LABS: ALB/GLOB RATIO 0.9 (1.0-2.1); ALKALINE PHOSPHATASE 269 U/L (38-126); ALT/SGPT 41 U/L (9-52); BLOOD UREA NITROGEN 7 mg/dL (7-17); CALCIUM 9.2 mg/dl (8.6-10.4); GLUCOSE,RANDOM 90 mg/dL (65-105); TOTAL PROTEIN 6.9 g/dL (6.3-8.3)
--- NOTE | 2017-01-06 13:46 | CP.PCM.PN ---
Subjective - Date & Time of Evaluation Date of Evaluation: 01/06/17 Time of Evaluation: 07:44 - Subjective Subjective: Patient still complaining of right sided rib pain, slightly improved. Still denies pain in other extremities. No new complaints. No difficulty breathing, SOB, cough. Review of Systems - Review of Systems All systems: reviewed and no additional remarkable complaints except - Cardiovascular Cardiovascular: As Per HPI - Respiratory Respiratory: As Per HPI - Musculoskeletal Musculoskeletal: As Par HPI - Integumentary Integumentary: As Per HPI - Hematologic/Lymphatic Hematologic: UNREMARKABLE Objective - Vital Signs/Intake and Output Vital Signs (last 24 hours): Temp Pulse Resp BP Pulse Ox 98.0 F 76 20 134/70 96 01/06/17 07:02 01/06/17 08:03 01/06/17 07:02 01/06/17 07:02 01/06/17 07:02 Intake and Output: 01/06/17 01/06/17 06:59 18:59 Intake Total 520 Balance 520 - Medications Medications: Current Medications Albuterol/Ipratropium (Duoneb 3 Mg/0.5 Mg (3 Ml) Ud) 3 ml INH RBID [facility] Last Admin: 01/06/17 07:37 Dose: 3 ml Clopidogrel Bisulfate (Plavix) 75 mg PO DAILY [facility] Last Admin: 01/06/17 09:59 Dose: 75 mg Donepezil HCl (Aricept) 10 mg PO HS [facility] Last Admin: 01/05/17 21:15 Dose: 10 mg Escitalopram Oxalate (Lexapro) 20 mg PO DAILY [facility] Last Admin: 01/06/17 09:55 Dose: 20 mg Famotidine (Pepcid) 20 mg PO DAILY [facility] Last Admin: 01/06/17 09:55 Dose: 20 mg Ursodiol (Actigall) 300 mg PO BID [facility] Last Admin: 01/06/17 09:55 Dose: 300 mg - Labs Labs: 01/06/17 07:23 01/06/17 07:23 PT 12.3 SECONDS (9.7-12.2) H 01/03/17 07:24 INR 1.1 01/03/17 07:24 APTT 30 SECONDS (21-34) 01/03/17 07:24 - Constitutional Appears: Well, No Acute Distress - Respiratory Exam Respiratory Exam: NORMAL BREATHING PATTERN Additional comments: no swelling or ecchymosis noted, TTP lower right ribs laterally and anteriorly - Cardiovascular Exam Additional comments: +DP/PT pulses BLE - Extremities Exam Additional comments: calves sfot NT neg homans sensation intact BLE - Neurological Exam Neuro motor strength exam: Left Lower Extremity: 5 (+ROM ankle DF/PF, full AROM left hip.knee/ankle) - Psychiatric Exam Psychiatric exam: Normal Affect, Normal Mood - Skin Skin Exam: Dry, Intact, Normal Color, Warm Assessment and Plan (1) Fracture of rib of right side Assessment & Plan: tolerating incentive spirometry well O2 sat improved, on RA xray report of rib series again demonstrates right sided rib fracture, no pneumothorax recommend thoracic consult in event patient shows any signs of lung injury, as this is outside scope of orthopedics above d/w Dr. Potter, agrees with above will s/o as no ortho issues, recommend continue IS/OOB as tolerated when medical stable Status: Acute Radiology Interpretation - Radiology Interpretation #2 Interpretation: Patient Name / ID : SERENA RICHMOND / [id number] Exam Date : 01/03/2017 12:58:04 ( Approved ) Study Comment : Sex / Age : F / 76Y Creator : Leno Carolina MD Dictator : Leno Carolina MD Block Chopper Hand : Primary Education Professor : Leno Carolina MD Approver2 : Report Date : 01/03/2017 15:45:24 My Comment : Chest x-ray and right ribs four views History: Rib fracture. Comparison: None available. Findings: Moderate venous congestion. Right hilar prominence. Cardiomegaly. Degenerative changes in the spine with paravertebral osteophytes. Transverse displaced fracture of a lower right lateral rib, possibly the 9th rib. Scoliotic curvature in the spine. Impression: Displaced rib fracture at the lateral right lower chest, possibly the right lateral 9th rib. No evidence of pneumothorax. Additional findings as above.
[2017-01-06] MEDS ORDERED: Midazolam 2 MG/2 ML VIAL ONE (15:10)
[2017-01-07] MEDS: Albuterol-Ipratrop 3 mg / 0.5 (3 ml) UD INH SCH ×2 (07:28→19:35)
[2017-01-07] MEDS ORDERED: Gadodiamide 287 MG/ML VIAL (15ML) IV ONE (10:35)
--- NOTE | 2017-01-07 11:52 | CP.PCM.CON ---
History of Present Illness - History of Present Illness History of Present Illness: Palliative consult requested by Neville MEANS Reason: Goals of care discussion Patient is a 76 yo lady admitted after found unresponsive in her kitchen by the neighbor. Patient reports having at least 6 syncopal episodes in the last month, without warning signs. Patient also reports food intolerance, vomiting food and loosing about 20 lb in one month. Patient fallowed up with GI as an outpatient and colonosopy was attempted. Due to uncompleted colonoscopy prep the results were limited. Some fibroids were found. The new colonoscopy is planned here as an inpatient. After fall at home X Ray reported the right 9th rib transverse fx. patient report pain to that area. The endosopy done as an outpatient reported the beginning of liver cirrhosis. On 01/06/2017 cardiocath was done to rule out cardiac artery stenosis. Patient has a chronic ear infection that most likely contributes to her syncopies. PMH: DM, HTN, chronic ear infection, Alzheimers, on Aricept Soc. hx: Lives alone, , son lives in the area Fam. Hx: Unknown Review of Systems - Constitutional Constitutional: Weight Loss - EENT Eyes: absent: As Per HPI, Blind Spots, Blurred Vision, Change in Vision, Decreased Night Vision, Diplopia, Discharge, Dry Eye, Exophthalmos, Floaters, Irritation, Itchy Eyes, Loss of Peripheral Vision, Pain, Photophobia, Requires Corrective Lenses, Sees Flashes, Spots in Vision, Tunnel Vision, Other Visual Disturbances, Loss of Vision, Other Ears: Abnormal Hearing Nose/Mouth/Throat: absent: As Per HPI, Epistaxis, Nasal Congestion, Nasal Discharge, Nasal Obstruction, Nasal Trauma, Nose Pain, Post Nasal Drip, Sinus Pain, Sinus Pressure, Bleeding Gums, Change in Voice, Dental Pain, Dry Mouth, Dysphagia, Halitosis, Hoarsness, Lip Swelling, Mouth Lesions, Mouth Pain, Odynophagia, Sore Throat, Throat Swelling, Tongue Swelling, Facial Pain, Neck Pain, Neck Mass, Other - Breasts Breasts: absent: As Per HPI, Change in Shape, Mass, Pain, Nipple Discharge, Nipple Inversion, Skin Changes, Swelling, Other - Cardiovascular Cardiovascular: Lightheadedness, Syncope - Respiratory Respiratory: absent: As Per HPI, Cough, Dyspnea, Hemoptysis, Dyspnea on Exertion , Wheezing, Snoring, Stridor, Pain on Inspiration, Chest Congestion, Excessive Mucous Production, Change in Mucous Color, Pain with Coughing, Other - Gastrointestinal Gastrointestinal: Nausea, Vomiting - Genitourinary Genitourinary: Flank Pain - Reproductive: Female Reproductive:Female: Post Menopausal - Menstruation Menstruation: Post Menopausal - Musculoskeletal Additional comments: left rib cage pain, S/P rib fracture - Integumentary Integumentary: absent: As Per HPI, Acne, Alopecia, Bleeding Lesions, Change in Hair, Change in Nails, Change in Pigmentation, Changing Lesions, Dry Skin, Erythema, Furuncle, Hirsutism, Lesions, New Lesions, Non-Healing Lesions, Photosensitivity, Pruritus, Rash, Skin Pain, Skin Ulcer, Sores, Striae, Swelling , Unusual Bruising, Wounds, Jaundice, Other - Neurological Neurological: Frequent Falls, Syncope, Vertigo - Psychiatric Psychiatric: absent: As Per HPI, Abnormal Sleep Pattern, Anhedonia, Anxiety, Auditory Hallucinations, Behavioral Changes, Change in Appetite, Change in Libido, Confusion, Depression, Difficulty Concentrating, Hallucinations, Homicidal Ideation, Hopelessness, Irritability, Memory Loss, Mood Swings, Panic Attacks, Paranoia, Suicidal Ideation, Visual Hallucinations, Tactile Hallucinations, Other - Endocrine Endocrine: absent: As Per HPI, Change in Body Appearance, Change in Libido, Cold Intolorance, Deepening of Voice, Excessive Sweating, Fatigue, Flushing, Heat Intolorance, Increase in Ring/Shoe/Hat Size, Palpitations, Polydipsia, Polyphagia, Polyuria, Other - Hematologic/Lymphatic Hematologic: absent: As Per HPI, Easy Bleeding, Easy Bruising, Lymphadenopathy, Other Past Patient History - Past Medical History & Family History Past Medical History?: Yes Past Family History: Reviewed and not pertinent - Past Social History Smoking Status: Former Smoker - CARDIAC Hx Hypertension: Yes - PULMONARY Hx Respiratory Disorders: Yes Hx Asthma: Yes Hx Sleep Apnea: Yes (C-PAP) Other/Comment: Claimed she does not use C-PAP anymore "I don't need it anymore" - NEUROLOGICAL Hx Neurological Disorder: Yes Hx Alzheimer's Disease: (MEMORY LOSS) Other/Comment: Claimed mind is clear now "I was given medication"my mind is clear now" - HEENT Hx HEENT Problems: Yes Hx Cataracts: Yes - RENAL Hx Chronic Kidney Disease: Yes Hx Kidney Stones: Yes (PASSED NO SURGERY) - ENDOCRINE/METABOLIC Hx Endocrine Disorders: Yes Hx Diabetes Mellitus Type 2: Yes - HEMATOLOGICAL/ONCOLOGICAL Hx Blood Disorders: Yes Hx Anemia: Yes - INTEGUMENTARY Hx Dermatological Problems: No - MUSCULOSKELETAL/RHEUMATOLOGICAL Hx Arthritis: Yes - GASTROINTESTINAL Hx Gastritis: Yes - GENITOURINARY/GYNECOLOGICAL Hx Genitourinary Disorders: Yes (HX.STONES) Hx Bladder Stone: Yes - PSYCHIATRIC Hx Psychophysiologic Disorder: Yes Hx Depression: Yes Hx Substance Use: No - SURGICAL HISTORY Hx Surgeries: Yes Hx Orthopedic Surgery: Yes (Both arms -after the fall around 2 years ago) Hx Tonsillectomy: Yes - ANESTHESIA Hx Anesthesia: Yes Hx Anesthesia Reactions: No Hx Malignant Hyperthermia: No Has any member of the family had a problem w/ anesthesia?: No Meds Allergies/Adverse Reactions: Allergies Allergy/AdvReac Type Severity Reaction Status Date / Time No Known Allergies Allergy Verified 01/02/17 11:34 - Medications Medications: Current Medications Albuterol/Ipratropium (Duoneb 3 Mg/0.5 Mg (3 Ml) Ud) 3 ml INH RBID [facility] Last Admin: 01/07/17 07:28 Dose: 3 ml Clopidogrel Bisulfate (Plavix) 75 mg PO DAILY [facility] Last Admin: 01/07/17 09:51 Dose: 75 mg Donepezil HCl (Aricept) 10 mg PO HS [facility] Last Admin: 01/06/17 20:59 Dose: 10 mg Escitalopram Oxalate (Lexapro) 20 mg PO DAILY [facility] Last Admin: 01/07/17 09:51 Dose: 20 mg Famotidine (Pepcid) 20 mg PO DAILY [facility] Last Admin: 01/07/17 09:51 Dose: 20 mg Losartan Potassium (Cozaar) 50 mg PO DAILY [facility] Last Admin: 01/07/17 11:06 Dose: 50 mg Ursodiol (Actigall) 300 mg PO BID [facility] Last Admin: 01/07/17 09:51 Dose: 300 mg Physical Exam - Constitutional Appears: No Acute Distress - Head Exam Head Exam: ATRAUMATIC, NORMAL INSPECTION, NORMOCEPHALIC - Eye Exam Eye Exam: EOMI, Normal appearance, PERRL Pupil Exam: NORMAL ACCOMODATION, PERRL - ENT Exam ENT Exam: Mucous Membranes Moist, Normal Exam - Neck Exam Neck exam: Positive for: Normal Inspection - Respiratory Exam Respiratory Exam: Clear to Auscultation Bilateral, NORMAL BREATHING PATTERN - Cardiovascular Exam Cardiovascular Exam: REGULAR RHYTHM, +S1, +S2 - GI/Abdominal Exam GI & Abdominal Exam: Normal Bowel Sounds, Soft - Rectal Exam Rectal Exam: Deferred - Extremities Exam Extremities exam: Positive for: normal inspection - Back Exam Back exam: CVA tenderness (R), NORMAL INSPECTION - Neurological Exam Neurological exam: Alert, Oriented x3 - Psychiatric Exam Psychiatric exam: Normal Affect, Normal Mood - Skin Skin Exam: Normal Color, Warm Results - Vital Signs Recent Vital Signs: Last Vital Signs Temp 97.7 F 01/07/17 11:09 Pulse 71 01/07/17 11:13 Resp 18 01/07/17 11:09 BP 129/70 01/07/17 11:09 Pulse Ox 96 01/07/17 11:09 - Labs Result Diagrams: 01/06/17 07:23 01/06/17 07:23 Labs: Laboratory Results - last 24 hr 01/06/17 01/07/17 21:22 06:28 POC Glucose (mg/dL) 106 114 H Assessment & Plan - Assessment and Plan (Free Text) Assessment: palliative consult Code status Full Code. No advance directive on chart. PPS 40% I reviewed medical records, all diagnostic studies, examined and interviewed patient in the bed and discussed goals of care of patient and her daughter at bed side. Patient is alert, oriented X 3 in no acute distress. patient denies nausea and reports tolerating the food. denies constipation. There is mild pain of 6/10 at rest to right side of abdomen. patient describes it as pain caused by the " fractured bone" after the fall. I suggested patient reports her pain to nurse and gets pain meds as ordered. patient stated understanding. We discussed the most recent diagnostic studies results. Patient feels ready to be discharged. Patient is aware of risks involved if she stayed home alone and admits need for assistance with ADLs.. She does not want to be admitted to bed bug exterminator facility but agrees with PT at [facility]. Daughter Kellie supported her decision. The patient feels that a few hours of home care music therapist help at home should be sufficient to support her safety at this point. She also would want to use walker at home for increased safety with ambulation. Impression * Patient is S/P fall at home and right rib Fx * Acute pain to right abdomen * Unwanted weight loss due to food intolerance at home. Patient reports improved appetite since admission and denies nausea/ vomiting * Frequent falls at home secondary to dizziness and syncopy * Patient is aware of her need for assistance at home for increased safety * Patient is against bed bug exterminator placement * Patient would like walker at home for ambulation Suggestion * Reinforce pain meds PRN to promote pain relief and comfort * PT eval for ambulation, and use of walker at home * Discharge planning to [facility] * Evaluate for appropriateness of home care music therapist as patient is debilitated and needs assistance with ADLs. palliative care will fallow up with patient PRN. Thank abby for involving me in care of this patient.
--- NOTE | 2017-01-07 12:02 | MRI ---
PROCEDURE: MRI of the brain with contrast. 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 Coronal T2 thin cuts through the temporal lobes and ventricles were also obtained. FINDINGS: There is no evidence of enhancing mass lesion in the ventricles. No evidence of enhancing mass lesion in the ependymal region. The ventricles are normal in size and shape for the patient's age. No evidence of enhancing mass lesion in the brain. No evidence of intracranial collection mass effect or midline shift. IMPRESSION: No evidence of enhancing mass lesion in the lateral ventricles or periventricular region. No evidence of enhancing mass lesion in the brain.
[2017-01-07 12:07] LABS: BASO % 0.6 % (0.0-2.0); EOS # 0.1 K/uL (0.0-0.7); EOS % 1.8 % (0.0-4.0); HEMATOCRIT 30.8 % (34.0-47.0); LYMPH % 27.9 % (20.0-40.0); MEAN CELL VOLUME 78.7 fL (81.0-99.0); MEAN CORPUSCULAR HEMOGLOBIN 25.2 pg (27.0-31.0); MEAN CORPUSCULAR HGB CONC 32.1 g/dL (33.0-37.0); MEAN PLATELET VOLUME 7.9 fL (7.2-11.7); MONO # 0.6 K/uL (0.0-0.8); MONO % 8.6 % (0.0-10.0); RED CELL DISTRIBUTION WIDTH 16.4 % (11.5-14.5); WHITE BLOOD COUNT 7.2 K/uL (4.8-10.8)
[2017-01-07 12:17] LABS: CHLORIDE 96 mmol/L (98-107); POTASSIUM 3.8 mmol/L (3.6-5.2); SODIUM 137 mmol/L (132-148)
[2017-01-07 12:19] LABS: BILIRUBIN,TOTAL 0.8 mg/dL (0.2-1.3); GFR AFRICAN-AMERICAN > 60
[2017-01-07 12:20] LABS: ALB/GLOB RATIO 0.9 (1.0-2.1); ALKALINE PHOSPHATASE 279 U/L (38-126); ALT/SGPT 33 U/L (9-52); AST/SGOT 43 U/L (14-36); BLOOD UREA NITROGEN 12 mg/dL (7-17); CARBON DIOXIDE 30 mmol/L (22-30); GLUCOSE,RANDOM 100 mg/dL (65-105); MAGNESIUM 1.8 mg/dL (1.6-2.3); TOTAL PROTEIN 7.1 g/dL (6.3-8.3)
--- NOTE | 2017-01-07 14:51 | CP.PCM.PN ---
Addendum entered and electronically signed by Kim Lozada DO 01/07/17 16: 24: Patient accepted to [facility]. Patient to discontinue home medication Metformin as blood sugar has been controlled and she also has a history of cirrhosis. Patient can be discharged tomorrow after Abd/Pelvis MRI. Plan to follow-up EEG report as not yet read. Original Note: <Kim Lozada - Last Filed: 01/07/17 14:48> Subjective - Date & Time of Evaluation Date of Evaluation: 01/07/17 Time of Evaluation: 14:48 - Subjective Subjective: Patient seen and examined at bedside. Patient s/p cardiac catheterization. She denies pain/discomfort to left inguinal cath site. Patient states pain to her right rib cage has improved. She is being compliant with IS. Patient denies chest pain, palpitations, shortness of breath and cough. Patient is tolerating diet well. She denies abdominal pain, nausea, and vomiting. She denies constipation and diarrhea. Objective - Vital Signs/Intake and Output Vital Signs (last 24 hours): Temp Pulse Resp BP Pulse Ox 97.7 F 68 18 129/70 96 01/07/17 11:09 01/07/17 12:01 01/07/17 11:09 01/07/17 11:09 01/07/17 11:09 Intake and Output: 01/07/17 01/07/17 06:59 18:59 Intake Total 840 Balance 840 - Medications Medications: Current Medications Albuterol/Ipratropium (Duoneb 3 Mg/0.5 Mg (3 Ml) Ud) 3 ml INH RBID [facility] Last Admin: 01/07/17 07:28 Dose: 3 ml Clopidogrel Bisulfate (Plavix) 75 mg PO DAILY [facility] Last Admin: 01/07/17 09:51 Dose: 75 mg Donepezil HCl (Aricept) 10 mg PO HS [facility] Last Admin: 01/06/17 20:59 Dose: 10 mg Escitalopram Oxalate (Lexapro) 20 mg PO DAILY [facility] Last Admin: 01/07/17 09:51 Dose: 20 mg Famotidine (Pepcid) 20 mg PO DAILY [facility] Last Admin: 01/07/17 09:51 Dose: 20 mg Losartan Potassium (Cozaar) 50 mg PO DAILY [facility] Last Admin: 05/05/17 11:06 Dose: 50 mg Rosuvastatin Calcium (Crestor) 10 mg PO HS [facility] Ursodiol (Actigall) 300 mg PO BID [facility] Last Admin: 01/07/17 09:51 Dose: 300 mg - Labs Labs: 01/07/17 12:00 01/07/17 12:00 PT 12.3 SECONDS (9.7-12.2) H 01/03/17 07:24 INR 1.1 01/03/17 07:24 APTT 30 SECONDS (21-34) 01/03/17 07:24 - Constitutional Appears: Non-toxic, No Acute Distress - Head Exam Head Exam: ATRAUMATIC, NORMAL INSPECTION, NORMOCEPHALIC - Eye Exam Eye Exam: EOMI, Normal appearance, PERRL - ENT Exam ENT Exam: Mucous Membranes Moist, Normal Exam - Neck Exam Neck Exam: Full ROM, Normal Inspection - Respiratory Exam Respiratory Exam: Clear to Ausculation Bilateral, NORMAL BREATHING PATTERN. absent: Rales, Rhonchi, Wheezes - Cardiovascular Exam Cardiovascular Exam: +S1, +S2. absent: Bradycardia, Tachycardia - GI/Abdominal Exam GI & Abdominal Exam: Soft, Normal Bowel Sounds. absent: Firm, Guarding, Tenderness - Extremities Exam Extremities Exam: Full ROM, Normal Inspection. absent: Pedal Edema, Tenderness - Back Exam Back Exam: NORMAL INSPECTION - Neurological Exam Neurological Exam: Alert, Awake, Oriented x3 Neuro motor strength exam: Left Upper Extremity: 5, Right Upper Extremity: 5, Left Lower Extremity: 5, Right Lower Extremity: 5 - Psychiatric Exam Psychiatric exam: Normal Affect, Normal Mood Assessment and Plan - Assessment and Plan (Free Text) Assessment: Syncope Cardiogenic vs. Neurogenic vs. Polypharmacy vs. Anemia vs. Hypoglycemia vs. Infection Cardiogenic Patient s/p cardiac catheterization. Will follow-up findings with Dr. Lopez. Troponin I <0.0120, MAG Panel negative x 3 EKG: NSR at rate of 74, left axis deviation Supervisor Prepress, Dr. Lopez, evaluated patient. If stenosis not detected on cardiac cath, patient may need implantable loop recorder. Patient to follow-up as an outpatient. Patient had Shira Scan stress test in [address] Lopez which appears to have been normal. Dr. Lopez to examine patient tomorrow. Negative for orthostatics Blood pressure stable at 120/76 Hold home anti-hypertensive agent and diuretic - Valsartan 80 mg po daily and Hydrochlorothiazide 12.5 mg po daily Echocardiogram - The left ventricle systolic function is normal. The EF is >70% . No aortic regurgitation is present. There is no mitral valve regurgitation noted. There is mild tricuspid regurgitation and pulmonary hypertension. There is no pulmonic valvular regurgitation. Carotid Doppler - negative Neurogenic MRI with and without contrast: No evidence of enhancing mass lesion in the lateral ventricles or periventricular region. No evidence of enhancing mass lesion in the brain. Head CT: No acute intracranial pathology identified Consider seizure as patient had loss of urine and vomitus prolactin 17.7 HIV - negative, B12 419, Folate 9.3, RPR - nonreactive Neurology Consulted, Dr. Lopez, help appreciated MRA Head: Normal Head/Brain MRA MRA Neck: No evidence of hemodynamically significant stenosis in the carotid arteries at the neck. Brain MRI: age-related atrophy and chronic white matter ischemic changes. No evidence of acute intracranial abnormality. Small benign-appearing right parotid gland cyst seen measuring 11 mm. 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 Will follow-up with Dr. Lopez in regards to further inpatient evaluation with MRI with contrast. Seizure precautions, Aspiration precautions, Fall precautions Polypharmacy Losartan 50 mg po daily restarted for hypertension Pressure 157/71. Consider restarting anti-hypertensive agents Hold antihypertensive agents as above Hold hypoglycemic agents - Metformin 500 mg po daily and Januvia 100 mg po daily Hold Mirtazapine 15 mg po HS Microcytic Anemia Stable Hemoglobin/Hematocrit 10.4/32.2 MCV 77.4 Admits to dark stools f/u Iron studies - Iron 67, TIBC 308, % Saturation 22, Ferritin 85.7, Haptoglobin elevated 286, Reticulocyte count 1.3 FOBT - negative GI consulted, Dr. Peña, help appreciated -No overt GI bleed. Patient to follow- up as outpatient on 01/16. Recommend continuing PPI. Recent colonoscopy for colonic polyps but needs repeat as patient could not tolerate prep due to emesis Patient had recent EGD. Requested EGD/Colonoscopy report from GI, Dr. Andres Holland: Per faxed medical records: Colonoscopy (11/29/16): preparation of colon non-satisfactory. Patient will require repeat colonoscopy as outpatient with Dr. Holland to evaluate for GI bleed. EGD bx: stomach antrum (11/22/16): gastric mucosa with mild chronic inflammation and reactive change. Negative for intestinal metaplasia. Immunostain for H. pylori negative. Gastritis. Patient will require outpatient referral to [facility] for further characterization of microcytic anemia. Hypoglycemia Sugar well controlled with hypoglycemic agents held currently not hypoglycemic Hold hypoglycemic agents Accuchecks hemoglobin a1c 6.1 Possible Infection No leukocytosis CXR: no acute pulmonary disease UA: negative, follow-up culture Right Rib Fracture Ice packs to rib Encouraged to use incentive spirometer q1h, out of bed and into chair Continue Duoneb inhaler BID [facility] Discontinued Normal Saline IV @75cc CXR: Mildly displaced lateral 11th rib fracture, appears acute. Hip X-ray: No acute displaced fracture or dislocation evident. Ribs with Chest X-Ray: Displaced rib fracture at the lateral right lower chest, possibly the right lateral 9th rib. No evidence of pneumothorax. Consult Orthopedic Surgeon, Dr. Awad, help appreciated. Liver Disease Patient follows with GI, Dr. Holland. Dr. Peña consulted. Follow-up recommendations. Transaminitis - improved Restart Crestor 10 mg po HS Alkaline Phosphatase 276 Ammonia <9L GGT 147 Hepatitis Panel - negative HIV negative Abdominal US: Two solid echogenic masses within the liver measuring up to 3.8 centimeters in the right hepatic lobe. These are of uncertain clinical etiology and correlation with a multiphasic CT or MR scan is recommended to better evaluate these lesions and exclude underlying neoplasm. Fatty infiltration of the liver. Cholelithiasis.Prominent common bile duct measuring 9 millimeters. Limited visualization of the pancreas and spleen. 2.5 centimeter upper pole left renal cyst. Incidentally noted is a prominent lymph node seen adjacent to the pancreas measuring up to 1.9 centimeters. Ordered MRI with contrast of Abdomen/Pelvis to better evaluate liver masses. Requested reports from Dr. Holland (GI) from [facility] Improved Monitor Dysphagia bedside swallow evaluation performed Patient tolerating solids Heart Healthy Diet - Mod Consistent Carbs History of Dementia Continue on home medication Aricept 10 mg po HS Prophylaxis VTE CI due to GI bleed GI: continue home medication Dexilant 30 mg po daily SCDs PT/OT evaluation <Skip Saldivar - Last Filed: 02/04/17 11:49> Objective - Vital Signs/Intake and Output Vital Signs (last 24 hours): Temp Pulse Resp BP Pulse Ox 98.9 F 78 20 130/76 100 01/08/17 13:42 01/08/17 13:42 01/08/17 13:42 01/08/17 13:42 01/08/17 13:42 - Labs Labs: 01/08/17 07:16 01/08/17 07:16 PT 12.3 SECONDS (9.7-12.2) H 01/03/17 07:24 INR 1.1 01/03/17 07:24 APTT 30 SECONDS (21-34) 01/03/17 07:24 Attending/Attestation - Attestation I have personally seen and examined this patient.: Yes I have fully participated in the care of the patient.: Yes I have reviewed all pertinent clinical information, including history, physical exam and plan: Yes Notes (Text): Patient seen and examined with the resident. Agree with the resident's evaluation, assessment and plan. Syncope workup in progress.
[2017-01-08 07:36] LABS: BASO % 0.4 % (0.0-2.0); EOS # 0.2 K/uL (0.0-0.7); HEMATOCRIT 32.1 % (34.0-47.0); LYMPH % 25.7 % (20.0-40.0); MEAN CELL VOLUME 77.9 fL (81.0-99.0); MEAN CORPUSCULAR HEMOGLOBIN 25.3 pg (27.0-31.0); MEAN CORPUSCULAR HGB CONC 32.5 g/dL (33.0-37.0); MEAN PLATELET VOLUME 8.1 fL (7.2-11.7); MONO # 0.6 K/uL (0.0-0.8); MONO % 8.3 % (0.0-10.0); RED CELL DISTRIBUTION WIDTH 16.9 % (11.5-14.5); WHITE BLOOD COUNT 7.6 K/uL (4.8-10.8)
[2017-01-08 07:40] LABS: CHLORIDE 98 mmol/L (98-107); POTASSIUM 4.2 mmol/L (3.6-5.2); SODIUM 140 mmol/L (132-148)
[2017-01-08 07:42] LABS: AST/SGOT 72 U/L (14-36); BILIRUBIN,TOTAL 0.7 mg/dL (0.2-1.3); GFR AFRICAN-AMERICAN > 60
[2017-01-08 07:43] LABS: ALB/GLOB RATIO 0.9 (1.0-2.1); ALKALINE PHOSPHATASE 314 U/L (38-126); ALT/SGPT 48 U/L (9-52); BLOOD UREA NITROGEN 13 mg/dL (7-17); CALCIUM 8.7 mg/dl (8.6-10.4); CARBON DIOXIDE 30 mmol/L (22-30); GLUCOSE,RANDOM 96 mg/dL (65-105); MAGNESIUM 1.8 mg/dL (1.6-2.3)
[2017-01-08] MEDS: Albuterol-Ipratrop 3 mg / 0.5 (3 ml) UD INH SCH (08:45)
[2017-01-08] MEDS ORDERED: Gadodiamide 287 MG/ML VIAL (15ML) IV ONE (09:36)
--- NOTE | 2017-01-08 13:21 | MRI ---
PROCEDURE: MRI Abdomen with and without contrast HISTORY: Liver mass COMPARISON: 01/03/2017. TECHNIQUE: Multisequence, multiplanar MR images of the abdomen with and without gadolinium contrast enhancement. FINDINGS: Assessment is limited by is patient motion artifact. LIVER: Re- demonstration of a roughly 2.7 centimeter ill-defined hyperintense heterogeneously enhancing T2 mass in the posterior segment right hepatic lobe. This doesn ot have a typical appearance for a hemangioma. Malignancy such as hepatocellular carcinoma is not excluded. Possibility of an abscess is also considered. GALLBLADDER: Unremarkable. SPLEEN: Unremarkable. PANCREAS: Unremarkable. ADRENALS: Unremarkable. KIDNEYS: Unremarkable. AORTA: No aneurysm. ASCITES: None. PERITONEUM: Unremarkable. LYMPH NODES: Unremarkable. OTHER FINDINGS: None. IMPRESSION: Limited by patient motion artifact. Re- demonstration of a roughly 2.7 centimeter ill-defined hyperintense T2 mass in the posterior segment right hepatic lobe. This doesn ot have a typical appearance for a hemangioma. Malignancy such as hepatocellular carcinoma is not excluded. Possibility of an abscess is also considered. 2 centimeter left upper pole renal cyst.
[2017-01-08 13:43] VITALS: BP 130/76; PULSE 78; RESP 20; TEMP 98.9; O2SAT 100
--- NOTE | 2017-01-08 14:35 | CP.PCM.DIS ---
<RaeConradMarleni H - Last Filed: 01/08/17 17:12> Provider - Provider Date of Admission: 01/02/17 14:36 Attending physician: Zoila Ruby DO Primary care physician: Dr. Armstrong Consults: Cardio - Dr. Lopez Neuro - Dr. Lopez Time Spent in preparation of Discharge (in minutes): 35 Hospital Course - Lab Results Lab Results: Micro Results 01/02/17 22:39 Urine Urine Culture - Final No Growth (<1,000 CFU/ML) Most Recent Lab Values WBC 7.6 K/uL (4.8-10.8) 01/08/17 07:16 RBC 4.12 Mil/uL (3.80-5.20) 01/08/17 07:16 Hgb 10.4 g/dL (11.0-16.0) L 01/08/17 07:16 Hct 32.1 % (34.0-47.0) L 01/08/17 07:16 MCV 77.9 fL (81.0-99.0) L 01/08/17 07:16 MCH 25.3 pg (27.0-31.0) L 01/08/17 07:16 MCHC 32.5 g/dL (33.0-37.0) L 01/08/17 07:16 RDW 16.9 % (11.5-14.5) H 01/08/17 07:16 Plt Count 419 K/uL (130-400) H 01/08/17 07:16 MPV 8.1 fL (7.2-11.7) 01/08/17 07:16 Neut % (Auto) 62.6 % (50.0-75.0) 01/08/17 07:16 Lymph % (Auto) 25.7 % (20.0-40.0) 01/08/17 07:16 [place] % (Auto) 8.3 % (0.0-10.0) 01/08/17 07:16 Eos % (Auto) 3.0 % (0.0-4.0) 01/08/17 07:16 Baso % (Auto) 0.4 % (0.0-2.0) 01/08/17 07:16 Neut # 4.7 K/uL (1.8-7.0) 01/08/17 07:16 Lymph # 2.0 K/uL (1.0-4.3) 01/08/17 07:16 [place] # 0.6 K/uL (0.0-0.8) 01/08/17 07:16 Eos # 0.2 K/uL (0.0-0.7) 01/08/17 07:16 Baso # 0.0 K/uL (0.0-0.2) 01/08/17 07:16 Retic Count 1.3 % (0.5-1.5) 01/03/17 07:24 Haptoglobin 286 mg/dL (43-212) H 01/03/17 07:24 PT 12.3 SECONDS (9.7-12.2) H 01/03/17 07:24 INR 1.1 01/03/17 07:24 APTT 30 SECONDS (21-34) 01/03/17 07:24 Sodium 140 mmol/L (132-148) 01/08/17 07:16 Potassium 4.2 mmol/L (3.6-5.2) 01/08/17 07:16 Chloride 98 mmol/L (98-107) 01/08/17 07:16 Carbon Dioxide 30 mmol/L (22-30) 01/08/17 07:16 Anion Gap 16 (10-20) 01/08/17 07:16 BUN 13 mg/dL (7-17) 01/08/17 07:16 Creatinine 0.8 MG/DL (0.7-1.2) 01/08/17 07:16 Est GFR ( Amer) > 60 01/08/17 07:16 Est GFR (Non-Af Amer) > 60 01/08/17 07:16 POC Glucose (mg/dL) 137 mg/dL (65-110) H 01/08/17 11:41 Random Glucose 96 mg/dL (65-105) 01/08/17 07:16 Hemoglobin A1c 6.1 % (4.2-6.5) 01/02/17 19:24 Calcium 8.7 mg/dl (8.6-10.4) 01/08/17 07:16 Magnesium 1.8 mg/dL (1.6-2.3) 01/08/17 07:16 Iron 67 ug/dL (37-170) 01/02/17 19:11 TIBC 285 ug/dL (250-450) 01/03/17 07:24 % Saturation 12 (20-55) L 01/03/17 07:24 Ferritin 85.7 ng/mL 01/03/17 07:24 Total Bilirubin 0.7 mg/dL (0.2-1.3) 01/08/17 07:16 GGT 147 U/L (8-78) H 01/03/17 19:45 AST 72 U/L (14-36) H D 01/08/17 07:16 ALT 48 U/L (9-52) 01/08/17 07:16 Alkaline Phosphatase 314 U/L (38-126) H 01/08/17 07:16 Ammonia < 9 umol/L (9-33) L 01/02/17 16:44 Total Creatine Kinase 35 U/L (30-135) 01/03/17 00:25 CK-MB (Mass) < 0.22 ng/mL (0.0-3.38) 01/03/17 00:25 Troponin I < 0.0120 ng/mL (0.00-0.120) 01/02/17 12:46 Troponin I, Quant < 0.0120 ng/mL (0.00-0.120) 01/03/17 00:25 NT-Pro-B Natriuret Pep 105 pg/mL (0-900) 01/02/17 19:11 Total Protein 7.0 g/dL (6.3-8.3) 01/08/17 07:16 Albumin 3.3 g/dL (3.5-5.0) L 01/08/17 07:16 Globulin 3.7 gm/dL (2.2-3.9) 01/08/17 07:16 Albumin/Globulin Ratio 0.9 (1.0-2.1) L 01/08/17 07:16 Triglycerides 132 mg/dL (0-149) 01/02/17 19:11 Cholesterol 146 mg/dL (0-199) 01/02/17 19:11 LDL Cholesterol Direct 69 mg/dL (0-129) 01/02/17 19:11 HDL Cholesterol 35 mg/dL (30-70) 01/02/17 19:11 Lipase 118 U/L (23-300) 01/02/17 19:11 Vitamin B12 419 pg/mL (239-931) 01/03/17 07:24 Folate 9.3 ng/mL 01/03/17 07:24 Prolactin 17.7 ng/mL (3.0-18.9) 01/02/17 16:44 Urine Color Yellow (YELLOW) 01/02/17 16:38 Urine Clarity Clear (Clear) 01/02/17 16:38 Urine pH 6.0 (5.0-8.0) 01/02/17 16:38 Ur Specific [place] 1.008 (1.003-1.030) 01/02/17 16:38 Urine Protein 1+ mg/dL (NEGATIVE) H 01/02/17 16:38 Urine Glucose (UA) Normal mg/dL (Normal) 01/02/17 16:38 Urine Ketones Negative mg/dL (NEGATIVE) 01/02/17 16:38 Urine Blood Negative (NEGATIVE) 01/02/17 16:38 Urine Nitrate Negative (NEGATIVE) 01/02/17 16:38 Urine Bilirubin Negative (NEGATIVE) 01/02/17 16:38 Urine Urobilinogen Normal mg/dL (0.2-1.0) 01/02/17 16:38 Ur Leukocyte Esterase Trace Amee/uL (Negative) 01/02/17 16:38 Urine WBC (Auto) 10 /hpf (0-5) H 01/02/17 16:38 Urine RBC (Auto) < 1 /hpf (0-3) 01/02/17 16:38 Ur Squamous Epith Cells 5 /hpf (0-5) 01/02/17 16:38 Stool Occult Blood Negative (NEGATIVE) 01/03/17 20:28 Urine Opiates Screen Negative (NEGATIVE) 01/02/17 16:38 Urine Methadone Screen Negative (NEGATIVE) 01/02/17 16:38 Ur Barbiturates Screen Negative (NEGATIVE) 01/02/17 16:38 Ur Phencyclidine Scrn Negative (NEGATIVE) 01/02/17 16:38 Ur Amphetamines Screen Negative (NEGATIVE) 01/02/17 16:38 U Benzodiazepines Scrn Negative (NEGATIVE) 01/02/17 16:38 U Oth Cocaine Metabols Negative (NEGATIVE) 01/02/17 16:38 U Cannabinoids Screen Negative (NEGATIVE) 01/02/17 16:38 RPR Nonreactive (NONREACTIVE) 01/02/17 19:11 Hepatitis A IgM Ab Negative (NEGATIVE) 01/02/17 19:11 Hep Bs Antigen Negative (NEGATIVE) 01/02/17 19:11 Hep B Core IgM Ab Negative (NEGATIVE) 01/02/17 19:11 Hepatitis C Antibody Negative (NEGATIVE) 01/02/17 19:11 HIV 1&2 Antibody Screen Negative (NEGATIVE) 01/02/17 19:11 - Hospital Course Hospital Course: On admission: CC: Syncope Patient is a 76 year old female with past medical history of hypertension, hyperlipidemia, diabetes mellitus, and recurrent otitis media presenting to the ED with syncope. Patient states she has had 6 syncopal episodes in the past month, with most recent episode last night. Patient states each syncopal episode is preceded by diaphoresis, nausea, and dizziness, having to hold on to chair/counter before falling to ground. Patient can recall dizziness and nausea but does not remember falling to the ground. Patient is unsure if she lost consciousness during episodes and does not know how long she was on the ground. She states no one witnessed her 6 falls, but neighbor and/or brother has found her and awakened her on each occasion. Patient admits her neighbor found her on the floor in vomitus and urine. Patient denies history of seizures. Family reports patient has been forgetful in the past. She commonly misplaces her belongings and has left the stove on. She also notes history of multiple "mini-strokes" which started at age 17. She also admits to potential GI bleed as she had EGD and colonoscopy at [facility] with Dr. Andres Holland last week. Patient reports she underwent procedures to work-up black stools x 1 week prior and has had dysphagia to solids, losing 25 pounds in past month. She also notes a vague history of liver disease and states she could potentially require liver transplant in the future. Patient denies headache, fever, chills, visual changes, chest pain, palpitations, shortness of breath, cough, abdominal pain, nausea/vomiting, diarrhea/constipation, hematuria , lower extremity swelling, numbness, and tingling. 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), depression, cataracts FamHx: Father - prostate ca, DM, HTN, CAD, Mother - unknown, when pt was young; sisters - DM, SLE, brother - esophageal ca Meds: Ursodiol 500mg QID, Metformin 500mg, Januvia 100mg, Clopidogrel 75mg, Rosuvastatin 10mg, Valsartan/HCTZ 80/12.5, Mirtazapine 15mg, Escitalopram 20mg, Donepezil 10mg, Dexilant 30mg Allergies: NKDA PSHx: tonsillectomy, fx reduction radius/ulna (03/27/14), mastoidectomy x 2, bilateral catarct Hospitalizations: denies other than for scheduled surgeries Social: retired, lives alone in [facility] apartment (with elevator) but "leaves door open for neighbor", denies tobacco, alcohol, recreational drug use Hospital Course: Patient evaluated for syncope. Cardiogenic causes ruled out. Community Service Coordinator, Dr. Lopez, evaluated patient. If stenosis not detected on cardiac cath, patient may need implantable loop recorder. Patient to follow-up as an outpatient. ROMIs were negative x3. EKG showed NSR at rate of 74, left axis deviation. Patient had Shira Scan stress test in [address] Lopez which appears to have been normal. Patient had negative orthostatic vital signs. Blood pressure has been stable. Home antihypertensives were held as BP was normal without them. Patient was also evaluated for neurogenic cause of syncope. Patient seen by neurologist, Dr. Lopez. Head CT was normal. Prolactin was 17.7. As patient, lost urine and vomitus, seizure is being considered. Patient will need to follow up EEG outpatient. Syncope may have been a result of polypharmacy. Patient's BP meds and diabetic meds were held as her glucose and BP were normal without them. Patient also has microcytic anemia with dark stools which may be cause of syncope. FOBT was negative. GI was consulted. Dr. Peña saw patient and wants patient to follow up outpatient on 01/16. They recommend continuing the PPI. Patient was also found to have a 2.7cm mass in posterior segment of right hepatic lobe concerning for malignancy v. abscess. Patient will need a biopsy outpatient and will need to follow up with GI outpatient for that. Infectious causes ruled out. No leukocytosis. CXR no acute pulmonary disease. UA negative. Urine culture negative. Syncope likely secondary to hypoglycemia or low BP as her medicatioons were held and these values were normal. Patient also treated for 11th rib fracture. with ice packs, spirometer Q1H and duonebs. Patient discharged to [facility]. She needs to get biopsy of liver mass and f/ u with Neuro, GI and Cardio and her PMD. Imaging and results: Echocardiogram - The left ventricle systolic function is normal. The EF is >70% . No aortic regurgitation is present. There is no mitral valve regurgitation noted. There is mild tricuspid regurgitation and pulmonary hypertension. There is no pulmonic valvular regurgitation. Carotid Doppler - negative MRI with and without contrast: No evidence of enhancing mass lesion in the lateral ventricles or periventricular region. No evidence of enhancing mass lesion in the brain. Head CT: No acute intracranial pathology identified prolactin 17.7 HIV - negative, B12 419, Folate 9.3, RPR - nonreactive Neurology Consulted, Dr. Lopez, help appreciated MRA Head: Normal Head/Brain MRA MRA Neck: No evidence of hemodynamically significant stenosis in the carotid arteries at the neck. Brain MRI: age-related atrophy and chronic white matter ischemic changes. No evidence of acute intracranial abnormality. Small benign-appearing right parotid gland cyst seen measuring 11 mm. 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 Hemoglobin/Hematocrit 10.4/32.1 on discharge MCV 77.4 Iron 67, TIBC 308, % Saturation 22, Ferritin 85.7, Haptoglobin elevated 286, Reticulocyte count 1.3 FOBT - negative Recent colonoscopy for colonic polyps but needs repeat as patient could not tolerate prep due to emesis Patient had recent EGD. Requested EGD/Colonoscopy report from GI, Dr. Andres Holland: Per faxed medical records: Colonoscopy (11/29/16): preparation of colon non-satisfactory. Patient will require repeat colonoscopy as outpatient with Dr. Holland to evaluate for GI bleed. EGD bx: stomach antrum (11/22/16): gastric mucosa with mild chronic inflammation and reactive change. Negative for intestinal metaplasia. Immunostain for H. pylori negative. Gastritis. Patient will require outpatient referral to [facility] for further characterization of microcytic anemia. hemoglobin a1c 6.1 CXR: no acute pulmonary disease UA: negative Urine culture negative CXR: Mildly displaced lateral 11th rib fracture, appears acute. Hip X-ray: No acute displaced fracture or dislocation evident. Ribs with Chest X-Ray: Displaced rib fracture at the lateral right lower chest, possibly the right lateral 9th rib. No evidence of pneumothorax. Consult Orthopedic Surgeon, Dr. Awad, help appreciated. Alkaline Phosphatase 276 Ammonia <9L GGT 147 Hepatitis Panel - negative HIV negative Abdominal US: Two solid echogenic masses within the liver measuring up to 3.8 centimeters in the right hepatic lobe. These are of uncertain clinical etiology and correlation with a multiphasic CT or MR scan is recommended to better evaluate these lesions and exclude underlying neoplasm. Fatty infiltration of the liver. Cholelithiasis.Prominent common bile duct measuring 9 millimeters. Limited visualization of the pancreas and spleen. 2.5 centimeter upper pole left renal cyst. Incidentally noted is a prominent lymph node seen adjacent to the pancreas measuring up to 1.9 centimeters. MRI of abdomen and Pelvic 01/08/17 - 2.7cm mass in posterior segment of right hepatic lobe concerning for malignancy v. abscess (please see full report) Discharge Exam - Head Exam Head Exam: ATRAUMATIC, NORMAL INSPECTION, NORMOCEPHALIC - Eye Exam Eye Exam: EOMI - ENT Exam ENT Exam: Mucous Membranes Moist - Respiratory Exam Respiratory Exam: Clear to PA & Lateral, NORMAL BREATHING PATTERN, UNREMARKABLE. absent: Rhonchi, Wheezes - Cardiovascular Exam Cardiovascular Exam: REGULAR RHYTHM, +S1, +S2. absent: Gallop, Rubs, Systolic Murmur - GI/Abdominal Exam GI & Abdominal Exam: Normal Bowel Sounds, Soft. absent: Distended, Tenderness - Neurological Exam Neurological exam: Alert, Oriented x3 - Psychiatric Exam Psychiatric exam: Normal Affect, Normal Mood - Skin Skin Exam: Normal Color, Warm Discharge Plan - Follow Up Plan Condition: STABLE Disposition: TRANSF TO SNF Instructions: Left Heart Catheterization (DC), Gastrointestinal Bleeding (DC), Heart Healthy Diet (DC), Rib Fracture (DC), Syncope (DC), Fall Prevention for Older Adults (GEN), Fall Prevention (DC) Additional Instructions: Patient to be discharged to [facility] per dr. Naila Saldivar. Patient should resume all medications except BP and diabetic medications (valsartan, hydrochlorothiazide, metformin and sitagliptin) secondary to liver cirrhosis. Patient's DM is diet controlled. Patient should make an appointment and follow up with GI, Dr. Ferguson, Neuro, Dr. Lopez, and Cardio, Dr. Lopez, within one week. Patient should also make an appointment and follow up with PMD within one week. Patient given script to get biopsy of 2cm mass in right lobe of liver. Patient should return to ED immediately if symptoms return or worsen. Referrals: Marty HARRIS,MD Brooke [Medical Doctor] - Amari Lopez MD [Staff Provider] - Kaden Lopez MD [Staff Provider] - <Skip Saldivar - Last Filed: 02/16/17 14:56> Provider - Provider Date of Admission: 01/02/17 14:36 Attending physician: Zoila Ruby DO Hospital Course - Lab Results Lab Results: Micro Results 01/02/17 22:39 Urine Urine Culture - Final No Growth (<1,000 CFU/ML) Most Recent Lab Values WBC 7.6 K/uL (4.8-10.8) 01/08/17 07:16 RBC 4.12 Mil/uL (3.80-5.20) 01/08/17 07:16 Hgb 10.4 g/dL (11.0-16.0) L 01/08/17 07:16 Hct 32.1 % (34.0-47.0) L 01/08/17 07:16 MCV 77.9 fL (81.0-99.0) L 01/08/17 07:16 MCH 25.3 pg (27.0-31.0) L 01/08/17 07:16 MCHC 32.5 g/dL (33.0-37.0) L 01/08/17 07:16 RDW 16.9 % (11.5-14.5) H 01/08/17 07:16 Plt Count 419 K/uL (130-400) H 01/08/17 07:16 MPV 8.1 fL (7.2-11.7) 01/08/17 07:16 Neut % (Auto) 62.6 % (50.0-75.0) 01/08/17 07:16 Lymph % (Auto) 25.7 % (20.0-40.0) 01/08/17 07:16 [place] % (Auto) 8.3 % (0.0-10.0) 01/08/17 07:16 Eos % (Auto) 3.0 % (0.0-4.0) 01/08/17 07:16 Baso % (Auto) 0.4 % (0.0-2.0) 01/08/17 07:16 Neut # 4.7 K/uL (1.8-7.0) 01/08/17 07:16 Lymph # 2.0 K/uL (1.0-4.3) 01/08/17 07:16 [place] # 0.6 K/uL (0.0-0.8) 01/08/17 07:16 Eos # 0.2 K/uL (0.0-0.7) 01/08/17 07:16 Baso # 0.0 K/uL (0.0-0.2) 01/08/17 07:16 Retic Count 1.3 % (0.5-1.5) 01/03/17 07:24 Haptoglobin 286 mg/dL (43-212) H 01/03/17 07:24 PT 12.3 SECONDS (9.7-12.2) H 01/03/17 07:24 INR 1.1 01/03/17 07:24 APTT 30 SECONDS (21-34) 01/03/17 07:24 Sodium 140 mmol/L (132-148) 01/08/17 07:16 Potassium 4.2 mmol/L (3.6-5.2) 01/08/17 07:16 Chloride 98 mmol/L (98-107) 01/08/17 07:16 Carbon Dioxide 30 mmol/L (22-30) 01/08/17 07:16 Anion Gap 16 (10-20) 01/08/17 07:16 BUN 13 mg/dL (7-17) 01/08/17 07:16 Creatinine 0.8 MG/DL (0.7-1.2) 01/08/17 07:16 Est GFR ( Amer) > 60 01/08/17 07:16 Est GFR (Non-Af Amer) > 60 01/08/17 07:16 POC Glucose (mg/dL) 137 mg/dL (65-110) H 01/08/17 11:41 Random Glucose 96 mg/dL (65-105) 01/08/17 07:16 Hemoglobin A1c 6.1 % (4.2-6.5) 01/02/17 19:24 Calcium 8.7 mg/dl (8.6-10.4) 01/08/17 07:16 Magnesium 1.8 mg/dL (1.6-2.3) 01/08/17 07:16 Iron 67 ug/dL (37-170) 01/02/17 19:11 TIBC 285 ug/dL (250-450) 01/03/17 07:24 % Saturation 12 (20-55) L 01/03/17 07:24 Ferritin 85.7 ng/mL 01/03/17 07:24 Total Bilirubin 0.7 mg/dL (0.2-1.3) 01/08/17 07:16 GGT 147 U/L (8-78) H 01/03/17 19:45 AST 72 U/L (14-36) H D 01/08/17 07:16 ALT 48 U/L (9-52) 01/08/17 07:16 Alkaline Phosphatase 314 U/L (38-126) H 01/08/17 07:16 Ammonia < 9 umol/L (9-33) L 01/02/17 16:44 Total Creatine Kinase 35 U/L (30-135) 01/03/17 00:25 CK-MB (Mass) < 0.22 ng/mL (0.0-3.38) 01/03/17 00:25 Troponin I < 0.0120 ng/mL (0.00-0.120) 01/02/17 12:46 Troponin I, Quant < 0.0120 ng/mL (0.00-0.120) 01/03/17 00:25 NT-Pro-B Natriuret Pep 105 pg/mL (0-900) 01/02/17 19:11 Total Protein 7.0 g/dL (6.3-8.3) 01/08/17 07:16 Albumin 3.3 g/dL (3.5-5.0) L 01/08/17 07:16 Globulin 3.7 gm/dL (2.2-3.9) 01/08/17 07:16 Albumin/Globulin Ratio 0.9 (1.0-2.1) L 01/08/17 07:16 Triglycerides 132 mg/dL (0-149) 01/02/17 19:11 Cholesterol 146 mg/dL (0-199) 01/02/17 19:11 LDL Cholesterol Direct 69 mg/dL (0-129) 01/02/17 19:11 HDL Cholesterol 35 mg/dL (30-70) 01/02/17 19:11 Lipase 118 U/L (23-300) 01/02/17 19:11 Vitamin B12 419 pg/mL (239-931) 01/03/17 07:24 Folate 9.3 ng/mL 01/03/17 07:24 Prolactin 17.7 ng/mL (3.0-18.9) 01/02/17 16:44 Urine Color Yellow (YELLOW) 01/02/17 16:38 Urine Clarity Clear (Clear) 01/02/17 16:38 Urine pH 6.0 (5.0-8.0) 01/02/17 16:38 Ur Specific [place] 1.008 (1.003-1.030) 01/02/17 16:38 Urine Protein 1+ mg/dL (NEGATIVE) H 01/02/17 16:38 Urine Glucose (UA) Normal mg/dL (Normal) 01/02/17 16:38 Urine Ketones Negative mg/dL (NEGATIVE) 01/02/17 16:38 Urine Blood Negative (NEGATIVE) 01/02/17 16:38 Urine Nitrate Negative (NEGATIVE) 01/02/17 16:38 Urine Bilirubin Negative (NEGATIVE) 01/02/17 16:38 Urine Urobilinogen Normal mg/dL (0.2-1.0) 01/02/17 16:38 Ur Leukocyte Esterase Trace Amee/uL (Negative) 01/02/17 16:38 Urine WBC (Auto) 10 /hpf (0-5) H 01/02/17 16:38 Urine RBC (Auto) < 1 /hpf (0-3) 01/02/17 16:38 Ur Squamous Epith Cells 5 /hpf (0-5) 01/02/17 16:38 Stool Occult Blood Negative (NEGATIVE) 01/03/17 20:28 Urine Opiates Screen Negative (NEGATIVE) 01/02/17 16:38 Urine Methadone Screen Negative (NEGATIVE) 01/02/17 16:38 Ur Barbiturates Screen Negative (NEGATIVE) 01/02/17 16:38 Ur Phencyclidine Scrn Negative (NEGATIVE) 01/02/17 16:38 Ur Amphetamines Screen Negative (NEGATIVE) 01/02/17 16:38 U Benzodiazepines Scrn Negative (NEGATIVE) 01/02/17 16:38 U Oth Cocaine Metabols Negative (NEGATIVE) 01/02/17 16:38 U Cannabinoids Screen Negative (NEGATIVE) 01/02/17 16:38 RPR Nonreactive (NONREACTIVE) 01/02/17 19:11 Hepatitis A IgM Ab Negative (NEGATIVE) 01/02/17 19:11 Hep Bs Antigen Negative (NEGATIVE) 01/02/17 19:11 Hep B Core IgM Ab Negative (NEGATIVE) 01/02/17 19:11 Hepatitis C Antibody Negative (NEGATIVE) 01/02/17 19:11 HIV 1&2 Antibody Screen Negative (NEGATIVE) 01/02/17 19:11 Attending/Attestation - Attestation I have personally seen and examined this patient.: Yes I have fully participated in the care of the patient.: Yes I have reviewed all pertinent clinical information, including history, physical exam and plan: Yes Notes (Text): Patient Seen and examined with the resident. Agree with the resident's evaluation, assessment and plan. Patient evaluated for syncope. Cardiogenic causes ruled out. Community Service Coordinator, Dr. Lopez, evaluated patient. Patient was also evaluated for neurogenic cause of syncope. Patient seen by neurologist, Dr. Lopez. Head CT was normal. Prolactin was 17.7. As patient, lost urine and vomitus, seizure was being considered. Patient will need to follow up EEG outpatient. Syncope most likely may have been a result of polypharmacy.
--- NOTE | 2017-01-13 13:50 | CARDCATH ---
PROCEDURE DATE: 01/06/2017 PROCEDURE PERFORMED: Left heart catheterization, coronary angiography, left ventriculography. INDICATIONS: Dyspnea on exertion and syncope. COMPLICATIONS: None. HISTORY: The patient is a 76-year-old female with past medical history of hypertension, hypercholest erolemia, coronary artery disease with previous stent of the left anterior descending artery with dys pnea on exertion. The patient had a syncopal event. She is referred for cardiac catheterization due to progressive symptoms. DESCRIPTION OF PROCEDURE: Informed consent was obtained and cardiac catheterization was performed. FINDINGS: LEFT MAIN: Normal. LEFT ANTERIOR DESCENDING ARTERY: There is a previously placed stent in the mid left anterior descend ing artery. The stent is widely patent. The first diagonal branch is a small caliber vessel with a 90% stenosis. LEFT CIRCUMFLEX ARTERY: Minor luminal irregularities. RIGHT CORONARY ARTERY: Arises from the right sinus of Valsalva. This is a right dominant circulatio n. Minor luminal irregularities. LEFT VENTRICLE: Normal left ventricular systolic function, ejection fraction 55-60%. There is no mi tral regurgitation and no aortic stenosis. CONCLUSIONS: Widely patent stent in the left anterior descending artery. Small vessel branch diseas e of the diagonal branch, normal left ventricular function. PLAN: Medical therapy. Kaden Lopez MD cc: 258 TT: 01/13/2017 13:49:30 ct
--- NOTE | 2017-01-21 11:54 | CARD ---
APPROVED REPORT EKG Measurement Heart [id number] <Conclusion> Normal sinus rhythm Left axis deviation Abnormal ECG
== END 2017-01-08 15:25 | DRG 287 ==
LOC: C.ER 11:10 → C.9E 14:36 → C.6T 22:44
PROVIDERS: ADMIT Hospitalist; ATTEND Hospitalist
PROC: B2151ZZ Fluoroscopy of Left Heart using Low Osmolar Contrast (ICD-10-PCS; 2017-01-06)
PROC: B2111ZZ Fluoroscopy of Multiple Coronary Arteries using Low Osmolar Contrast (ICD-10-PCS; 2017-01-06)
PROC: 4A023N7 Measurement of Cardiac Sampling and Pressure, Left Heart, Percutaneous Approach (ICD-10-PCS; principal; 2017-01-06 12:00)
DX: I95.2 Hypotension due to drugs (principal); E11.649 Type 2 diabetes mellitus with hypoglycemia without coma; S22.31XA Fracture of one rib, right side, initial encounter for closed fracture; N17.9 Acute kidney failure, unspecified; K74.60 Unspecified cirrhosis of liver; R13.10 Dysphagia, unspecified; I10 Essential (primary) hypertension; D50.9 Iron deficiency anemia, unspecified; F17.210 Nicotine dependence, cigarettes, uncomplicated; R16.0 Hepatomegaly, not elsewhere classified; T46.5X5A Adverse effect of other antihypertensive drugs, initial encounter; G30.9 Alzheimer's disease, unspecified; F02.80 Dementia in other diseases classified elsewhere, unspecified severity, without behavioral disturbance, psychotic disturbance, mood disturbance, and anxiety; R55 Syncope and collapse; G47.30 Sleep apnea, unspecified; E78.5 Hyperlipidemia, unspecified; M19.90 Unspecified osteoarthritis, unspecified site; H66.90 Otitis media, unspecified, unspecified ear; W19.XXXA Unspecified fall, initial encounter; Y92.000 Kitchen of unspecified non-institutional (private) residence as the place of occurrence of the external cause; Z79.4 Long term (current) use of insulin; Z86.73 Personal history of transient ischemic attack (TIA), and cerebral infarction without residual deficits; Z91.81 History of falling; Z87.442 Personal history of urinary calculi; Z98.42 Cataract extraction status, left eye; Z98.41 Cataract extraction status, right eye; Z87.81 Personal history of (healed) traumatic fracture